=== PATIENT | female | born 1940 | race Two or more races ===

== ENCOUNTER 2024-04-07 16:54 | Emergency (ER) | payer MEDICAID, SELFPAY ==
[2024-04-07 17:20] VITALS: BP 147/87; PULSE 68; RESP 18; TEMP 37.2; O2SAT 94; BMI 34.3
--- NOTE | 2024-04-07 17:39 | XR_ITS ---
Examination: AP chest single view Technique one AP upright portable chest single view Exam date and time: April 07, 2024 1802 hours Comparison November 28, 2023 INDICATIONS: Chest pain beginning 3 days ago. 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
--- NOTE | 2024-04-07 17:39 | EKG_ITS ---
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
--- NOTE | 2024-04-07 17:40 | PD.EDRME ---
Rapid Medical Screening Exam RME Arrival date/time: 04/07/24 16:54 84-year-old female presents to the emergency department complaints of shortness of breath cough congestion x 3 days. I have greeted and performed a focused initial assessment of this patient. Initial appropriate labs ordered at this time. A comprehensive ED assessment and evaluation of the patient and analysis of all test and completion of medical decision making process will be conducted by additional ED provider. Chief Complaint: Flu Like Symptoms Time Seen by Provider: 04/07/24 17:16 Vital signs: Vital Signs Temperature 98.9 F 04/07/24 17:20 Pulse Rate 68 04/07/24 17:20 Respiratory Rate 18 04/07/24 17:20 Blood Pressure 147/87 H 04/07/24 17:20 Pulse Oximetry (%) 94 L 04/07/24 17:20 Oxygen Delivery Method Room Air 04/07/24 17:20
[2024-04-07] MEDS: ALBUTEROL/IPRATROPIUM (Duoneb) RT SOL 3 ML NEBU INH ×2 (18:27→20:20)
[2024-04-07 18:28] VITALS: PULSE 67; PULSE 72; RESP 14; RESP 92; O2SAT 93
[2024-04-07 18:37] LABS: Basophils % (Auto) 0 % (0-2.5); Eosinophils # (Auto) 0.3 Thou/mm3 (0.0-0.5); Eosinophils % (Auto) 4 % (0-10); Hematocrit 35.2 % (36.0-46.0); Hemoglobin 11.6 g/dL (12.0-16.0); Immature Granulocytes % (Auto) 0 % (0-0); Immature Granulocytes Auto 0.03 Thou/mm3 (0.00-0.00); Lymphocytes # (Auto) 2.6 Thou/mm3 (1.0-4.8); Lymphocytes % (Auto) 32 % (10-50); Mean Corpuscular Hemoglobin 30.7 pg (25.0-35.0); Mean Corpuscular Volume 93 fL (80-100); Monocytes # (Auto) 0.5 Thou/mm3 (0.0-0.8); Monocytes % (Auto) 7 % (0-12); Neutrophils # (Auto) 4.6 Thou/mm3 (1.8-7.7); Neutrophils % (Auto) 57 % (37-80); Nucleated Red Blood Cell % 0 /100 WBC (0); Platelet Count 228 Thou/mm3 (140-440); RDW Standard Deviation 46.3 fL (36.4-46.3); Red Blood Count 3.78 Miln/mm3 (4.00-5.20)
[2024-04-07 19:11] LABS: B-Type Natriuretic Peptide 84 pg/mL (0-100)
[2024-04-07 19:12] LABS: Partial Thromboplastin Time 28.5 Seconds (22.0-36.0); Prothrombin Time 11.4 Seconds (9.0-12.2)
[2024-04-07 19:23] LABS: Alanine Aminotransferase 10 U/L (10-49); Albumin, Serum 4.6 gm/dL (3.4-4.8); Albumin/Globulin Ratio 1.6 (1.2-2.2); Alkaline Phosphatase 119 U/L (46-116); Anion Gap 7 (7-16); Aspartate Amino Transferase 20 U/L (0-34); BUN/Creatinine Ratio 23 Ratio (12-20); Bilirubin,Total 0.3 mg/dL (0.3-1.2); Blood Urea Nitrogen 16 mg/dL (9-23); Calcium 10.2 mg/dL (8.3-10.6); Calcium (Corrected) 10.2 mg/dL (8.5-10.1); Carbon Dioxide 23.7 mMol/L (20.0-31.0); Chloride 107 mMol/L (98-107); Creatinine (Component) 0.7 mg/dL (0.6-1.3); Estimated Creatinine Clearance 65.3 mL/min (>60); Globulin 2.9 gm/dL (2.3-3.5); Glucose 110 mg/dL (74-106); Lipase 27 U/L (12-53); Magnesium 1.8 mg/dL (1.6-2.6); Osmolality,Calculated 277 (275-295); Sodium 138 mMol/L (136-145); Total Protein 7.5 gm/dL (5.7-8.2); Troponin I < 0.020 ng/mL (0.0-0.045); eGFR > 60 See Note
--- NOTE | 2024-04-07 19:53 | EDNOTE_ITS ---
Upper Respiratory Inf. RME/HPI General Chief Complaint: Flu Like Symptoms Stated Complaint: oxygen level low, cough, fever x 1wk Time Seen by Provider: 04/07/24 17:16 Arrival date/time: 04/07/24 16:54 Limitations: no limitations RME / HPI RME / HPI Narrative: 04/07/24 16:54 84-year-old female presents to the emergency department complaints of shortness of breath cough congestion x 3 days. I have greeted and performed a focused initial assessment of this patient. Initial appropriate labs ordered at this time. A comprehensive ED assessment and evaluation of the patient and analysis of all test and completion of medical decision making process will be conducted by additional ED provider. Dr. Garcia's Main ED Evaluation: 84yo female accompanied by her daughter pres ents to the ED for a chief complaint of flu-like symptoms x 3 days. Patient's daughter states the patient has had a cough and fever at home for the last 3 days. Daughter states the patient started feeling short of breath today, so she brought her in for evaluation. She denies any BLE swelling, N/V or any other associated symptoms. No known allergies. Related Data Home Medications ?Medication ?Instructions ?Recorded ?Confirmed amlodipine 5 mg tablet 5 mg PO QDAY 01/12/23 01/12/23 losartan 100 mg tablet 100 mg PO QDAY 01/12/23 01/12/23 Previous Rx's ?Medication ?Instructions ?Recorded metoprolol tartrate 25 mg tablet 25 mg PO BID #60 tabs 12/13/18 albuterol sulfate 90 mcg/actuation 2 puff inhalation Q6H PRN 03/29/23 aerosol inhaler (Ventolin HFA) shortness of breath or wheezing #8.5 grams amoxicillin 875 mg-potassium 1 tab PO BID #14 tabs 03/29/23 clavulanate 125 mg tablet albuterol sulfate 90 mcg/actuation 2 inh inhalation Q6H PRN shortness 11/28/23 breath activated powder inhaler of breath #1 ea (ProAir RespiClick) nirmatrelvir 300 mg (150 mg See Rx Instructions PO .COMPLEX 11/28/23 x2)-ritonavir 100 mg tablet,dose #30 tabs pack (Paxlovid) albuterol sulfate 90 mcg/actuation 2 puff inhalation Q6H PRN cough 5 04/07/24 aerosol inhaler days #8.5 grams amoxicillin 875 mg-potassium 1 tab PO BID #14 tabs 04/07/24 clavulanate 125 mg tablet Allergies Allergy/AdvReac Type Severity Reaction Status Date / Time No Known Allergies Allergy Verified 04/07/24 16:58 Review of Systems Review of Systems Systems Reviewed: All systems reviewed, normal except as documented Past Medical History Past Medical History NEUROLOGIC: Positive Neurological Disorders and Seizures (30 years ago) CARDIAC: Positive Cardiac Disorders, Hypercholesterolemia, Edema, Deep Vein Thrombosis, Hypertension and Hypotension; Negative Congestive Heart Failure RESPIRATORY: Positive Asthma and Bronchitis; Negative Chronic Obstructive Pulmonary Disease (COPD) GASTROINTESTINAL: Positive Gastrointestinal Disorders (ventral hernia repair); Negative Hepatitis GENITOURINARY: Negative Genitourinary Disorders or Renal Disease MUSCULOSKELETAL: Positive Musculoskeletal Disorders and Arthritis ENT: Positive Cataracts, Glaucoma and Blind (blind right side) ENDOCRINE: Negative Endocrine Disorders, Diabetes Mellitus Type 1 or Diabetes Mellitus Type 2 HEMATOLOGIC: Negative Sickle Cell Disease OTHER HISTORY: Positive Hospitalization and Blood Transfusions; Negative Falls, Blood Transfusion Reaction, Anesthesia Reactions or Cancer Family History FAMILY HISTORY: Positive Family Respiratory Disorders, Family Cardiac Disorders and Family Cancer Surgical History SURGICAL: Positive Abdominal Surgery and Hysterectomy Social History SMOKING STATUS: Never smoker SUBSTANCE USE: does not use ED Exam General Limitations: Present no limitations General appearance: Present alert and in no apparent distress Head Head exam: Present atraumatic Eye Eye exam: Present normal appearance, PERRL and EOMI ENT ENT exam: Present normal exam, normal oropharynx and mucous membranes moist Neck Neck exam: Present normal inspection, full ROM and trachea midline Chest Chest inspection: Present normal inspection and symmetric chest wall rise Respiratory Respiratory exam: Present other (rhonchi bilaterally) Cardiovascular Cardiovascular exam: Present regular rate, normal rhythm and normal heart sounds Abdominal Exam Abdominal exam: Present soft and normal bowel sounds Extremities Exam Extremities exam: Present normal inspection and full ROM; Absent pedal edema Back Exam Back exam: Present normal inspection and full ROM Neurological Exam Neurological exam: Present alert, oriented X3 and CN II-XII intact Psychiatric Psychiatric exam: Present normal affect and normal mood Skin Skin exam: Present warm, dry, intact and normal color Course Course Course Narrative: CXR is ordered for determining the etiology of shortness of breath. Quality Measures none Orders Category Date Time Status Bedside COVID-19 Antigen Test NOW Care 04/07/24 17:39 Active Bedside Influenza A&B Antigen Test NOW Care 04/07/24 17:40 Active Crop Supervisor STAT Care 04/07/24 17:39 Active Continuous Pulse Oximetry ONCE Care 04/07/24 17:39 Active EKG (ED ONLY) *Do not use* NOW Care 04/07/24 17:39 Completed Insert IV STAT Care 04/07/24 17:39 Active EKG (ED Only) Stat Exams 04/07/24 17:39 Draft XR chest 1V portable Stat Exams 04/07/24 17:39 Completed B-Type Natriuretic Peptide Stat Lab 04/07/24 18:19 Completed CBC Stat Lab 04/07/24 18:19 Completed Comprehensive Metabolic Panel Stat Lab 04/07/24 18:19 Completed Lipase Stat Lab 04/07/24 18:19 Completed Magnesium Stat Lab 04/07/24 18:19 Completed Partial Thromboplastin Time Stat Lab 04/07/24 18:19 Completed Prothrombin Time with INR Stat Lab 04/07/24 18:19 Completed Troponin I Stat Lab 04/07/24 18:19 Completed Albuterol/Ipratr Rt Tari [Duoneb Rt Tari] Med 04/07/24 17:39 Discontinued 3 ml INH X1 ONE Albuterol/Ipratr Rt Tari [Duoneb Rt Tari] Med 04/07/24 19:59 Discontinued 3 ml INH X1 ONE Dexamethasone Inj [Decadron Inj] Med 04/07/24 19:59 Discontinued 10 mg PO X1 ONE Oxygen Delivery NOW RT 04/07/24 17:39 Active Vital Signs Vital signs: Vital Signs Temperature 98.9 F 04/07/24 17:20 Pulse Rate 68 04/07/24 17:20 Respiratory Rate 18 04/07/24 17:20 Blood Pressure 147/87 H 04/07/24 17:20 Pulse Oximetry (%) 94 L 04/07/24 17:20 Oxygen Delivery Method Room Air 04/07/24 17:20 Upper Respiratory Infection Patient data External records reviewed:: [facility] previous records (Per chart review, patient was seen here on 11/28/23 for pneumonia 2/2 COVID.) Clinical information provided by:: patient and family Social determinants that could affect healthcare access:: none Patient has the following chronic illnesses:: HTN, HLD, asthma How is presenting disease/condition affected by chronic disease/condition?: exacerbated by Evaluation data The following diagnostics were reviewed and interpreted by me:: lab results, radiology exam(s) and EKG tracing(s) Lab and/or radiology exams considered but not ordered:: none Interpretation Summary: Bedside COVID and Influenza swabs are negative, CBC is normal, CMP is normal, BNP is normal, Troponin is normal, according to my interpretation. EKG done at 1822, NSR, rate of 67, left axis deviation, old LBBB, no scarbosa criteria, similar to previous EKG done in 11/2023, according to my interpretation. ------ I have personally reviewed the radiology data and agree with the radiologist's interpretation below: [facility] Report Signed Patient: SHIREEN COLLINS Record#: [id number] Birthdate: 1940 Age/Sex: 84 / F Location: [facility] Attending Dr: Ordering Physician: Lashon Pollack Date of Service: 04/07/24 Procedure(s): XR chest 1V portable Accession Number(s): [id number] cc: Luis Carlos Mendoza MD; NO PRIMARY/FAMILY,PHYSICIAN; Lashon Pollack~ Examination: AP chest single view Technique one AP upright portable chest single view Exam date and time: April 07, 2024 1802 hours Comparison November 28, 2023 INDICATIONS: Chest pain beginning 3 days ago. 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 Dictated By: Luis Carlos Mendoza MD Signed By: <Electronically signed by Luis Carlos Mendoza MD in [place]> 04/07/24 1825 Medications / Prescriptions Medications or Prescriptions considered but not ordered:: none Medication administrations:: Medication Administration History Discontinued Medications Albuterol/Ipratropium (Albuterol/Ipratropium (Duoneb) Rt Tari 3 Ml Nebu) 3 ml INH X1 ONE Stop: 04/07/24 17:40 Last Admin: 04/07/24 18:27 Dose: 3 ml Documented By: ETHAN Albuterol/Ipratropium (Albuterol/Ipratropium (Duoneb) Rt Tari 3 Ml Nebu) 3 ml INH X1 ONE Stop: 04/07/24 20:00 Last Admin: 04/07/24 20:20 Dose: 3 ml Documented By: ETHAN Dexamethasone Sodium Phosphate (Dexamethasone Sod Phos Inj 10 Mg/Ml Vial) 10 mg PO X1 ONE Stop: 04/07/24 20:00 Last Admin: 04/07/24 20:08 Dose: 10 mg Documented By: RICHARD see above Consultations Consultation(s) initiated? (list below): No Diagnosis Upper Respiratory Differential Diagnosis: upper respiratory infection, viral infection and other (pneumonia, COVID, bacterial pneumonia) Most likely diagnosis given after review of the tests above:: see below Admission Indicated Admission indicated?: not indicated Admission Request Was there a request for admission?: No Disposition Plan Disposition Plan: Discharge Discharge Attestation Discharge Attestation: The patient and all family members were given an opportunity to ask questions and understood the discharge instructions. Discharge instructions specifically effects, indications for sooner follow up or return to the emergency department, and the expected course of current diagnosis. Patient condition: Stable Discharge Plan Plan Patient Disposition: HOME (Self Care) Patient condition on transfer: Stable Prescriptions/Referrals Prescriptions/Med Rec: No Action metoprolol tartrate 25 mg Tablet 25 mg PO BID Qty: 60 0RF Hold Instructions: f/u with PCP amlodipine 5 mg Tablet 5 mg PO QDAY Hold Instructions: f/u with PCP losartan 100 mg tablet 100 mg PO QDAY Hold Instructions: f/u with PCP amoxicillin-pot clavulanate 875-125 mg tablet 1 tab PO BID Qty: 14 0RF albuterol sulfate [Ventolin HFA] 90 mcg/actuation HFA aerosol inhaler 2 puff inhalation Q6H PRN (Reason: shortness of breath or wheezing) Qty: 8.5 0RF ProAir RespiClick 90 mcg/actuation aerosol powdr breath activated 2 inh inhalation Q6H PRN (Reason: shortness of breath) Qty: 1 0RF Paxlovid 300 mg (150 mg x 2)-100 mg tablets,dose pack See Rx Instructions .ROUTE .COMPLEX Qty: 30 0RF Rx Instructions: take TWO 150 mg tablets of nirmatrelvir with ONE 100 mg tablet of ritonavir twice daily for 5 days Referrals: No Primary/Family,Physician [Primary Care Provider] - In 1 week Problem List Clinical Impression: Upper respiratory infection, CAP (community acquired pneumonia) Patient/Caregiver Discharge Instructions Education Materials: ED Pneumonia (Adult) Print Language: Guamanian Stand Alone Forms: [employer]ki Award Info., Patient Portal Info Letter
[2024-04-07] MEDS: DEXAMETHASONE SOD PHOS INJ 10 MG/ML VIAL PO (20:08)
[2024-04-07 20:21] VITALS: PULSE 66; RESP 14; O2SAT 95
[2024-04-07] MEDS: AMOXICILLIN/POT CLAV 875 TABLET 1 TAB PO (21:59)
== END 2024-04-07 22:25 | disposition home or self-care (01) ==
PROVIDERS: Nurse Practitioner Primary Care; Emergency Provider Emergency Medicine
DX: J18.9 Pneumonia, unspecified organism (principal); J06.9 Acute upper respiratory infection, unspecified; R94.31 Abnormal electrocardiogram [ECG] [EKG]
CPT/HCPCS: 36415; 71045; 80053; 83690; 83735; 83880; 84484; 85025; 85610; 85730; 93005; 94640; 99284; A9270; J1100

== ENCOUNTER 2024-04-12 21:21 | Inpatient (IN) | payer MEDICAID, SELFPAY ==
--- NOTE | 2024-04-12 21:23 | XR_ITS ---
Examination: AP chest single view Technique: AP portable upright chest single view Exam date and time: April 12, 2024 2159 hrs. Comparison April 07, 2018 Indications: Shortness of breath today. Findings: Minor prominence left ventricle Accentuation of bronchovascular markings No lobar pneumonia Prominent osteopenia Impression: Bronchitis pattern
--- NOTE | 2024-04-12 21:25 | PD.EDADULT ---
ED General RME/HPI General Chief complaint: General Adult/Misc Complain Stated complaint: GENERAL ILLNESS Time Seen by Provider: 04/12/24 21:23 Arrival date/time: 04/12/24 21:21 CC: Generalized weakness and not feeling well patient presents to the ER with 1 week of symptoms patient was diagnosed 1 week ago with pneumonia is on her last day of antibiotics. EMS report ambulatory speaking in full sentences on 24-hour oxygen. After walking some distance patient was tachycardic but the minute she sat down the heart rate became normal. Patient has no chest pain shortness of breath or difficulty breathing. Related Data Home Medications ?Medication ?Instructions ?Recorded ?Confirmed amlodipine 5 mg tablet 5 mg PO QDAY 01/12/23 01/12/23 losartan 100 mg tablet 100 mg PO QDAY 01/12/23 01/12/23 Previous Rx's ?Medication ?Instructions ?Recorded metoprolol tartrate 25 mg tablet 25 mg PO BID #60 tabs 12/13/18 albuterol sulfate 90 mcg/actuation 2 puff inhalation Q6H PRN 03/29/23 aerosol inhaler (Ventolin HFA) shortness of breath or wheezing #8.5 grams amoxicillin 875 mg-potassium 1 tab PO BID #14 tabs 03/29/23 clavulanate 125 mg tablet albuterol sulfate 90 mcg/actuation 2 inh inhalation Q6H PRN shortness 11/28/23 breath activated powder inhaler of breath #1 ea (ProAir RespiClick) nirmatrelvir 300 mg (150 mg See Rx Instructions PO .COMPLEX 11/28/23 x2)-ritonavir 100 mg tablet,dose #30 tabs pack (Paxlovid) amoxicillin 875 mg-potassium 1 tab PO BID #14 tabs 04/07/24 clavulanate 125 mg tablet Allergies Allergy/AdvReac Type Severity Reaction Status Date / Time No Known Allergies Allergy Unverified 04/06/18 11:38 Review of Systems Review of Systems Narrative Review of Systems: GEN: No fever, no chills, no weight loss EYES: No discharge, no visual changes, no pain HEENT: No ear pain, no congestion, no sore throat PULM: No shortness of breath, no cough, no congestion CV: No chest pain, no dyspnea on exertion, no palpitations GI: No nausea, no vomiting, no diarrhea, no pain, no constipation : No frequency, no urgency, no dysuria MUSC/SKEL: No joint pain, no back pain SKIN: No rash PSYCH: No hallucinations, no depression HEME/LYMPH: No easy bleeding or bruising tendencies NEURO: + weakness, no headache Past Medical History Past Medical History NEUROLOGIC: Positive Migraine CARDIAC: Positive Cardiac Disorders, Hypercholesterolemia and Hypertension (TAKES MEDS); Negative Congestive Heart Failure RESPIRATORY: Positive Chronic Obstructive Pulmonary Disease (COPD), Asthma and Pneumonia GASTROINTESTINAL: Positive Gastrointestinal Disorders and Gastroesophageal Reflux Disease GENITOURINARY: Negative Renal Disease REPRODUCTIVE: Positive Previous Pregnancies (X6) MUSCULOSKELETAL: Positive Musculoskeletal Disorders and Arthritis ENT: Positive Cataracts (LEFT EYE) ENDOCRINE: Positive Diabetes Mellitus Type 2; Negative Diabetes Mellitus Type 1 HEMATOLOGIC: Negative Blood Disorders or Sickle Cell Disease PSYCHO/SOCIAL: Positive Anxiety (TAKES MEDS) OTHER HISTORY: Positive Chicken Pox, Measles and Mumps; Negative Blood Transfusions or Anesthesia Reactions Family History FAMILY HISTORY: Positive Family Cancer (SISTER /BREAST CA) Surgical History SURGICAL: Positive Cardiac Surgery, Open Heart Surgery, Coronary Artery Bypass Graft, Coronary Stent (X3 STENTS) and Angiogram (X3) Social History SMOKING STATUS: Never smoker ED Exam Narrative Physical exam: [General: Obese not in any acute distress Head normocephalic HEENT: 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 All other subsystems of HEENT are within acceptable limits Neck is supple nontender Chest equal chest rise nontender to palpation Respiratory: Clear to auscultation no wheezes crackles or rubs CV: Rate rhythm is regular no murmurs rubs or clicks Abdomen is distended secondary to body habitus soft nontender no masses positive bowel sounds all 4 quadrants Back: No CVA tenderness no spinous process tenderness from cervical spine thoracic and lumbar spine Skin: Intact no petechiae rash induration ulceration or crepitus Extremities: Moving all extremity against resistance cap refill less than 2 seconds neurosensory intact. Minimal edema in the lower extremities. Neuro: Awake alert oriented x3 Glascow coma 15 no focal deficits] Course Quality Measures none Orders Category Date Time Status Bedside COVID-19 Antigen Test NOW Care 04/12/24 23:58 Active COVID-19 Screening Questionnaire NOW Care 04/13/24 06:07 Active Decision to Admit X1 Care 04/13/24 06:07 Completed Saline [Insert IV] NOW Care 04/12/24 23:[address] angio chest abdomen pelvis Stat Exams 04/12/24 23:[address] head/brain wo con Stat Exams 04/12/24 23:57 Completed EKG (ED Only) Stat Exams 04/12/24 21:28 Draft XR chest 1V Stat Exams 04/12/24 21:23 Completed BNP [B-Type Natriuretic Peptide] Stat Lab 04/12/24 23:58 Completed CBC Stat Lab 04/12/24 21:35 Completed CBC Stat Lab 04/12/24 22:57 Completed CMP [Comprehensive Metabolic Panel] Stat Lab 04/12/24 22:57 Completed Comprehensive Metabolic Panel Stat Lab 04/12/24 21:35 Completed D-Dimer Stat Lab 04/12/24 23:58 Completed Lipase Stat Lab 04/12/24 22:57 Completed Magnesium Stat Lab 04/12/24 23:59 Completed RSV [Respiratory Syncytial Virus Ag] Stat Lab 04/12/24 05:43 Completed TSH [Thyroid Stimulating Hormone] Stat Lab 04/12/24 23:59 Completed Troponin I Stat Lab 04/12/24 21:35 Completed Troponin I Stat Lab 04/12/24 22:57 Completed UA, C/S IF [Urinalysis, C/S if Indicated] Stat Lab 04/12/24 23:59 Ordered Urinalysis Stat Lab 04/12/24 21:24 Ordered ACETAMINOPHEN w/COD 300-30 [Tylenol w/Cod #3] Med 04/12/24 23:56 Discontinued 2 tab PO X1 ONE Albuterol/Ipratr Rt Tari [Duoneb Rt Tari] Med 04/12/24 23:56 Discontinued 3 ml INH X1 ONE Azithromycin Inj [Zithromax Inj] 500 mg Med 04/13/24 06:08 Discontinued Sodium Chloride 0.9% 250 ml [Ns] 250 ml IV X1 MethylPREDNISolone.* [SoluMEDROL Inj] Med 04/12/24 23:56 Discontinued 125 mg IVP X1 ONE Ondansetron Odt [Zofran Odt] Med 04/12/24 22:44 Discontinued 4 mg PO X1 ONE cefTRIAXone/D5w 1gm IV premix [Rocephin/D5w 1gm IV Med 04/13/24 06:08 Discontinued premix] 50 ml IV X1 Vital Signs Vital signs: Vital Signs Pulse Rate 66 04/12/24 21:27 Respiratory Rate 20 04/12/24 21:27 Blood Pressure 188/97 H 04/12/24 21:27 Pulse Oximetry (%) 97 04/12/24 21:27 [facility] Patient data External records reviewed:: [facility] previous records and EMS form Clinical information provided by:: patient and EMS Social determinants that could affect healthcare access:: none Patient has the following chronic illnesses:: Hypertension diabetes hyperlipidemia on Plavix How is presenting disease/condition affected by chronic disease/condition?: uneffected by Evaluation data The following diagnostics were reviewed and interpreted by me:: lab results, radiology exam(s) and EKG tracing(s) Lab and/or radiology exams considered but not ordered:: EKG performed at 2144 shows a ventricular rate of 72 NH interval 166 QRS of 169 QTc of 436 this is a left axis deviation. Most recent EKG for comparison was March 2018 shows a sinus rhythm nonspecific ST segment changes but no left bundle branch block. Interpretation Summary: Pneumonia Medications Medications considered but not ordered:: None Medication administrations:: Medication Administration History Acetaminophen (Acetaminophen 325 Mg Tablet) 650 mg PO Q6H PRN PRN Reason: Mild Pain 1-3 or Fever >100.4 Stop: 05/13/24 07:55 Albuterol/Ipratropium (Albuterol/Ipratropium (Duoneb) Rt Tari 3 Ml Nebu) 3 ml INH Q4HRRT [facility] Stop: 05/13/24 10:59 Last Admin: 04/13/24 10:45 Dose: 3 ml Documented By: GREGORIO Heparin Sodium (Porcine) (Heparin Sod Inj 5000 Unit/Ml Vial) 5,000 unit SC Q12HR NANNETTE Stop: 04/27/24 08:59 Last Admin: 04/13/24 08:44 Dose: 5,000 unit Documented By: GIO Co-signed By: JIMBO Ceftriaxone Sodium/Dextrose (Rocephin/D5w 1gm Iv Premix) 50 mls @ 100 mls/hr IV 2100 NANNETTE Stop: 04/20/24 20:59 Azithromycin 500 mg/ Sodium (Chloride) 250 mls @ 250 mls/hr IV X1 ONE Stop: 04/14/24 09:59 Losartan Potassium (Losartan Potassium 25 Mg Tablet) 100 mg PO QDAY NANNETTE Stop: 05/13/24 08:59 Last Admin: 04/13/24 08:44 Dose: 100 mg Documented By: GIO Pantoprazole Sodium (Pantoprazole Inj 40 Mg Vial) 40 mg IV QDAY NANNETTE Stop: 05/13/24 08:59 Last Admin: 04/13/24 08:44 Dose: 40 mg Documented By: GIO Discontinued Medications Acetaminophen/Codeine Phosphate (Acetaminophen W/Cod 300-30 Tablet) 2 tab PO X1 ONE Stop: 04/12/24 23:57 Last Admin: 04/13/24 01:07 Dose: 2 tab Documented By: TOR Albuterol/Ipratropium (Albuterol/Ipratropium (Duoneb) Rt Tari 3 Ml Nebu) 3 ml INH X1 ONE Stop: 04/12/24 23:57 Last Admin: 04/13/24 00:42 Dose: 3 ml Documented By: ETHAN Azithromycin 500 mg/ Sodium (Chloride) 250 mls @ 250 mls/hr IV X1 ONE Stop: 04/13/24 07:07 Last Infusion: 04/13/24 08:02 Dose: Infused Documented By: Admin: 04/13/24 06:45 Dose: 250 mls/hr Documented By: TOR Ceftriaxone Sodium/Dextrose (Rocephin/D5w 1gm Iv Premix) 50 mls @ 100 mls/hr IV X1 ONE Stop: 04/13/24 06:37 Last Infusion: 04/13/24 08:02 Dose: Infused Documented By: Admin: 04/13/24 06:44 Dose: 100 mls/hr Documented By: TOR Magnesium Sulfate (Magnesium Sulfate Ivpb) 2 gm in 50 mls @ 25 mls/hr IV X1 ONE Stop: 04/13/24 10:02 Last Infusion: 04/13/24 11:00 Dose: Infused Documented By: Admin: 04/13/24 08:44 Dose: 25 mls/hr Documented By: GIO Azithromycin 500 mg/ Sodium (Chloride) 250 mls @ 250 mls/hr IV X1 ONE Stop: 04/13/24 13:59 Methylprednisolone Sodium Succinate (Methylprednisolone Sod Succ 62.5 Mg/Ml 2ml Vial) 125 mg IVP X1 ONE Stop: 04/12/24 23:57 Last Admin: 04/13/24 01:08 Dose: 125 mg Documented By: TOR Ondansetron HCl (Ondansetron Odt 4 Mg Tabrap) 4 mg PO X1 ONE; Protocol Stop: 04/12/24 22:45 Last Admin: 04/13/24 01:08 Dose: 4 mg Documented By: TOR Sodium Chloride (Sodium Chloride Rt 10% 15 Ml Nebu) 5 ml INH X1 ONE Stop: 04/13/24 07:57 None Consultations Consultation(s) initiated? (list below): No Diagnosis Differential Diagnosis ED Complaint MDM: Pneumonia ACS MT CHF Most likely diagnosis given after review of the tests above:: Pneumonia Admission Indicated Admission indicated?: indicated Explain why admission is indicated or not indicated:: Stable for admission Admission Request Was there a request for admission?: No Disposition Plan Disposition Plan: Admit Medical Decision Making Differential Diagnosis Differential Diagnosis: Pneumonia ACS MT CHF Lab Data 04/12/24 22:57 04/12/24 22:57 Labs: Lab Results 04/12/24 04/12/24 04/12/24 Range/Units 00:00 05:43 21:35 WBC 10.4 (3.6-11.0) Thou/mm3 RBC 3.94 L (4.00-5.20) Miln/mm3 Hgb 12.1 (12.0-16.0) g/dL Hct 36.5 (36.0-46.0) % MCV 93 (80-100) fL MCH 30.7 (25.0-35.0) pg MCHC 33.2 (31.0-37.0) g/dl RDW Std Deviation 46.0 (36.4-46.3) fL Plt Count 259 (140-440) Thou/mm3 Neut % (Auto) 53 (37-80) % Lymph % (Auto) 37 (10-50) % Gilchrist % (Auto) 5 (0-12) % Eos % (Auto) 3 (0-10) % Baso % (Auto) 0 (0-2.5) % Neut # (Auto) 5.6 (1.8-7.7) Thou/mm3 Lymph # (Auto) 3.9 (1.0-4.8) Thou/mm3 Gilchrist # (Auto) 0.6 (0.0-0.8) Thou/mm3 Eos # (Auto) 0.3 (0.0-0.5) Thou/mm3 Baso # (Auto) 0.0 (0.0-0.2) Thou/mm3 Immature Gran # (Auto) 0.06 H (0.00-0.00) Thou/mm3 Absolute Nucleated RBC 0.00 (0.00-0.00) Thou/mm3 Immature Gran % 1 H (0-0) % Nucleated RBC % 0 (0) /100 WBC D-Dimer 2310 H (<600) ng/mL Sodium 141 (136-145) mMol/L Potassium 4.1 (3.4-5.1) mMol/L Chloride 109 H (98-107) mMol/L Carbon Dioxide 23.3 (20.0-31.0) mMol/L Anion Gap 9 (7-16) BUN 13 (9-23) mg/dL Creatinine 0.7 (0.6-1.3) mg/dL Estim Creat Clear Calc eGFR > 60 (60 - ) See Note BUN/Creatinine Ratio 19 (12-20) Ratio Glucose 103 (74-106) mg/dL Calculated Osmolality 281 (275-295) Calcium 10.4 (8.3-10.6) mg/dL Corrected Calcium 10.4 H (8.5-10.1) mg/dL Magnesium 1.6 (1.6-2.6) mg/dL Total Bilirubin 0.4 (0.3-1.2) mg/dL AST 21 (0-34) U/L ALT 11 (10-49) U/L Alkaline Phosphatase 111 (46-116) U/L Troponin I < 0.020 (0.0-0.045) ng/mL B-Natriuretic Peptide 119 H (0-100) pg/mL Total Protein 7.0 (5.7-8.2) gm/dL Albumin 4.1 (3.4-4.8) gm/dL Globulin 2.9 (2.3-3.5) gm/dL Albumin/Globulin Ratio 1.4 (1.2-2.2) Lipase (12-53) U/L TSH 1.88 (0.55-4.78) uIU/mL RSV Rapid Negative (Negative) 04/12/24 Range/Units 22:57 WBC 10.1 (3.6-11.0) Thou/mm3 RBC 4.01 (4.00-5.20) Miln/mm3 Hgb 12.3 (12.0-16.0) g/dL Hct 37.2 (36.0-46.0) % MCV 93 (80-100) fL MCH 30.7 (25.0-35.0) pg MCHC 33.1 (31.0-37.0) g/dl RDW Std Deviation 46.8 H (36.4-46.3) fL Plt Count 273 (140-440) Thou/mm3 Neut % (Auto) 55 (37-80) % Lymph % (Auto) 35 (10-50) % Gilchrist % (Auto) 6 (0-12) % Eos % (Auto) 3 (0-10) % Baso % (Auto) 0 (0-2.5) % Neut # (Auto) 5.6 (1.8-7.7) Thou/mm3 Lymph # (Auto) 3.5 (1.0-4.8) Thou/mm3 Gilchrist # (Auto) 0.6 (0.0-0.8) Thou/mm3 Eos # (Auto) 0.3 (0.0-0.5) Thou/mm3 Baso # (Auto) 0.0 (0.0-0.2) Thou/mm3 Immature Gran # (Auto) 0.07 H (0.00-0.00) Thou/mm3 Absolute Nucleated RBC 0.00 (0.00-0.00) Thou/mm3 Immature Gran % 1 H (0-0) % Nucleated RBC % 0 (0) /100 WBC D-Dimer (<600) ng/mL Sodium 142 (136-145) mMol/L Potassium 4.1 (3.4-5.1) mMol/L Chloride 108 H (98-107) mMol/L Carbon Dioxide 25.7 (20.0-31.0) mMol/L Anion Gap 8 (7-16) BUN 13 (9-23) mg/dL Creatinine 0.8 (0.6-1.3) mg/dL Estim Creat Clear Calc Not Performed. eGFR > 60 (60 - ) See Note BUN/Creatinine Ratio 16 (12-20) Ratio Glucose 101 (74-106) mg/dL Calculated Osmolality 283 (275-295) Calcium 10.6 (8.3-10.6) mg/dL Corrected Calcium 10.6 H (8.5-10.1) mg/dL Magnesium (1.6-2.6) mg/dL Total Bilirubin 0.4 (0.3-1.2) mg/dL AST 23 (0-34) U/L ALT 10 (10-49) U/L Alkaline Phosphatase 111 (46-116) U/L Troponin I < 0.020 (0.0-0.045) ng/mL B-Natriuretic Peptide (0-100) pg/mL Total Protein 7.3 (5.7-8.2) gm/dL Albumin 4.4 (3.4-4.8) gm/dL Globulin 2.9 (2.3-3.5) gm/dL Albumin/Globulin Ratio 1.5 (1.2-2.2) Lipase 31 (12-53) U/L TSH (0.55-4.78) uIU/mL RSV Rapid (Negative) Discharge Plan Plan Patient Disposition: Admit Acute Care w/in Hospital Problem List Clinical Impression: Acute respiratory failure with hypoxia, Pneumonia
[2024-04-12 21:27] VITALS: BP 188/97; PULSE 66; RESP 20; O2SAT 97
--- NOTE | 2024-04-12 21:28 | EKG_ITS ---
[facility] Test Date: 2024-04-12 Pat Name: SHIREEN OROZCO Department: Room: - Gender: Female [employer]r: : 1940 Requested By: Aung Nice Order Number: [id number] Reading MD: Aung Nice Measurements Intervals [place] Rate: 72 P: 48 MO: 166 QRS: -53 QRSD: 169 T: 109 QT: 412 QTc: 452 Interpretive Statements SINUS RHYTHM MARKED LEFT AXIS DEVIATION [QRS AXIS < -30] LEFT BUNDLE BRANCH BLOCK [120+ ms QRS DURATION, 80+ ms Q/S IN V1/V2, 85+ ms R IN I/aVL/V5/V6] Compared to ECG 03/28/2018 05:13:53 Left-axis deviation now present Left bundle-branch block now present Atrial abnormality no longer present T-wave abnormality no longer present /store/S0/[id number].pdf
[2024-04-12 21:41] LABS: Basophils % (Auto) 0 % (0-2.5); Eosinophils # (Auto) 0.3 Thou/mm3 (0.0-0.5); Eosinophils % (Auto) 3 % (0-10); Hematocrit 36.5 % (36.0-46.0); Hemoglobin 12.1 g/dL (12.0-16.0); Immature Granulocytes % (Auto) 1 % (0-0); Immature Granulocytes Auto 0.06 Thou/mm3 (0.00-0.00); Lymphocytes # (Auto) 3.9 Thou/mm3 (1.0-4.8); Lymphocytes % (Auto) 37 % (10-50); Mean Corpuscular HGB Conc 33.2 g/dl (31.0-37.0); Mean Corpuscular Hemoglobin 30.7 pg (25.0-35.0); Mean Corpuscular Volume 93 fL (80-100); Monocytes # (Auto) 0.6 Thou/mm3 (0.0-0.8); Monocytes % (Auto) 5 % (0-12); Neutrophils # (Auto) 5.6 Thou/mm3 (1.8-7.7); Neutrophils % (Auto) 53 % (37-80); Nucleated Red Blood Cell % 0 /100 WBC (0); Platelet Count 259 Thou/mm3 (140-440); Red Blood Count 3.94 Miln/mm3 (4.00-5.20); White Blood Count 10.4 Thou/mm3 (3.6-11.0)
[2024-04-12 22:00] VITALS: PULSE 80; RESP 16; O2SAT 98; BMI 33.3
[2024-04-12 22:00] LABS: Alanine Aminotransferase 11 U/L (10-49); Albumin, Serum 4.1 gm/dL (3.4-4.8); Albumin/Globulin Ratio 1.4 (1.2-2.2); Alkaline Phosphatase 111 U/L (46-116); Anion Gap 9 (7-16); Aspartate Amino Transferase 21 U/L (0-34); BUN/Creatinine Ratio 19 Ratio (12-20); Bilirubin,Total 0.4 mg/dL (0.3-1.2); Blood Urea Nitrogen 13 mg/dL (9-23); Calcium 10.4 mg/dL (8.3-10.6); Calcium (Corrected) 10.4 mg/dL (8.5-10.1); Carbon Dioxide 23.3 mMol/L (20.0-31.0); Chloride 109 mMol/L (98-107); Creatinine (Component) 0.7 mg/dL (0.6-1.3); Globulin 2.9 gm/dL (2.3-3.5); Glucose 103 mg/dL (74-106); Osmolality,Calculated 281 (275-295); Potassium 4.1 mMol/L (3.4-5.1); Sodium 141 mMol/L (136-145); Troponin I < 0.020 ng/mL (0.0-0.045); eGFR > 60 See Note
--- NOTE | 2024-04-12 22:42 | PD.EDRME ---
Rapid Medical Screening Exam RME Arrival date/time: 04/12/24 22:35 CC: Low center abdominal pain HPI onset 830 this evening after eating 1 episode of vomiting no diarrhea currently the pain is 6 on a 10 scale initial assessment by EMS show the pain was an 8 on a 10 scale denies any diarrhea history of hypertension took her last amlodipine this evening. Is awake alert oriented nontoxic-appearing EMS report hypertensive and tachycardia and route. Chief Complaint: General Adult/Misc Complain Time Seen by Provider: 04/12/24 22:42 Vital signs: Vital Signs Temperature 98 F 04/12/24 22:45 Pulse Rate 89 04/12/24 22:45 Respiratory Rate 17 04/12/24 22:45 Blood Pressure 188/97 H 04/12/24 22:45 Pulse Oximetry (%) 95 04/12/24 22:45 Oxygen Delivery Method Room Air 04/12/24 22:45
[2024-04-12 22:45] VITALS: BP 188/97; PULSE 89; RESP 17; TEMP 36.6; O2SAT 95
--- NOTE | 2024-04-12 22:49 | EDNOTE_ITS ---
ED General RME/HPI General Chief complaint: General Adult/Misc Complain Stated complaint: GENERAL ILLNESS Time Seen by Provider: 04/12/24 21:23 Arrival date/time: 04/12/24 22:35 CC: Generalized weakness and chest pain HPI ongoing for the past 3 days, the patient was seen here recently diagnosed with pneumonia and discharged home. The patient states the last day of antibiotics was today. The patient is awake alert oriented. Related Data Home Medications ?Medication ?Instructions ?Recorded ?Confirmed amlodipine 5 mg tablet 5 mg PO QDAY 01/12/23 01/12/23 losartan 100 mg tablet 100 mg PO QDAY 01/12/23 01/12/23 Previous Rx's ?Medication ?Instructions ?Recorded metoprolol tartrate 25 mg tablet 25 mg PO BID #60 tabs 12/13/18 albuterol sulfate 90 mcg/actuation 2 puff inhalation Q6H PRN 03/29/23 aerosol inhaler (Ventolin HFA) shortness of breath or wheezing #8.5 grams amoxicillin 875 mg-potassium 1 tab PO BID #14 tabs 03/29/23 clavulanate 125 mg tablet albuterol sulfate 90 mcg/actuation 2 inh inhalation Q6H PRN shortness 11/28/23 breath activated powder inhaler of breath #1 ea (ProAir RespiClick) nirmatrelvir 300 mg (150 mg See Rx Instructions PO .COMPLEX 11/28/23 x2)-ritonavir 100 mg tablet,dose #30 tabs pack (Paxlovid) amoxicillin 875 mg-potassium 1 tab PO BID #14 tabs 04/07/24 clavulanate 125 mg tablet Allergies Allergy/AdvReac Type Severity Reaction Status Date / Time No Known Allergies Allergy Unverified 04/06/18 11:38 Review of Systems Review of Systems Narrative Review of Systems: GEN: No fever, no chills, no weight loss EYES: No discharge, no visual changes, no pain HEENT: No ear pain, no congestion, no sore throat PULM: No shortness of breath, no cough, no congestion CV: No chest pain, no dyspnea on exertion, no palpitations GI: No nausea, no vomiting, no diarrhea, no pain, no constipation : No frequency, no urgency, no dysuria MUSC/SKEL: No joint pain, no back pain SKIN: No rash PSYCH: No hallucinations, no depression HEME/LYMPH: No easy bleeding or bruising tendencies NEURO: + weakness, no headache Past Medical History Past Medical History NEUROLOGIC: Positive Neurological Disorders and Seizures (30 years ago) CARDIAC: Positive Cardiac Disorders, Hypercholesterolemia, Edema, Deep Vein Thrombosis, Hypertension and Hypotension; Negative Congestive Heart Failure RESPIRATORY: Positive Asthma and Bronchitis; Negative Chronic Obstructive Pulmonary Disease (COPD) GASTROINTESTINAL: Positive Gastrointestinal Disorders (ventral hernia repair); Negative Hepatitis GENITOURINARY: Negative Genitourinary Disorders or Renal Disease MUSCULOSKELETAL: Positive Musculoskeletal Disorders and Arthritis ENT: Positive Cataracts, Glaucoma and Blind (blind right side) ENDOCRINE: Negative Endocrine Disorders, Diabetes Mellitus Type 1 or Diabetes Mellitus Type 2 HEMATOLOGIC: Negative Sickle Cell Disease OTHER HISTORY: Positive Hospitalization and Blood Transfusions; Negative Falls, Blood Transfusion Reaction, Anesthesia Reactions or Cancer Family History FAMILY HISTORY: Positive Family Respiratory Disorders, Family Cardiac Disorders and Family Cancer Surgical History SURGICAL: Positive Abdominal Surgery and Hysterectomy Social History SMOKING STATUS: Never smoker SUBSTANCE USE: does not use ED Exam Narrative Physical exam: [General: Obese not in any acute distress Head normocephalic HEENT: Within acceptable limits Neck is supple nontender Chest equal chest rise nontender to palpation Respiratory: Clear to auscultation no wheezes crackles or rubs CV: Rate rhythm is regular no murmurs rubs or clicks Abdomen is distended secondary to body habitus soft nontender no masses positive bowel sounds all 4 quadrants Back: No CVA tenderness no spinous process tenderness from cervical spine thoracic and lumbar spine Skin: Intact no petechiae rash induration ulceration or crepitus Extremities: Moving all extremity against resistance cap refill less than 2 seconds neurosensory intact Neuro: Awake alert oriented x2, person and place, Glascow coma 15 no focal deficits] Course Quality Measures none Orders Category Date Time Status Bedside COVID-19 Antigen Test NOW Care 04/12/24 23:58 Active COVID-19 Screening Questionnaire NOW Care 04/13/24 06:07 Active Decision to Admit X1 Care 04/13/24 06:07 Completed Saline [Insert IV] NOW Care 04/12/24 23:[address] angio chest abdomen pelvis Stat Exams 04/12/24 23:[address] head/brain wo con Stat Exams 04/12/24 23:57 Completed EKG (ED Only) Stat Exams 04/12/24 21:28 Draft XR chest 1V Stat Exams 04/12/24 21:23 Completed BNP [B-Type Natriuretic Peptide] Stat Lab 04/12/24 23:58 Completed CBC Stat Lab 04/12/24 21:35 Completed CBC Stat Lab 04/12/24 22:57 Completed CMP [Comprehensive Metabolic Panel] Stat Lab 04/12/24 22:57 Completed Comprehensive Metabolic Panel Stat Lab 04/12/24 21:35 Completed D-Dimer Stat Lab 04/12/24 23:58 Completed Lipase Stat Lab 04/12/24 22:57 Completed Magnesium Stat Lab 04/12/24 23:59 Completed RSV [Respiratory Syncytial Virus Ag] Stat Lab 04/12/24 05:43 Completed TSH [Thyroid Stimulating Hormone] Stat Lab 04/12/24 23:59 Completed Troponin I Stat Lab 04/12/24 21:35 Completed Troponin I Stat Lab 04/12/24 22:57 Completed UA, C/S IF [Urinalysis, C/S if Indicated] Stat Lab 04/12/24 23:59 Ordered Urinalysis Stat Lab 04/12/24 21:24 Ordered ACETAMINOPHEN w/COD 300-30 [Tylenol w/Cod #3] Med 04/12/24 23:56 Discontinued 2 tab PO X1 ONE Albuterol/Ipratr Rt Tari [Duoneb Rt Tari] Med 04/12/24 23:56 Discontinued 3 ml INH X1 ONE Azithromycin Inj [Zithromax Inj] 500 mg Med 04/13/24 06:08 Discontinued Sodium Chloride 0.9% 250 ml [Ns] 250 ml IV X1 MethylPREDNISolone.* [SoluMEDROL Inj] Med 04/12/24 23:56 Discontinued 125 mg IVP X1 ONE Ondansetron Odt [Zofran Odt] Med 04/12/24 22:44 Discontinued 4 mg PO X1 ONE cefTRIAXone/D5w 1gm IV premix [Rocephin/D5w 1gm IV Med 04/13/24 06:08 Discontinued premix] 50 ml IV X1 Vital Signs Vital signs: Vital Signs Pulse Rate 66 04/12/24 21:27 Respiratory Rate 20 04/12/24 21:27 Blood Pressure 188/97 H 04/12/24 21:27 Pulse Oximetry (%) 97 04/12/24 21:27 [facility] Patient data External records reviewed:: [facility] previous records and EMS form Clinical information provided by:: patient and EMS Social determinants that could affect healthcare access:: none Patient has the following chronic illnesses:: Recent diagnosis of pneumonia hypertension How is presenting disease/condition affected by chronic disease/condition?: u neffected by Evaluation data The following diagnostics were reviewed and interpreted by me:: lab results, radiology exam(s) and EKG tracing(s) Lab and/or radiology exams considered but not ordered:: See MDM Interpretation Summary: Bradycardia Medications Medications considered but not ordered:: None Medication administrations:: Medication Administration History Acetaminophen (Acetaminophen 325 Mg Tablet) 650 mg PO Q6H PRN PRN Reason: Mild Pain 1-3 or Fever >100.4 Stop: 05/13/24 07:55 Albuterol/Ipratropium (Albuterol/Ipratropium (Duoneb) Rt Tari 3 Ml Nebu) 3 ml INH Q4HRRT FOR[facility], 1928–1983 Stop: 05/13/24 10:59 Last Admin: 04/13/24 10:45 Dose: 3 ml Documented By: GREGORIO Heparin Sodium (Porcine) (Heparin Sod Inj 5000 Unit/Ml Vial) 5,000 unit SC Q12HR [facility], 1928–1983 Stop: 04/27/24 08:59 Last Admin: 04/13/24 08:44 Dose: 5,000 unit Documented By: GIO Co-signed By: JIMBO Ceftriaxone Sodium/Dextrose (Rocephin/D5w 1gm Iv Premix) 50 mls @ 100 mls/hr IV 2100 FOR[facility]LY [facility], 1928–1983 Stop: 04/20/24 20:59 Azithromycin 500 mg/ Sodium (Chloride) 250 mls @ 250 mls/hr IV X1 ONE Stop: 04/14/24 09:59 Losartan Potassium (Losartan Potassium 25 Mg Tablet) 100 mg PO QDAY FOR[facility], [facility]1983 Stop: 05/13/24 08:59 Last Admin: 04/13/24 08:44 Dose: 100 mg Documented By: GIO Pantoprazole Sodium (Pantoprazole Inj 40 Mg Vial) 40 mg IV QDAY [facility], 1928–1983 Stop: 05/13/24 08:59 Last Admin: 04/13/24 08:44 Dose: 40 mg Documented By: GIO Discontinued Medications Acetaminophen/Codeine Phosphate (Acetaminophen W/Cod 300-30 Tablet) 2 tab PO X1 ONE Stop: 04/12/24 23:57 Last Admin: 04/13/24 01:07 Dose: 2 tab Documented By: TOR Albuterol/Ipratropium (Albuterol/Ipratropium (Duoneb) Rt Tari 3 Ml Nebu) 3 ml INH X1 ONE Stop: 04/12/24 23:57 Last Admin: 04/13/24 00:42 Dose: 3 ml Documented By: ETHAN Azithromycin 500 mg/ Sodium (Chloride) 250 mls @ 250 mls/hr IV X1 ONE Stop: 04/13/24 07:07 Last Infusion: 04/13/24 08:02 Dose: Infused Documented By: Admin: 04/13/24 06:45 Dose: 250 mls/hr Documented By: TOR Ceftriaxone Sodium/Dextrose (Rocephin/D5w 1gm Iv Premix) 50 mls @ 100 mls/hr IV X1 ONE Stop: 04/13/24 06:37 Last Infusion: 04/13/24 08:02 Dose: Infused Documented By: Admin: 04/13/24 06:44 Dose: 100 mls/hr Documented By: TOR Magnesium Sulfate (Magnesium Sulfate Ivpb) 2 gm in 50 mls @ 25 mls/hr IV X1 ONE Stop: 04/13/24 10:02 Last Infusion: 04/13/24 11:00 Dose: Infused Documented By: Admin: 04/13/24 08:44 Dose: 25 mls/hr Documented By: GIO Azithromycin 500 mg/ Sodium (Chloride) 250 mls @ 250 mls/hr IV X1 ONE Stop: 04/13/24 13:59 Methylprednisolone Sodium Succinate (Methylprednisolone Sod Succ 62.5 Mg/Ml 2ml Vial) 125 mg IVP X1 ONE Stop: 04/12/24 23:57 Last Admin: 04/13/24 01:08 Dose: 125 mg Documented By: TOR Ondansetron HCl (Ondansetron Odt 4 Mg Tabrap) 4 mg PO X1 ONE; Protocol Stop: 04/12/24 22:45 Last Admin: 04/13/24 01:08 Dose: 4 mg Documented By: TOR Sodium Chloride (Sodium Chloride Rt 10% 15 Ml Nebu) 5 ml INH X1 ONE Stop: 04/13/24 07:57 None Consultations Consultation(s) initiated? (list below): No Diagnosis Differential Diagnosis ED Complaint MDM: Bradycardia ACS [place] Most likely diagnosis given after review of the tests above:: Bradycardia Admission Indicated Admission indicated?: indicated Explain why admission is indicated or not indicated:: Requires further medical management Admission Request Was there a request for admission?: No Disposition Plan Disposition Plan: Admit Medical Decision Making Differential Diagnosis Differential Diagnosis: Bradycardia ACS [place] Lab Data 04/12/24 22:57 04/12/24 22:57 Labs: Lab Results 04/12/24 04/12/24 04/12/24 Range/Units 00:00 05:43 21:35 WBC 10.4 (3.6-11.0) Thou/mm3 RBC 3.94 L (4.00-5.20) Miln/mm3 Hgb 12.1 (12.0-16.0) g/dL Hct 36.5 (36.0-46.0) % MCV 93 (80-100) fL MCH 30.7 (25.0-35.0) pg MCHC 33.2 (31.0-37.0) g/dl RDW Std Deviation 46.0 (36.4-46.3) fL Plt Count 259 (140-440) Thou/mm3 Neut % (Auto) 53 (37-80) % Lymph % (Auto) 37 (10-50) % [place] % (Auto) 5 (0-12) % Eos % (Auto) 3 (0-10) % Baso % (Auto) 0 (0-2.5) % Neut # (Auto) 5.6 (1.8-7.7) Thou/mm3 Lymph # (Auto) 3.9 (1.0-4.8) Thou/mm3 [place] # (Auto) 0.6 (0.0-0.8) Thou/mm3 Eos # (Auto) 0.3 (0.0-0.5) Thou/mm3 Baso # (Auto) 0.0 (0.0-0.2) Thou/mm3 Immature Gran # (Auto) 0.06 H (0.00-0.00) Thou/mm3 Absolute Nucleated RBC 0.00 (0.00-0.00) Thou/mm3 Immature Gran % 1 H (0-0) % Nucleated RBC % 0 (0) /100 WBC D-Dimer 2310 H (<600) ng/mL Sodium 141 (136-145) mMol/L Potassium 4.1 (3.4-5.1) mMol/L Chloride 109 H (98-107) mMol/L Carbon Dioxide 23.3 (20.0-31.0) mMol/L Anion Gap 9 (7-16) BUN 13 (9-23) mg/dL Creatinine 0.7 (0.6-1.3) mg/dL Estim Creat Clear Calc eGFR > 60 (60 - ) See Note BUN/Creatinine Ratio 19 (12-20) Ratio Glucose 103 (74-106) mg/dL Calculated Osmolality 281 (275-295) Calcium 10.4 (8.3-10.6) mg/dL Corrected Calcium 10.4 H (8.5-10.1) mg/dL Magnesium 1.6 (1.6-2.6) mg/dL Total Bilirubin 0.4 (0.3-1.2) mg/dL AST 21 (0-34) U/L ALT 11 (10-49) U/L Alkaline Phosphatase 111 (46-116) U/L Troponin I < 0.020 (0.0-0.045) ng/mL B-Natriuretic Peptide 119 H (0-100) pg/mL Total Protein 7.0 (5.7-8.2) gm/dL Albumin 4.1 (3.4-4.8) gm/dL Globulin 2.9 (2.3-3.5) gm/dL Albumin/Globulin Ratio 1.4 (1.2-2.2) Lipase (12-53) U/L TSH 1.88 (0.55-4.78) uIU/mL RSV Rapid Negative (Negative) 04/12/24 Range/Units 22:57 WBC 10.1 (3.6-11.0) Thou/mm3 RBC 4.01 (4.00-5.20) Miln/mm3 Hgb 12.3 (12.0-16.0) g/dL Hct 37.2 (36.0-46.0) % MCV 93 (80-100) fL MCH 30.7 (25.0-35.0) pg MCHC 33.1 (31.0-37.0) g/dl RDW Std Deviation 46.8 H (36.4-46.3) fL Plt Count 273 (140-440) Thou/mm3 Neut % (Auto) 55 (37-80) % Lymph % (Auto) 35 (10-50) % [place] % (Auto) 6 (0-12) % Eos % (Auto) 3 (0-10) % Baso % (Auto) 0 (0-2.5) % Neut # (Auto) 5.6 (1.8-7.7) Thou/mm3 Lymph # (Auto) 3.5 (1.0-4.8) Thou/mm3 [place] # (Auto) 0.6 (0.0-0.8) Thou/mm3 Eos # (Auto) 0.3 (0.0-0.5) Thou/mm3 Baso # (Auto) 0.0 (0.0-0.2) Thou/mm3 Immature Gran # (Auto) 0.07 H (0.00-0.00) Thou/mm3 Absolute Nucleated RBC 0.00 (0.00-0.00) Thou/mm3 Immature Gran % 1 H (0-0) % Nucleated RBC % 0 (0) /100 WBC D-Dimer (<600) ng/mL Sodium 142 (136-145) mMol/L Potassium 4.1 (3.4-5.1) mMol/L Chloride 108 H (98-107) mMol/L Carbon Dioxide 25.7 (20.0-31.0) mMol/L Anion Gap 8 (7-16) BUN 13 (9-23) mg/dL Creatinine 0.8 (0.6-1.3) mg/dL Estim Creat Clear Calc Not Performed. eGFR > 60 (60 - ) See Note BUN/Creatinine Ratio 16 (12-20) Ratio Glucose 101 (74-106) mg/dL Calculated Osmolality 283 (275-295) Calcium 10.6 (8.3-10.6) mg/dL Corrected Calcium 10.6 H (8.5-10.1) mg/dL Magnesium (1.6-2.6) mg/dL Total Bilirubin 0.4 (0.3-1.2) mg/dL AST 23 (0-34) U/L ALT 10 (10-49) U/L Alkaline Phosphatase 111 (46-116) U/L Troponin I < 0.020 (0.0-0.045) ng/mL B-Natriuretic Peptide (0-100) pg/mL Total Protein 7.3 (5.7-8.2) gm/dL Albumin 4.4 (3.4-4.8) gm/dL Globulin 2.9 (2.3-3.5) gm/dL Albumin/Globulin Ratio 1.5 (1.2-2.2) Lipase 31 (12-53) U/L TSH (0.55-4.78) uIU/mL RSV Rapid (Negative) Discharge Plan Plan Patient Disposition: Admit Acute Care w/in Hospital Problem List Clinical Impression: Acute respiratory failure with hypoxia, Pneumonia
[2024-04-12 23:13] LABS: Basophils % (Auto) 0 % (0-2.5); Eosinophils # (Auto) 0.3 Thou/mm3 (0.0-0.5); Eosinophils % (Auto) 3 % (0-10); Hematocrit 37.2 % (36.0-46.0); Hemoglobin 12.3 g/dL (12.0-16.0); Immature Granulocytes % (Auto) 1 % (0-0); Immature Granulocytes Auto 0.07 Thou/mm3 (0.00-0.00); Lymphocytes # (Auto) 3.5 Thou/mm3 (1.0-4.8); Lymphocytes % (Auto) 35 % (10-50); Mean Corpuscular HGB Conc 33.1 g/dl (31.0-37.0); Mean Corpuscular Hemoglobin 30.7 pg (25.0-35.0); Mean Corpuscular Volume 93 fL (80-100); Monocytes # (Auto) 0.6 Thou/mm3 (0.0-0.8); Monocytes % (Auto) 6 % (0-12); Neutrophils # (Auto) 5.6 Thou/mm3 (1.8-7.7); Neutrophils % (Auto) 55 % (37-80); Nucleated Red Blood Cell % 0 /100 WBC (0); Platelet Count 273 Thou/mm3 (140-440); RDW Standard Deviation 46.8 fL (36.4-46.3); Red Blood Count 4.01 Miln/mm3 (4.00-5.20); White Blood Count 10.1 Thou/mm3 (3.6-11.0)
[2024-04-12 23:35] LABS: Alanine Aminotransferase 10 U/L (10-49); Albumin, Serum 4.4 gm/dL (3.4-4.8); Albumin/Globulin Ratio 1.5 (1.2-2.2); Alkaline Phosphatase 111 U/L (46-116); Anion Gap 8 (7-16); Aspartate Amino Transferase 23 U/L (0-34); BUN/Creatinine Ratio 16 Ratio (12-20); Bilirubin,Total 0.4 mg/dL (0.3-1.2); Blood Urea Nitrogen 13 mg/dL (9-23); Calcium 10.6 mg/dL (8.3-10.6); Calcium (Corrected) 10.6 mg/dL (8.5-10.1); Carbon Dioxide 25.7 mMol/L (20.0-31.0); Chloride 108 mMol/L (98-107); Creatinine (Component) 0.8 mg/dL (0.6-1.3); Globulin 2.9 gm/dL (2.3-3.5); Glucose 101 mg/dL (74-106); Lipase 31 U/L (12-53); Osmolality,Calculated 283 (275-295); Potassium 4.1 mMol/L (3.4-5.1); Sodium 142 mMol/L (136-145); Total Protein 7.3 gm/dL (5.7-8.2); Troponin I < 0.020 ng/mL (0.0-0.045); eGFR > 60 See Note
--- NOTE | 2024-04-12 23:57 | XR_ITS ---
Examination: CTA chest, with intravenous contrast. CTA abdomen, with intravenous contrast. CTA pelvis, with intravenous contrast. 2-D sagittal and coronal reconstructions. 3-D reconstructions. Date and time of exam: April 13, 2024 0207 hrs. Indications: Onset chest pain shortness of breath congestion abdominal pain today CTDI vol (mgy) 17.0 DLP (MGycm) 1257 Technique: Multiple CTA images, 2.0 mm slice thickness, obtained chest, abdomen, pelvis, with the high-resolution 64 slice scanner. 100 cc Isovue-370 is administered intravenously. Sagittal and coronal 2-D reconstructions are obtained. 3-D reconstructions, angiographic images are obtained. 3-D postprocessing, including vascular maximum intensity projections. Low dose protocols were performed. One or more of the following dose reduction techniques were used; automated exposure control, adjustment of the mA and/or KV according to patient size, use of iterative reconstruction technique. Findings: Right thyromegaly with 13 mm right thyroid nodule No thoracic aortic aneurysm dilatation No pulmonary artery emboli Mild enlargement left atrium left ventricle Bilateral lung opacity consistent with pneumonia No focal liver or splenic lesion No gallstones 8 cm cystic lesion above the left kidney No pancreatic or adrenal mass Aorta normal size No bowel obstruction No CT findings of appendicitis or diverticulitis Mild thickening urinary bladder wall No pelvic mass Severe osteopenia Impression: Right thyromegaly with 13 mm right thyroid nodule, recommend thyroid sonography follow-up Negative for pulmonary artery emboli No thoracic aortic aneurysm dilatation Patchy areas of bilateral pneumonia 8mm cystic lesion above the left kidney, recommend abdominal sonography follow-up No CT findings of appendicitis bowel obstruction or diverticulitis Mild cystitis pattern
--- NOTE | 2024-04-12 23:57 | XR_ITS ---
Examination: CT brain head without contrast. 2-D sagittal coronal reconstructions Date and time of exam:April 13, 2024 0200 hrs. Indications: Onset altered mental status today CTDI: vol (mGy):53.7 DLP: (mGycm):1078 Technique: Multiple CT axial sections of the brain have been obtained, 5 mm slice thickness. Contrast has not been administered. 2-D sagittal, coronal reconstructions have been obtained Low dose protocols were performed. One or more of the following dose reduction techniques were used; automated exposure control, adjustment of the mA and/or KV according to patient size, use of iterative reconstruction technique. Findings: No significant ventricular enlargement. Intra-axial or extra-axial hemorrhage density is not seen. No mass effect or midline shift Basal cisterns are not remarkable. Fourth ventricle is midline. Cranial vault intact. Impression: Negative for acute hemorrhage, mass effect or midline shift
[2024-04-13] VITALS (19 sets, daily range): BP systolic 125–181; BP diastolic 60–111; PULSE 57–84; RESP 15–21; TEMP 36.2–37.1; O2SAT 91–99
[2024-04-13] MEDS: ALBUTEROL/IPRATROPIUM (Duoneb) RT SOL 3 ML NEBU INH ×5 (00:42→23:52)
[2024-04-13 01:02] LABS: D-Dimer 2310 ng/mL (<600)
[2024-04-13 01:06] LABS: Magnesium 1.6 mg/dL (1.6-2.6); Thyroid Stimulating Hormone 1.88 uIU/mL (0.55-4.78)
[2024-04-13] MEDS: ACETAMINOPHEN w/COD 300-30 TABLET 2 TAB PO (01:07)
[2024-04-13] MEDS: ONDANSETRON ODT 4 MG TABRAP PO (01:08)
[2024-04-13] MEDS: MethylPREDNISolone SOD SUCC 62.5 MG/ML 2ML VIAL 125 MG IVP (01:08)
[2024-04-13 01:52] LABS: B-Type Natriuretic Peptide 119 pg/mL (0-100)
--- NOTE | 2024-04-13 05:18 | PD.EDADDENDU ---
Emergency Room Addendum Addendum Narrative: At 11 PM on 04/12/2024, I took over the care from Aung Baer NP, see his notes for complete H&P and ED course. I reviewed all diagnostic test results. My interpretation of the EKG is sinus rhythm with no acute ST?T changes. My interpretation of the chest x-ray is increased bronchial markings. My review of the head CT report is: My review of the chest/abdomen/pelvis CT report is: Blood tests remarkable for D-dimer 2310, BNP 119. Urine specimen pending. At this point, diagnoses include Treatment here included Significant improvement Not yet done: I discussed the case with our hospitalist. About the presentation and exam and diagnostics and treatments here. And need of further care in the hospital. Will accept the patient. Not yet done: Based on my best medical judgment, made decision no further evaluation or treatment indicated at this time. Patient understands and agrees to the discharge instructions customized and printed, see below. Ramón Chandler MD
[2024-04-13 06:27] LABS: Respiratory Syncytial Virus Ag Negative (Negative)
[2024-04-13] MEDS: cefTRIAXone/D5w 1gm IV premix 50 ML IV ×2 (06:44→22:44)
[2024-04-13] MEDS: AZITHROMYCIN INJ 500 MG in SODIUM CHLORIDE 0.9% 250 ML 250 ML 250 MG IV (06:45)
--- NOTE | 2024-04-13 07:10 | EVENTNT_ITS ---
Documentation for date of: 04/13/24 Event Note Event Note: Received a call around 6:04 AM on 04/13 for patient emergency room 9, 84-year-old female with past medical history of hypertension, history of PE not on anticoagulation, overactive bladder presenting with generalized weakness, c hest pain and shortness of breath requiring supplemental oxygenation. ED physician stated that the patient usually uses as needed oxygen; however, has been requiring 2 L in the ED. Of note, the patient presented hypertensive, heart rate of 66, tachypneic but afebrile and satting 97. Pertinent lab and imaging findings included WBC of 10.1, EKG showed normal sinus rhythm with left axis deviation and left bundle branch block which has been previously seen, chest x-ray showed bronchitis pattern but CT of chest abdomen pelvis states multifocal pneumonia along with hiatal hernia and dilated left atrium but with no evidence of PE. CT head was negative for any acute process, but there was noted periventricular chronic small vessel ischemia. Patient was recently seen in the ED for pneumonia and sent home with Augmentin regimen; however, it appears that symptoms have worsened and she failed outpatient therapy. Signed out the patient to the morning hospitalist team. Johnathan Elias, PGY-1
[2024-04-13] MEDS: HEPARIN SOD INJ 5000 UNIT/ML VIAL SC ×2 (08:44→22:44)
[2024-04-13] MEDS: LOSARTAN POTASSIUM 25 MG TABLET 100 MG PO (08:44)
[2024-04-13] MEDS: Magnesium Sulfate 2 GM Ivpb 2 GM/50 ML BAG IV (08:44)
[2024-04-13] MEDS: PANTOPRAZOLE INJ 40 MG VIAL IV (08:44)
--- NOTE | 2024-04-13 10:47 | PC.RT ---
PT WEARS 2LPM HOME O2 WITH CONCENTRATOR. NO CPAP MACHINE AT HOME, CANCELLED PER MD
--- NOTE | 2024-04-13 10:54 | PC.CC ---
Patient is a 84 year-old female who presents to the hospital for Pneumonia. Chanell KEYES made [id number] contact with patient. ASW introduced self, role, and reason for visit. Patient appeared alert and oriented to self, location, and situation. Patient was pleasant and engaged in initial assessment. Patient confirmed information on demographics and reports to living with her son, Lenin Dunbar . Per patient, patient ambulates independently at home but has been struggling and believes she would benefit from a walker. Patient is able to complete her own ADLs. Patient uses oxygen at home. Primary care provider is Jose Padilla and for prescription medication she uses [facility] on [address]. Upon discharge the patient plans on returning back home with her son. nutritional services host to follow up with any discharge needs.
--- NOTE | 2024-04-13 14:00 | ESHP_ITS ---
<Statement entered by Fidencio Benitez MD - 04/13/24 15:27> 84-year-old female with a PMH of hypertension, hyperlipidemia, CHF HFpEF 50 to 55% (01/07/2023), history of PE, GERD, and history of overactive bladder who presented to the emergency room with a chief complaint of cough body chills. she failed out patient antibiotic therapy. admitted for AHRF form CAP for IV antibiotics. I discussed with and supervised my co-resident involved in the care of this patient. I agree with the assessment and plan as documented above. Fidencio Benitez,PGY-3 Disclaimer: Despite multiple revisions, due to the dictation software being used, the document below may not be free of grammatical errors including phonetic/typographic errors. However, this does not deter from our commitment to providing health care in the patient's best interest in mind. Documentation for date of: 04/13/24 HPI History of Present Illness History of present illness: CC: cough Patient is a 84-year-old female with a past medical history of hypertension, hyperlipidemia, CHF HFpEF 50 to 55% (01/07/2023), history of PE, GERD, and history of overactive bladder who presented to the emergency room with a chief complaint of cough body chills. Patient stated symptoms began about 1 week ago. Sick contact within the last week was near her grandchild who had a respiratory illness and also presented with a cough. Patient also stated increased congestion. Dry cough. Increased headache, denied migraine history. Pleuritic chest pain worse with deep inspiration. Patient denied hemoptysis or hematemesis. Patient stated she uses oxygen at home to help her breathe at night possible nasal cannula versus CPAP machine. Patient denied history of COPD. Patient never smoked. Patient denied weight change?weight loss. Admitted on 04/13/2024 for acute hypoxic respiratory failure secondary to community acquired pneumonia. ER Course: Vitals: BP 188/97, HR 66, RR 20, SpO2 97 on room air WBC 10.1 CMP (04/12/2024) NA 142, K4.1 BUN 13, creatinine 0.8, GFR 60, 10.6 (H), magnesium 1.6 troponins 0.002, BNP 119 EKG: Sinus rhythm, left bundle branch block UA negative D-dimer 2310 Chest x-ray: Bronchitis pattern, minor prominence of left ventricle, osteopenia CTA chest (04/12/2024): Negative PE. Patchy areas of bilateral pneumonia. Mild cystic pattern. Head CT (04/12/2024): Negative for acute hemorrhage, mass effect or midline shift PMH: -HTN -HLD -CHF HFpEF 50-55% -GERD -hx of PE -overactive bladder Past Surgical History: -Hysterectomy -Umbilical Herniai Home Medication: Losartan 100 mg Qday Olmesartan-HCTZ Pravastatin 20 mg HS Metoprolol 25 mg Qday Social History: Never smoked Denied Illicit drug use Denied alcohol Allergies: None Code Status: Full Code Review of Systems Review of Systems Narrative Review of Systems: General appearance: NO weight change, YES fatigue, NO weakness, NO fever, YES chills, NO night sweats, YES cough Skin: NO rash, NO itching, NO sores, NO moles HEENT: NO Trauma, NO nausea, NO vomiting, NO visual changes, NO blurry vision, NO double vision, NO tinnitus, NO vertigo, NO ear discharge, NO rhinorrhea, NO stuffiness, NO sneezing, NO allergy, NO epistaxis. NO Hoarseness, NO sore throat, NO swollen neck. Cardiac: NO Palpitations, NO dyspnea on exertion, NO orthopnea, NO paroxysmal nocturnal dyspnea, NO edema Respiratory: YES Shortness of Breath, NO Wheezing, YES Cough, NO Sputum, NO h emoptysis GI:NO appetite, NO nausea, NO vomiting, NO dysphagia, NO changes in bowel frequency, NO stool color, NO diarrhea, NO constipation, NO hemetemesis, NO hemorrhoids, NO melena, NO hematechezia, NO abdominal pain, NO jaundice Renal: NO frequency, NO hesitancy, NO urgency, NO hematuria, NO nocturia, NO incontinence MSK: NO muscle weakness, NO gout, NO arthritis, NO muscle stiffness Neuro: NO headaches, NO tremors, NO weakness, NO paralysis, NO seizures, NO loss of consciousness, NO numbness. Hem: NO anemia, NO easy bruising/bleeding, NO petechiae, NO purpura Endo: NO heat/cold intolerance, NO excessive sweating, NO polyuria, NO polydipsia, NO polyphagia, NO thyroid problems, NO diabetes Pysch: NO mood, NO anxiety, NO depression Exam Vital Signs Temp Pulse Resp BP Pulse Ox O2 Del Method O2 Flow Rate 98.0 F 72 18 136/84 H 93 L Nasal Cannula 2 04/13/24 12:00 04/13/24 12:00 04/13/24 12:00 04/13/24 12:00 04/13/24 12:00 04/13/24 12:00 04/13/24 12:00 Narrative Exam General Appearance: Alert & Oriented X3, well-nourished female who is lying in bed in mild discomfort with increased work of breathing HEENT: Skull symmetrical and atraumatic. Conjunctivae pin and moist. Pupils equal, round, reactive to light and accommodation (PERRL). External ear without lesion or discharge. Straight, nares patient, mucosa pink, no discharge. Cardio: Normal Rate and Rhythm with S1 and S2 heart sounds. No murmurs or extra heart sounds auscultated. No bruits on carotid auscultation. No peripheral edema or cyanosis. Lungs: Symmetric with good expansion. Chest and back non-tender. Decreased vesicular breath sounds without crackles, wheezing or rhonchi Abdomen: Non-tender, Non-distended, Normal Reactive Bowel Sounds Neuro: Alert, cooperative, oriented to person, place, and time. Speech clear. CN grossly intact. Upper motor strength 5/5 and Lower motor strength 5/5. Sensation intact. Results: Labs 04/14/24 04:45 04/14/24 04:45 Labs: Short CBC 04/12/24 04/12/24 Range/Units 21:35 22:57 WBC 10.4 10.1 (3.6-11.0) Thou/mm3 Hgb 12.1 12.3 (12.0-16.0) g/dL Hct 36.5 37.2 (36.0-46.0) % Plt Count 259 273 (140-440) Thou/mm3 BMP 04/12/24 04/12/24 21:35 22:57 Sodium 141 142 Potassium 4.1 4.1 Chloride 109 H 108 H Carbon Dioxide 23.3 25.7 BUN 13 13 Creatinine 0.7 0.8 Glucose 103 101 Calcium 10.4 10.6 Cardiac Enzymes 04/12/24 04/12/24 Range/Units 21:35 22:57 Troponin I < 0.020 < 0.020 (0.0-0.045) ng/mL Liver Function 04/12/24 04/12/24 Range/Units 21:35 22:57 Total Bilirubin 0.4 0.4 (0.3-1.2) mg/dL AST 21 23 (0-34) U/L ALT 11 10 (10-49) U/L Alkaline Phosphatase 111 111 (46-116) U/L Albumin 4.1 4.4 (3.4-4.8) gm/dL Quality Measures Quality Measures none Advance care planning discussed with:: patient Medications Home Medications and Allergies Home Medications ?Medication ?Instructions ?Recorded ?Confirmed ?Type losartan 100 mg tablet 100 mg PO QDAY 01/12/23 04/13/24 History dorzolamide 22.3 mg-timolol 6.8 1 drp ophthalmic (eye) BID 04/13/24 04/13/24 History mg/mL eye drops olmesartan 20 1 tab PO QDAY 04/13/24 04/13/24 History mg-hydrochlorothiazide 12.5 mg tablet pravastatin 20 mg tablet 20 mg PO QDAY 04/13/24 04/13/24 History travoprost 0.004 % eye drops 1 drp ophthalmic (eye) QPM 04/13/24 04/13/24 History Allergies Allergy/AdvReac Type Severity Reaction Status Date / Time No Known Allergies Allergy Unverified 04/06/18 11:38 Visit Medications Acetaminophen (Acetaminophen 325 Mg Tablet) 650 mg PO Q6H PRN PRN Reason: Mild Pain 1-3 or Fever >100.4 Stop: 05/13/24 07:55 Albuterol/Ipratropium (Albuterol/Ipratropium (Duoneb) Rt Tari 3 Ml Nebu) 3 ml INH Q4HRRT LORAINE Stop: 05/13/24 10:59 Last Admin: 04/13/24 10:45 Dose: 3 ml Heparin Sodium (Porcine) (Heparin Sod Inj 5000 Unit/Ml Vial) 5,000 unit SC Q12HR LORAINE Stop: 04/27/24 08:59 Last Admin: 04/13/24 08:44 Dose: 5,000 unit Ceftriaxone Sodium/Dextrose (Rocephin/D5w 1gm Iv Premix) 50 mls @ 100 mls/hr IV 2100 LORAINE Stop: 04/20/24 20:59 Azithromycin 500 mg/ Sodium (Chloride) 250 mls @ 250 mls/hr IV X1 ONE Stop: 04/14/24 09:59 Losartan Potassium (Losartan Potassium 25 Mg Tablet) 100 mg PO QDAY [facility] Stop: 05/13/24 08:59 Last Admin: 04/13/24 08:44 Dose: 100 mg Pantoprazole Sodium (Pantoprazole Inj 40 Mg Vial) 40 mg IV QDAY [facility] Stop: 05/13/24 08:59 Last Admin: 04/13/24 08:44 Dose: 40 mg Discontinued Medications Acetaminophen/Codeine Phosphate (Acetaminophen W/Cod 300-30 Tablet) 2 tab PO X1 ONE Stop: 04/12/24 23:57 Last Admin: 04/13/24 01:07 Dose: 2 tab Albuterol/Ipratropium (Albuterol/Ipratropium (Duoneb) Rt Tari 3 Ml Nebu) 3 ml INH X1 ONE Stop: 04/12/24 23:57 Last Admin: 04/13/24 00:42 Dose: 3 ml Azithromycin 500 mg/ Sodium (Chloride) 250 mls @ 250 mls/hr IV X1 ONE Stop: 04/13/24 07:07 Last Infusion: 04/13/24 08:02 Dose: Infused Ceftriaxone Sodium/Dextrose (Rocephin/D5w 1gm Iv Premix) 50 mls @ 100 mls/hr IV X1 ONE Stop: 04/13/24 06:37 Last Infusion: 04/13/24 08:02 Dose: Infused Magnesium Sulfate (Magnesium Sulfate Ivpb) 2 gm in 50 mls @ 25 mls/hr IV X1 ONE Stop: 04/13/24 10:02 Last Infusion: 04/13/24 11:00 Dose: Infused Azithromycin 500 mg/ Sodium (Chloride) 250 mls @ 250 mls/hr IV X1 ONE Stop: 04/13/24 13:59 Methylprednisolone Sodium Succinate (Methylprednisolone Sod Succ 62.5 Mg/Ml 2ml Vial) 125 mg IVP X1 ONE Stop: 04/12/24 23:57 Last Admin: 04/13/24 01:08 Dose: 125 mg Ondansetron HCl (Ondansetron Odt 4 Mg Tabrap) 4 mg PO X1 ONE; Protocol Stop: 04/12/24 22:45 Last Admin: 04/13/24 01:08 Dose: 4 mg Sodium Chloride (Sodium Chloride Rt 10% 15 Ml Nebu) 5 ml INH X1 ONE Stop: 04/13/24 07:57 Assessment & Plan Plan Patient is a 84-year-old female with a past medical history of hypertension, hyperlipidemia, CHF HFpEF 50 to 55% (01/07/2023), history of PE, GERD, and history of overactive bladder who was admitted for acute hypoxic respiratory failure secondary to community acquired pneumonia. #Acute Hypoxic respiratory failure #Community Acquired Pneumonia Etiology: given history of recent sick contact, postviral bacterial pneumonia can ont be ruled out such as GPC. DDx: Cocci vs PE, less likely given negative CTA chest Diagnostics: Chest x-ray: Bronchitis pattern, minor prominence of left ventricle, osteopenia CTA chest (04/12/2024): Negative PE. Patchy areas of bilateral pneumonia. Mild cystic pattern. D-dimer 2310 WBC 10.1 flu Negative COVID Negative RSV Negative Plan Ceftriaxone 1 gm (04/13/2024---) Azithromycin 500 mg (04/13--) Duonebs Loraine Q4 HR Acetaminophen Mild pain & fever Guaifenesin Syrup PRN Sptutum Culture-pending Blood Culture-pending UA Pending Cocci-Pending MRSA Pending PT and Respiratory #Hypternsive Urgency, Resolved #Hyptersion Patient has a past medical history of hypertension and presented with hypertensive urgency with a systolic blood pressure greater than 180. Patient on 2 antihypertensive medications stated she was taking losartan and olmesartan hydrochlorothiazide 20-12.5. Patient is not sure if she is taking metoprolol. Contacted daughter and asked to bring a full list of all medications. Contacted patient's daughter and asked to bring a full list of all medications. Plan -Pending medication reconciliation -Losartan 100 mg Qday -Monitor Blood pressure -Orthostatic Vitals x1 #CHF, HFpEF 50-55% #Chronic Congestive Heart Failure Past medical congestive heart failure with preserved ejection fraction of 50 to 55% as seen on previous EKG in December 2022. Previous hospitalization patient was discharged on Lasix. Patient denied Lasix use. No pedal edema noted on physical exam troponins negative and BNP only mildly elevated at 119. Patient might be taking metoprolol. May work towards GDMT. Diagnostics: BNP 119 Troponins less than 0.02 Echo (01/12/2023): Dyskinetic mid-spetal wall motion. EF 50-55%. 30 mmHg Right ventricular systolic pressure. Mild AV sclerosis NYHA Class: I Plan: -Lipid Panel -Magnesium (3) AM -Phosphorus (1) AM -K>4 and Mg >2 -May work towards GDMT -Fluid Restriction and Sodium Restriction 2 g per day -SpO <90%, support PRN -Daily Weights, Strict Ins and Outs, Fluid Striction (2,000), Sodium Restriction 2 grams per day -Cardiology Consult, appreciate recommendations. #Hyperlipedimia Patient has a past medical history of hyperlipidemia Diagnostics: (12/09/2018): Cholesterol 191, LDL 125, HDL 46, ASCVD-->does not qualify based on age #Thyroid Nodule CTA Chest Abdomen/Chest: Right thyromegaly with 13 mm right thyroid nodule Plan: -recommend thyroid sonography follow-up -TSH #Kidney Lesion CTA Abdomen/Chest: 8mm cystic lesion above the left kidney Plan -recommend abdominal sonography follow-up outpatient #Hypercalcemia Hypercalcemia likely secondary to decreased fluid, patient stated she has decreased appetite and has reduced her fluid intake. Given pneumonia-malignancy cannot be ruled out versus endocrine dysfunction as enlarged thyroid was noted on on CT a chest and abdomen. Plan -No acute intervention, consider PTH Health Maintenance: Disp: Pt is currently admitted to floors for further management of community acquired pneumonia , awaiting sputum culture FEN: cardiac, 2 g sodium restrictions DVT: on subQ heparin GI: Prtonix, history of GERD Code: Full Code - The patient's plan was discussed with attending Dr. Hawley and senior residents Dr. Mikhail Lane MD PGY1 Internal Medicine Attending Provider Attestation/Addendum I, Moon Hawley DO, attest that I was physically present for the jack portions of the service and evaluated the patient with the resident and I reviewed and discussed the case with the resident and agree with the resident's findings and plans of care as documented above Patient is an 84-year-old female with history of hypertension, hyperlipidemia, HFpEF with an EF of 50 to 55%, PE, GERD who was brought to the ED with complaint of productive cough, generalized weakness and chills. Symptoms began a week ago. She states that her grandchildren were sick. Patient was recently seen in the ED and was given Augmentin, with no resolution of her symptoms. She reports pain with deep inspiration. In the ED, patient was noted to be hypertensive and afebrile. D-dimer was initially elevated at 2310, but CTA ruled out any evidence of pulmonary emboli. She is noted to have patchy areas of bilateral pneumonia. Patient received steroids in the ED, azithromycin and Rocephin. Will admit to med/telemetry for further workup and medical management of a typical versus gram-negative delfino pneumonia patient failed outpatient therapy.. Will continue IV antibiotics at this time and monitor respiratory status
--- NOTE | 2024-04-13 14:37 | PC.RT ---
SPUTUM SAMPLE COLLECTED AND SENT TO LAB
[2024-04-14] VITALS (17 sets, daily range): BP systolic 100–137; BP diastolic 54–76; PULSE 7–90; RESP 14–24; TEMP 36.2–36.8; O2SAT 93–100; BMI 29.0
[2024-04-14] MEDS: ALBUTEROL/IPRATROPIUM (Duoneb) RT SOL 3 ML NEBU INH ×6 (03:56→23:35)
[2024-04-14 06:00] LABS: Basophils % (Auto) 0 % (0-2.5); Eosinophils % (Auto) 0 % (0-10); Hematocrit 32.4 % (36.0-46.0); Hemoglobin 10.7 g/dL (12.0-16.0); Immature Granulocytes % (Auto) 1 % (0-0); Immature Granulocytes Auto 0.13 Thou/mm3 (0.00-0.00); Lymphocytes # (Auto) 2.7 Thou/mm3 (1.0-4.8); Lymphocytes % (Auto) 16 % (10-50); Mean Corpuscular Hemoglobin 30.9 pg (25.0-35.0); Mean Corpuscular Volume 94 fL (80-100); Monocytes # (Auto) 0.6 Thou/mm3 (0.0-0.8); Monocytes % (Auto) 3 % (0-12); Neutrophils # (Auto) 13.8 Thou/mm3 (1.8-7.7); Neutrophils % (Auto) 80 % (37-80); Nucleated Red Blood Cell % 0 /100 WBC (0); Platelet Count 256 Thou/mm3 (140-440); RDW Standard Deviation 46.3 fL (36.4-46.3); Red Blood Count 3.46 Miln/mm3 (4.00-5.20); White Blood Count 17.2 Thou/mm3 (3.6-11.0)
--- NOTE | 2024-04-14 06:10 | PC.NURSE ---
Pt O2 was desating to 86-87 call the RT , Rt give pt breathing Tx and Oc at 3 l NC saturation 93% will continue monitor PT.
[2024-04-14 06:58] LABS: Alanine Aminotransferase < 7 U/L (10-49); Albumin/Globulin Ratio 1.5 (1.2-2.2); Alkaline Phosphatase 97 U/L (46-116); Anion Gap 5 (7-16); Aspartate Amino Transferase 14 U/L (0-34); BUN/Creatinine Ratio 26 Ratio (12-20); Bilirubin,Total 0.3 mg/dL (0.3-1.2); Blood Urea Nitrogen 23 mg/dL (9-23); Calcium 9.9 mg/dL (8.3-10.6); Calcium (Corrected) 9.9 mg/dL (8.5-10.1); Carbon Dioxide 25.1 mMol/L (20.0-31.0); Cardiac Risk Estimate 3.7 RATIO (3.7-5.6); Chloride 105 mMol/L (98-107); Cholesterol 168 mg/dL (132-200); Creatinine (Component) 0.9 mg/dL (0.6-1.3); Estimated Creatinine Clearance 48.4 mL/min (>60); Globulin 2.6 gm/dL (2.3-3.5); Glucose 124 mg/dL (74-106); HDL Cholesterol 45 mg/dL (40-60); LDL Cholesterol,Calculated 106 mg/dL (0-130); Magnesium 2.1 mg/dL (1.6-2.6); Osmolality,Calculated 274 (275-295); Phosphorous 3.8 mg/dL (2.4-5.1); Potassium 4.3 mMol/L (3.4-5.1); Sodium 135 mMol/L (136-145); Thyroid Stimulating Hormone 0.31 uIU/mL (0.55-4.78); Total Protein 6.6 gm/dL (5.7-8.2); Triglycerides 85 mg/dL (30-150); eGFR > 60 See Note
[2024-04-14] MEDS: LOSARTAN POTASSIUM 25 MG TABLET 100 MG PO (09:55)
[2024-04-14] MEDS: HEPARIN SOD INJ 5000 UNIT/ML VIAL SC ×2 (10:02→20:37)
[2024-04-14] MEDS: PANTOPRAZOLE INJ 40 MG VIAL IV (10:02)
[2024-04-14] MEDS: AZITHROMYCIN INJ 500 MG in SODIUM CHLORIDE 0.9% 250 ML 250 ML 250 MG IV (10:26)
--- NOTE | 2024-04-14 13:39 | ESPR_ITS ---
<Statement entered by Fidencio Benitez MD - 04/14/24 14:59> Patient was examined bedside this morning, she is saturating well on 2 L of oxygen via nasal cannula we will continue to wean off her oxygen. Pending blood cultures. Continue same treatment. Anticipate discharge in next 24 to 48 hours. I discussed with and supervised my co-resident involved in the care of this patient. I agree with the assessment and plan as documented above. Fidencio Benitez,PGY-3 Disclaimer: Despite multiple revisions, due to the dictation software being used, the document below may not be free of grammatical errors including phonetic/typographic errors. However, this does not deter from our commitment to providing health care in the patient's best interest in mind. Documentation for date of: 04/14/24 Subjective Subjective Interval history: Patient is a 84-year-old female with a past medical history of hypertension, hyperlipidemia, CHF HFpEF 50 to 55% (01/07/2023), history of PE, GERD, and history of overactive bladder who was admditted for acute hypoxic respiratory failure secondary to acquired pneumonia. No overnight events reported for patient. Patient denied pyrexia, denied chills, and improved dyspnea only requiring 1 liter of oxygen. Pending PT. Patient CPAP at home but respiratory request she bring CPAP from home. Elevated WBC, likely secondary to steriods. Exam Vital Signs Temp Pulse Resp BP Pulse Ox O2 Del Method O2 Flow Rate 97.2 F 80 19 137/73 H 97 Nasal Cannula 1 04/14/24 11:57 04/14/24 11:57 04/14/24 11:57 04/14/24 11:57 04/14/24 11:57 04/14/24 11:57 04/14/24 11:57 Narrative Exam General Appearance: Alert & Oriented X3, well-nourished female who is lying in bed in no acute distress HEENT: Skull symmetrical and atraumatic. Conjunctivae pin and moist. Pupils equal, round, reactive to light and accommodation (PERRL). External ear without lesion or discharge. Straight, nares patient, mucosa pink, no discharge. Cardio: Normal Rate and Rhythm with S1 and S2 heart sounds. No murmurs or extra heart sounds auscultated. No bruits on carotid auscultation. No peripheral edema or cyanosis. Lungs: Symmetric with good expansion. Chest and back non-tender. Breath sounds vesicular without crackles, wheezing or rhonchi Abdomen: Non-tender, Non-distended, Normal Reactive Bowel Sounds Neuro: Alert, cooperative, oriented to person, place, and time. Speech clear. CN grossly intact. Upper motor strength 5/5 and Lower motor strength 5/5. Sensation intact. Objective Labs 04/15/24 04:52 04/15/24 04:52 Labs: Laboratory Results - last 24 hr 04/14/24 04:45 WBC 17.2 H D RBC 3.46 L Hgb 10.7 L Hct 32.4 L MCV 94 MCH 30.9 MCHC 33.0 RDW Std Deviation 46.3 Plt Count 256 Neut % (Auto) 80 Lymph % (Auto) 16 [place] % (Auto) 3 Eos % (Auto) 0 Baso % (Auto) 0 Neut # (Auto) 13.8 H Lymph # (Auto) 2.7 [place] # (Auto) 0.6 Eos # (Auto) 0.0 Baso # (Auto) 0.0 Immature Gran # (Auto) 0.13 H Absolute Nucleated RBC 0.00 Immature Gran % 1 H Nucleated RBC % 0 Sodium 135 L Potassium 4.3 Chloride 105 Carbon Dioxide 25.1 Anion Gap 5 L BUN 23 Creatinine 0.9 Estim Creat Clear Calc 48.4 L eGFR > 60 BUN/Creatinine Ratio 26 H Glucose 124 H Calculated Osmolality 274 L Calcium 9.9 Corrected Calcium 9.9 Phosphorus 3.8 Magnesium 2.1 Total Bilirubin 0.3 AST 14 ALT < 7 L Alkaline Phosphatase 97 Total Protein 6.6 Albumin 4.0 Globulin 2.6 Albumin/Globulin Ratio 1.5 Triglycerides 85 Cholesterol 168 LDL Cholesterol, Calc 106 HDL Cholesterol 45 Cholesterol/HDL Ratio 3.7 TSH 0.31 L Quality Measures Quality Measures none Advance care planning discussed with:: patient Assessment & Plan Assessment Current Active Medications: Generic Name Dose Route Start Last Admin Trade Name Freq PRN Reason Stop Dose Admin Acetaminophen 650 mg 04/13/24 07:56 Acetaminophen 325 Mg Tablet PO 05/13/24 07:55 Q6H PRN Mild Pain 1-3 or Fever >100.4 Albuterol/Ipratropium 3 ml 04/13/24 11:00 04/14/24 11:50 Albuterol/Ipratropium (Duoneb) Rt Tari 3 Ml Nebu INH 05/13/24 10:59 3 ml Q4HRRT LORAINE Administration Guaifenesin 100 mg 04/13/24 15:24 Guaifenesin Syrup 200 Mg/10 Ml Udc PO 05/13/24 15:23 QID PRN COUGH Protocol Heparin Sodium (Porcine) 5,000 unit 04/13/24 09:00 04/14/24 10:02 Heparin Sod Inj 5000 Unit/Ml Vial SC 04/27/24 08:59 5,000 unit Q12HR LORAINE Administration Ceftriaxone Sodium/Dextrose 50 mls @ 100 mls/hr 04/13/24 21:00 04/13/24 22:44 Rocephin/D5w 1gm Iv Premix IV 04/20/24 20:59 100 mls/hr 2100 LORAINE Administration Losartan Potassium 100 mg 04/13/24 09:00 04/14/24 09:55 Losartan Potassium 25 Mg Tablet PO 05/13/24 08:59 100 mg QDAY LORAINE Administration Pantoprazole Sodium 40 mg 04/13/24 09:00 04/14/24 10:02 Pantoprazole Inj 40 Mg Vial IV 05/13/24 08:59 40 mg QDAY LORAINE Administration Plan Patient is a 84-year-old female with a past medical history of hypertension, hyperlipidemia, CHF HFpEF 50 to 55% (01/07/2023), history of PE, GERD, and history of overactive bladder who was admitted for acute hypoxic respiratory failure secondary to community acquired pneumonia. #Acute Hypoxic respiratory failure #Community Acquired Pneumonia #Leukocytosis Etiology: given history of recent sick contact, postviral bacterial pneumonia can ont be ruled out such as GPC. Leukocytosis likely secondary to steroid use in ER. DDx: Cocci vs PE, less likely given negative CTA chest Diagnostics: Chest x-ray: Bronchitis pattern, minor prominence of left ventricle, osteopenia CTA chest (04/12/2024): Negative PE. Patchy areas of bilateral pneumonia. Mild cystic pattern. D-dimer 2310 WBC 10.1-->(04/14/2024) 17.1 flu Negative COVID Negative RSV Negative UA negative Plan Ceftriaxone 1 gm (04/13/2024---) Azithromycin 500 mg (04/13--) Duonebs Loraine Q4 HR Acetaminophen Mild pain & fever Guaifenesin Syrup PRN Gram Stain Sputum: NO WBC, No organisms Sputum Culture: pending Blood Culture-negative 24 hours Cocci-Pending MRSA Pending PT and Respiratory #Hypternsive Urgency, Resolved #Hyptersion Patient has a past medical history of hypertension and presented with hypertensive urgency with a systolic blood pressure greater than 180. Patient on 2 antihypertensive medications stated she was taking losartan and olmesartan hydrochlorothiazide 20-12.5. Patient is not sure if she is taking metoprolol. Contacted daughter and asked to bring a full list of all medications. Contacted patient's daughter and asked to bring a full list of all medications. Plan -Pending medication reconciliation -Losartan 100 mg Qday -Monitor Blood pressure -D/C olmesartan given losartan already on board #CHF, HFpEF 50-55% #Chronic Congestive Heart Failure Past medical congestive heart failure with preserved ejection fraction of 50 to 55% as seen on previous EKG in December 2022. Previous hospitalization patient was discharged on Lasix. Patient denied Lasix use. No pedal edema noted on physical exam troponins negative and BNP only mildly elevated at 119. Patient might be taking metoprolol. May work towards GDMT. Diagnostics: BNP 119 Troponins less than 0.02 Echo (01/12/2023): Dyskinetic mid-spetal wall motion. EF 50-55%. 30 mmHg Right ventricular systolic pressure. Mild AV sclerosis NYHA Class: I Plan: -Magnesium (3) AM -K>4 and Mg >2 -May work towards GDMT, less likely given patient is only HFpEF-avoid polypharmacy given patient's age -Fluid Restriction and Sodium Restriction 2 g per day -SpO <90%, support PRN -Daily Weights, Strict Ins and Outs, Fluid Striction (2,000), Sodium Restriction 2 grams per day -Cardiology Consult, appreciate recommendations. #Hyperlipedimia Patient has a past medical history of hyperlipidemia. Home medication is pravastatin 20 mg HS Diagnostics: (12/09/2018): Cholesterol 191, LDL 125, HDL 46, (04/14/2024) Lipid Panel: Triglycerides 85, Cholesterol 168, LDL 106, HDL 45 ASCVD-->does not qualify based on age Plan: -Atorvastatin 20 mg HS #Thyroid Nodule CTA Chest Abdomen/Chest: Right thyromegaly with 13 mm right thyroid nodule Diagnostics: (04/14/2024): TSH 0.31 and Free T4 1.28 Plan: -recommend thyroid sonography follow-up -consider antibodies as outpatient #Kidney Lesion CTA Abdomen/Chest: 8mm cystic lesion above the left kidney Plan -recommend abdominal sonography follow-up outpatient #Hypercalcemia, Resolved. Hypercalcemia likely secondary to decreased fluid, patient stated she has decreased appetite and has reduced her fluid intake. Given pneumonia-malignancy cannot be ruled out versus endocrine dysfunction as enlarged thyroid was noted on on CT a chest and abdomen. Plan -No acute intervention Health Maintenance: Disp: Pt is currently admitted to floors for further management of community acquired pneumonia , awaiting sputum culture FEN: cardiac, 2 g sodium restrictions DVT: on subQ heparin GI: Prtonix, history of GERD Code: Full Code - The patient's plan was discussed with attending Dr. Hawley and senior residents Dr. Mikhail Lane MD PGY1 Internal Medicine Attending Provider Attestation/Addendum Nighat, Moon Hawley, , attest that I was physically present for the jack portions of the service and evaluated the patient with the resident and I reviewed and discussed the case with the resident and agree with the resident's findings and plans of care as documented above Patient seen and evaluated this a.m. Patient states that she is feeling improved today she remains on 1 L nasal cannula. Will have patient work with physical therapy today white blood cells are elevated likely secondary to steroids given in the ER. Continue with IV antibiotics. Anticipate discharge within the next 24 hours.
--- NOTE | 2024-04-14 14:26 | PC.PT ---
PT eval only, Patient is I with transfers and ambulation with AD. Patient can safely ambulate inside the room without AD.
[2024-04-14 15:17] LABS: Free T4 (Free Thyroxine) 1.28 ng/dL (0.89-1.76)
[2024-04-14 16:10] LABS: Collection Type, Urine Clean Catch
[2024-04-14 16:10] LABS: Collection Type, Urine Clean Catch; WBC,Urine 0 /hpf (0-5)
[2024-04-14 16:13] LABS: Bilirubin,Urine Negative (Negative); Blood,Urine Negative (Negative); Clarity,Urine Clear (Clear/Hazy); Color,Urine Lt-Yellow (Lt Yel-Yel); Glucose, Urine Negative (Negative); Hyaline Casts,Urine < 1 /hpf (0-1); Ketones,Urine Negative (Negative); Leukocyte Esterase,Urine Negative (Negative); Nitrite,Urine Negative (Negative); PH,Urine 5.5 (5.0-7.0); Protein,Urine Negative (Neg - Trace); RBC,Urine < 1 /hpf (0-3); Squamous Epithelial Cell,Urine 1 /hpf (0-5); Urobilinogen,Urine Negative mg/dL (0.0-1.0)
[2024-04-14 17:12] LABS: Bilirubin,Urine Negative (Negative); Blood,Urine Negative (Negative); Clarity,Urine Clear (Clear/Hazy); Color,Urine Lt-Yellow (Lt Yel-Yel); Culture Indicated,Urine Not Indicated; Glucose, Urine Negative (Negative); Ketones,Urine Negative (Negative); Leukocyte Esterase,Urine Negative (Negative); Nitrite,Urine Negative (Negative); PH,Urine 5.5 (5.0-7.0); Protein,Urine Negative (Neg - Trace); RBC,Urine < 1 /hpf (0-3); Squamous Epithelial Cell,Urine < 1 /hpf (0-5); Urobilinogen,Urine Negative mg/dL (0.0-1.0); WBC,Urine < 1 /hpf (0-5)
[2024-04-14] MEDS: ATORVASTATIN CALCIUM 20 MG TABLET PO (20:37)
[2024-04-14] MEDS: cefTRIAXone/D5w 1gm IV premix 50 ML IV (20:37)
[2024-04-15] VITALS (16 sets, daily range): BP systolic 92–136; BP diastolic 56–72; PULSE 61–85; RESP 16–20; TEMP 35.9–36.4; O2SAT 87–100
[2024-04-15] MEDS: ALBUTEROL/IPRATROPIUM (Duoneb) RT SOL 3 ML NEBU INH ×5 (03:37→23:46)
[2024-04-15 07:04] LABS: Alanine Aminotransferase 9 U/L (10-49); Albumin, Serum 3.7 gm/dL (3.4-4.8); Albumin/Globulin Ratio 1.6 (1.2-2.2); Alkaline Phosphatase 77 U/L (46-116); Anion Gap 4 (7-16); Aspartate Amino Transferase 12 U/L (0-34); BUN/Creatinine Ratio 33 Ratio (12-20); Bilirubin,Total 0.3 mg/dL (0.3-1.2); Blood Urea Nitrogen 26 mg/dL (9-23); Calcium 9.6 mg/dL (8.3-10.6); Calcium (Corrected) 9.8 mg/dL (8.5-10.1); Carbon Dioxide 25.5 mMol/L (20.0-31.0); Chloride 109 mMol/L (98-107); Creatinine (Component) 0.8 mg/dL (0.6-1.3); Estimated Creatinine Clearance 53.3 mL/min (>60); Globulin 2.3 gm/dL (2.3-3.5); Glucose 96 mg/dL (74-106); Magnesium 1.9 mg/dL (1.6-2.6); Osmolality,Calculated 280 (275-295); Potassium 3.9 mMol/L (3.4-5.1); Sodium 138 mMol/L (136-145); eGFR > 60 See Note
[2024-04-15 07:17] LABS: Basophils % (Auto) 0 % (0-2.5); Eosinophils # (Auto) 0.1 Thou/mm3 (0.0-0.5); Eosinophils % (Auto) 1 % (0-10); Hematocrit 31.7 % (36.0-46.0); Hemoglobin 9.9 g/dL (12.0-16.0); Immature Granulocytes % (Auto) 1 % (0-0); Immature Granulocytes Auto 0.08 Thou/mm3 (0.00-0.00); Lymphocytes % (Auto) 37 % (10-50); Mean Corpuscular HGB Conc 31.2 g/dl (31.0-37.0); Mean Corpuscular Hemoglobin 30.1 pg (25.0-35.0); Mean Corpuscular Volume 96 fL (80-100); Monocytes # (Auto) 0.7 Thou/mm3 (0.0-0.8); Monocytes % (Auto) 6 % (0-12); Neutrophils # (Auto) 5.8 Thou/mm3 (1.8-7.7); Neutrophils % (Auto) 55 % (37-80); Nucleated Red Blood Cell % 0 /100 WBC (0); Platelet Count 238 Thou/mm3 (140-440); RDW Standard Deviation 50.4 fL (36.4-46.3); Red Blood Count 3.29 Miln/mm3 (4.00-5.20); White Blood Count 10.7 Thou/mm3 (3.6-11.0)
[2024-04-15] MEDS: AZITHROMYCIN 250 MG TABLET 500 MG PO (10:01)
[2024-04-15] MEDS: HEPARIN SOD INJ 5000 UNIT/ML VIAL SC ×2 (10:01→20:39)
[2024-04-15] MEDS: POTASSIUM CHLORIDE 10% 20 MEQ/15 ML UDC GT (10:01)
[2024-04-15] MEDS: LOSARTAN POTASSIUM 25 MG TABLET 100 MG PO (10:01)
[2024-04-15] MEDS: PANTOPRAZOLE INJ 40 MG VIAL IV (10:02)
--- NOTE | 2024-04-15 10:36 | PC.SS ---
SS follow up note; Patient will possibly Discharge home today.
--- NOTE | 2024-04-15 13:32 | ESDS_ITS ---
<Statement entered by Moon Hawley DO - 04/15/24 14:36> I, Moon Hawley DO, attest that I was physically present for the jack portions of the service and evaluated the patient with the resident and I reviewed and discussed the case with the resident and agree with the resident's findings and plans of care as documented above <Statement entered by Florentin Delgado MD - 04/15/24 14:31> I saw and examined the patient, and I agree with current management stated by Dr Domingo MD,PGY1. Plan of care was discussed with the attending physician and resident physician. Disclaimer: Despite multiple revisions, due to the dictation software being used, the document bellow may not be free of grammatical errors including phonetic/typographic errors. However, this does not deter from our commitment to providing health care in the patient's best interest in mind. Dr. Danny MD, PGY 2 Planned Discharge Date 04/15/24 DS: Providers Provider Date of admission: 04/13/24 07:56 Primary care physician: Physician No Primary/Family Admitting Provider: Moon Hawley DO Attending Provider on Admission: Moon Hawley DO Consults: 04/13/24 08:08 Referral Physical Therapy Routine Comment: Physician Instructions: Referral Respiratory Therapy Routine Comment: Instructions: Patient may be using Cpap at home 04/13/24 20:47 Referral Registered Dietitian Routine Comment: 04/13/24 23:40 Referral Stewart Routine Comment: Attending Provider on DC: Moon Hawley DO Discharging Provider: Moon Hawley DO DS: Diagnosis Problem List Completed Was Problem List Reviewed/Reconciled?: Yes Hospital Course Hospital Course Hospital course: Summary: Patient is a 84-year-old female with a past medical history of hypertension, hyperlipidemia, CHF HFpEF 50 to 55% (01/07/2023), history of PE, GERD, and history of overactive bladder who was admitted on 04/13/2024 for acute hypoxic respiratory failure secondary to community acquired pneumonia. ER Course: Vitals: BP 188/97, HR 66, RR 20, SpO2 97 on room air WBC 10.1 CMP (04/12/2024) NA 142, K4.1 BUN 13, creatinine 0.8, GFR 60, 10.6 (H), magnesium 1.6 troponins 0.002, BNP 119 EKG: Sinus rhythm, left bundle branch block UA negative D-dimer 2310 Chest x-ray: Bronchitis pattern, minor prominence of left ventricle, osteopenia CTA chest (04/12/2024): Negative PE. Patchy areas of bilateral pneumonia. Mild cystic pattern. Head CT (04/12/2024): Negative for acute hemorrhage, mass effect or midline shift Hospital Course: Patient was admitted for acute hypoxic respiratory failure requiring nasal cannula 3 to 4 L/min. Patient had negative COVID and influenza A and B negative. Patient's sputum culture showed no growth. Stain only epithelial cells. Blood culture negative after 48 hours. Patient was treated with DuoNebs scheduled, ceftriaxone and azithromycin. MRSA negative. Patient was started on home dose losartan 50 mg daily, but reduce down to losartan 50 mg daily given soft blood pressure. DC olmesartan-hydrochlorothiazide given same medication class of ARB's. Patient has chronic CHF HFpEF ejection fraction 50 to 55%, previous echo (01/12/2023) dyskinesis of mid septal wall motion. EF 50 to 55%. 30 mmHg of the right ventricular systolic pressure. Given stable CHF and preserved ejection fraction please continue Losartan only. Hyperlipidemia co ntinue home medication of atorvastatin 20 mg at bedtime. Incidental finding of thyroid nodules on the right 13 mm, TSH 0.31, free T41.28, please follow-up outpatient with sonography. Incidental of kidney lesion, 8 mm cystic lesion on left kidney, please follow-up with sonography as an outpatient to monitor any changes. Instructions: -Please continue Azithromycin 500 mg once a day for three more days for the pneumonia -Please continue home medication Losartan 50 mg once a day for blood pressure control -Please continue Pravastatin 20 mg oral once a day for cholesterol -continue Travoprost eye drops for your eys -Please STOP Olmesartan-Hydrochlorothiazide 20-12.5mg -If your symptoms worsen,please seek immediate medical attention and return to your nearest emergency room -If you do not have a primary care provider, you may follow up at the [facility] [address], [place] [address] Por favor de seguir tomando Azithromycin 500mg linda vez al dorian por, eric otero mas, para la [place]. Por favor de seguir tomando reyes medicamentos Losaratan 50mg linda ves al dorian para la pression. Por favor de NO seguir tomando Olmesartan-Hydrochlorothiazide 20-12.5 mg. Disposition: Home #Acute Hypoxic respiratory failure, resolved #Community Acquired Pneumonia #Leukocytosis, improved #Hypternsive Urgency, Resolved #Hyptersion #CHF, HFpEF 50-55% #Chronic Congestive Heart Failure #Hyperlipedimia #Thyroid Nodule CTA Chest Abdomen/Chest: Right thyromegaly with 13 mm right thyroid nodule #Kidney Lesion CTA Abdomen/Chest: 8mm cystic lesion above the left kidney - The patient's plan was discussed with attending Dr. Hawley and senior residents Dr. Danny Lane MD PGY1 Internal Medicine Time Spent with Patient Time attestation: Total time spent providing and/or coordinating discharge services: at least 35 minutes of care. Exam Vital Signs Temp Pulse Resp BP Pulse Ox O2 Del Method O2 Flow Rate 97.1 F 77 19 136/71 H 95 Nasal Cannula 2 04/15/24 12:00 04/15/24 13:27 04/15/24 12:00 04/15/24 12:00 04/15/24 12:00 04/15/24 12:00 04/15/24 12:00 Narrative Exam General Appearance: Alert & Oriented X3, well-nourished female who is lying in bed in no acute distress HEENT: Skull symmetrical and atraumatic. Conjunctivae pin and moist. Pupils equal, round, reactive to light and accommodation (PERRL). External ear without lesion or discharge. Straight, nares patient, mucosa pink, no discharge. Cardio: Normal Rate and Rhythm with S1 and S2 heart sounds. No murmurs or extra heart sounds auscultated. No bruits on carotid auscultation. No peripheral edema or cyanosis. Lungs: Symmetric with good expansion. Chest and back non-tender. Breath sounds vesicular with minimal rhonchi. Abdomen: Non-tender, Non-distended, Normal Reactive Bowel Sounds Neuro: Alert, cooperative, oriented to person, place, and time. Speech clear. CN grossly intact. Upper motor strength 5/5 and Lower motor strength 5/5. Sensation intact. Discharge Plan Plan Patient Disposition: HOME (Self Care) Care Plan Goals: Instructions: -Please continue Azithromycin 500 mg once a day for three more days for the pneumonia -Please continue home medication Losartan 50 mg once a day for blood pressure control -Please continue Pravastatin 20 mg oral once a day for cholesterol -continue Travoprost eye drops for your eys -Please STOP Olmesartan-Hydrochlorothiazide 20-12.5mg -Thyroid Nodule -CTA Chest Abdomen/Chest: Right thyromegaly with 13 mm right- recommend thyroid sonography follow-up -Kidney Lesion CTA Abdomen/Chest: 8mm cystic lesion above the left kidney- recommend abdominal sonography follow-up -If your symptoms worsen,please seek immediate medical attention and return to your nearest emergency room -If you do not have a primary care provider, you may follow up at the [facility] [address], [place] [address] Por favor de seguir tomando Azithromycin 500mg linda vez al dorian por, eric otero mas, para la [place]. Por favor de seguir tomando reyes medicamentos Losaratan 50mg linda ves al dorian para la pression. Por favor de NO seguir tomando Olmesartan-Hydrochlorothiazide 20-12.5 mg. Prescriptions/Referrals Prescriptions/Med Rec: New azithromycin 500 mg tablet 500 mg PO QDAY 3 Days Qty: 3 0RF losartan 50 mg tablet 50 mg PO QDAY Qty: 30 0RF Rx Instructions: Hold if SBP drops below 100 and 60 mmHg meloxicam 7.5 mg tablet 7.5 mg PO QDAY PRN (Reason: pain) Qty: 7 0RF Continued albuterol sulfate [Ventolin HFA] 90 mcg/actuation HFA aerosol inhaler 2 puff inhalation Q6H PRN (Reason: shortness of breath or wheezing) Qty: 8.5 0RF pravastatin 20 mg Tablet 20 mg PO QDAY travoprost 0.004 % Drops 1 drp OPHTHALMIC (EYE) QPM dorzolamide-timolol 22.3-6.8 mg/mL Drops 1 drp OPHTHALMIC (EYE) BID Discontinued losartan 100 mg tablet 100 mg PO QDAY Hold Instructions: f/u with PCP amoxicillin-pot clavulanate 875-125 mg tablet 1 tab PO BID Qty: 14 0RF olmesartan-hydrochlorothiazide 20-12.5 mg Tablet 1 tab PO QDAY Referrals: No Primary/Family,Physician [Primary Care Provider] - Patient/Caregiver Discharge Instructions Education Materials: Treating Pneumonia, When You Have Pneumonia Print Language: Colombian Stand Alone Forms: Nikki Award Info., Patient Portal Info Letter Discharge Order Discharge Orders: Discharge (Routine); Ordered 04/15/24 Ordered By: Florentin Delgado Quality Discharge Quality Measures VTE prophylaxis
--- NOTE | 2024-04-15 15:58 | PC.NURSE ---
I entered the room to see if pt was ready for discharge, one of the men in the room said she's saying she doesn't feel well enough to go home yet, I notified Dr. Delgado
--- NOTE | 2024-04-15 16:06 | PC.SS ---
Addendum entered by Fabiana Henderson 04/15/24 16:19: [facility] accepted and will contact patient in regards to delivery. Original Note: SS follow up note; SS submitted inquiry for a FWW through [employer].
--- NOTE | 2024-04-15 16:07 | ESPR_ITS ---
<Statement entered by Florentin Delgado MD - 04/15/24 18:10> Patient was seen and examined at the bedside. Patient reported that she had pleuritic chest pain with mild shortness of breath and want to stay 1 more day. We added meloxicam for pleuritic chest pain and continue her IV antibiotics for 1 more day and anticipate discharge tomorrow morning. Will continue IV ceftriaxone and azithromycin for CAP. All labs and orders were reviewed. I saw and examined the patient, and I agree with current management stated by Dr Domingo MD,PGY1. Plan of care was discussed with the attending physician and resident physician. Disclaimer: Despite multiple revisions, due to the dictation software being used, the document bellow may not be free of grammatical errors including phonetic/typographic errors. However, this does not deter from our commitment to providing health care in the patient's best interest in mind. Dr. Danny MD, PGY 2 Documentation for date of: 04/15/24 Subjective Subjective Interval history: Patient is a 84-year-old female with a past medical history of hypertension, hyperlipidemia, CHF HFpEF 50 to 55% (01/07/2023), history of PE, GERD, and history of overactive bladder who was admditted for acute hypoxic respiratory failure secondary to acquired pneumonia. No overnight events reported for patient. Patient stated she has NOT had a bowel movement since admission, but 1 bowel movement recorded for 04/14/2024 by nursing staff. Patient stated she had improved work of breathing. Pleuritic chest pain on deep inspiration. PT recommended ambulation with walker and at PLOF. Patient stated she had a walker at home, this afternoon, granddaughter at bedside stated patient lied and did not have a walker. Updated director social, for walker on discharge. Today patient was ready for discharge but was feeling apprehensive about returning home, felt she would received better care at the hospital versus home. Discharge held for continued improvement on work of breathing. Exam Vital Signs Temp Pulse Resp BP Pulse Ox O2 Del Method O2 Flow Rate 97.1 F 78 18 136/71 H 99 Nasal Cannula 2 04/15/24 12:00 04/15/24 14:53 04/15/24 14:53 04/15/24 12:00 04/15/24 14:53 04/15/24 12:00 04/15/24 14:53 Narrative Exam General Appearance: Alert & Oriented X3, well-nourished female who is lying in bed in no acute distress HEENT: Skull symmetrical and atraumatic. Conjunctivae pin and moist. Pupils equal, round, reactive to light and accommodation (PERRL). External ear without lesion or discharge. Straight, nares patient, mucosa pink, no discharge. Cardio: Normal Rate and Rhythm with S1 and S2 heart sounds. No murmurs or extra heart sounds auscultated. No bruits on carotid auscultation. No peripheral edema or cyanosis. Lungs: Symmetric with good expansion. Chest and back non-tender. Breath sounds vesicular mild rhonchi heard at right pulmonary field. Abdomen: Non-tender, Non-distended, Normal Reactive Bowel Sounds Neuro: Alert, cooperative, oriented to person, place, and time. Speech clear. CN grossly intact. Upper motor strength 5/5 and Lower motor strength 5/5. Sensation Objective Labs 04/16/24 04:54 04/16/24 04:54 Labs: Laboratory Results - last 24 hr 04/13/24 04/14/24 04/14/24 08:50 03:45 15:15 WBC RBC Hgb Hct MCV MCH MCHC RDW Std Deviation Plt Count Neut % (Auto) Lymph % (Auto) [place] % (Auto) Eos % (Auto) Baso % (Auto) Neut # (Auto) Lymph # (Auto) [place] # (Auto) Eos # (Auto) Baso # (Auto) Immature Gran # (Auto) Absolute Nucleated RBC Immature Gran % Nucleated RBC % Sodium Potassium Chloride Carbon Dioxide Anion Gap BUN Creatinine Estim Creat Clear Calc eGFR BUN/Creatinine Ratio Glucose Calculated Osmolality Calcium Corrected Calcium Magnesium Total Bilirubin AST ALT Alkaline Phosphatase Total Protein Albumin Globulin Albumin/Globulin Ratio Ur Collection Type Clean Catch Clean Catch Urine Color Lt-Yellow Lt-Yellow Urine Clarity Clear Clear Urine pH 5.5 5.5 Ur Specific [place] 1.010 1.010 Urine Protein Negative Negative Urine Glucose (UA) Negative Negative Urine Ketones Negative Negative Urine Blood Negative Negative Urine Nitrite Negative Negative Urine Bilirubin Negative Negative Urine Urobilinogen (Auto) Negative Negative Ur Leukocyte Esterase Negative Negative Urine RBC < 1 < 1 Urine WBC 0 < 1 Ur Squamous Epith Cells 1 < 1 Urine Bacteria None None Hyaline Casts < 1 Ur Culture Indicated? Not Indicated Coccidioides IgM Ab Cancelled 04/15/24 04:52 WBC 10.7 D RBC 3.29 L Hgb 9.9 L Hct 31.7 L MCV 96 MCH 30.1 MCHC 31.2 RDW Std Deviation 50.4 H Plt Count 238 Neut % (Auto) 55 Lymph % (Auto) 37 [place] % (Auto) 6 Eos % (Auto) 1 Baso % (Auto) 0 Neut # (Auto) 5.8 Lymph # (Auto) 4.0 [place] # (Auto) 0.7 Eos # (Auto) 0.1 Baso # (Auto) 0.0 Immature Gran # (Auto) 0.08 H Absolute Nucleated RBC 0.00 Immature Gran % 1 H Nucleated RBC % 0 Sodium 138 Potassium 3.9 Chloride 109 H Carbon Dioxide 25.5 Anion Gap 4 L BUN 26 H Creatinine 0.8 Estim Creat Clear Calc 53.3 L eGFR > 60 BUN/Creatinine Ratio 33 H Glucose 96 Calculated Osmolality 280 Calcium 9.6 Corrected Calcium 9.8 Magnesium 1.9 Total Bilirubin 0.3 AST 12 ALT 9 L Alkaline Phosphatase 77 D Total Protein 6.0 Albumin 3.7 Globulin 2.3 Albumin/Globulin Ratio 1.6 Ur Collection Type Urine Color Urine Clarity Urine pH Ur Specific [place] Urine Protein Urine Glucose (UA) Urine Ketones Urine Blood Urine Nitrite Urine Bilirubin Urine Urobilinogen (Auto) Ur Leukocyte Esterase Urine RBC Urine WBC Ur Squamous Epith Cells Urine Bacteria Hyaline Casts Ur Culture Indicated? Coccidioides IgM Ab Quality Measures Quality Measures VTE prophylaxis Advance care planning discussed with:: other Assessment & Plan Assessment Current Active Medications: Generic Name Dose Route Start Last Admin Trade Name Freq PRN Reason Stop Dose Admin Acetaminophen 650 mg 04/13/24 07:56 Acetaminophen 325 Mg Tablet PO 05/13/24 07:55 Q6H PRN Mild Pain 1-3 or Fever >100.4 Albuterol/Ipratropium 3 ml 04/13/24 11:00 04/15/24 14:52 Albuterol/Ipratropium (Duoneb) Rt Tari 3 Ml Nebu INH 05/13/24 10:59 3 ml Q4HRRT LORAINE Administration Atorvastatin Calcium 20 mg 04/14/24 21:00 04/14/24 20:37 Atorvastatin Calcium 20 Mg Tablet PO 05/14/24 20:59 20 mg HS LORAINE Administration Azithromycin 500 mg 04/15/24 09:00 04/15/24 10:01 Azithromycin 250 Mg Tablet PO 04/22/24 08:59 500 mg QDAY LORAINE Administration Docusate Sodium 100 mg 04/15/24 16:15 Docusate Sod 100 Mg Capsule PO 05/15/24 16:14 QDAY LORAINE Protocol Guaifenesin 100 mg 04/13/24 15:24 Guaifenesin Syrup 200 Mg/10 Ml Udc PO 05/13/24 15:23 QID PRN COUGH Protocol Heparin Sodium (Porcine) 5,000 unit 04/13/24 09:00 04/15/24 10:01 Heparin Sod Inj 5000 Unit/Ml Vial SC 04/27/24 08:59 5,000 unit Q12HR LORAINE Administration Ceftriaxone Sodium/Dextrose 50 mls @ 100 mls/hr 04/13/24 21:00 04/14/24 20:37 Rocephin/D5w 1gm Iv Premix IV 04/20/24 20:59 100 mls/hr 2100 LORAINE Administration Losartan Potassium 50 mg 04/16/24 09:00 Losartan Potassium 25 Mg Tablet PO 05/16/24 08:59 QDAY LORAINE Meloxicam 7.5 mg 04/15/24 16:00 Meloxicam 7.5 Mg Tablet PO 05/15/24 15:59 BID PRN PLEURETIC CHEST PAIN Pantoprazole Sodium 40 mg 04/13/24 09:00 04/15/24 10:02 Pantoprazole Inj 40 Mg Vial IV 05/13/24 08:59 40 mg QDAY LORAINE Administration Polyethylene Glycol 17 gm 04/15/24 16:15 Polyethylene Glycol 17 Gm Packet PO 05/15/24 16:14 QDAY LORAINE Plan Patient is a 84-year-old female with a past medical history of hypertension, hyperlipidemia, CHF HFpEF 50 to 55% (01/07/2023), history of PE, GERD, and history of overactive bladder who was admitted for acute hypoxic respiratory failure secondary to community acquired pneumonia. #Acute Hypoxic respiratory failure #Community Acquired Pneumonia #Leukocytosis, improved Etiology: given history of recent sick contact, postviral bacterial pneumonia can ont be ruled out such as GPC. Leukocytosis likely secondary to steroid use in ER. DDx: Cocci vs PE, less likely given negative CTA chest Diagnostics: Chest x-ray: Bronchitis pattern, minor prominence of left ventricle, osteopenia CTA chest (04/12/2024): Negative PE. Patchy areas of bilateral pneumonia. Mild cystic pattern. D-dimer 2310 WBC 10.1-->(04/15/2024) 10.7 flu Negative COVID Negative RSV Negative UA negative Plan Ceftriaxone 1 gm (04/13/2024---) Azithromycin 500 mg (04/13--) Duonebs Loraine Q4 HR Acetaminophen Mild pain & fever Guaifenesin Syrup PRN Gram Stain Sputum: NO WBC, No organisms Sputum Culture: pending Blood Culture-Negative Cocci-Pending MRSA Pending PT and Respiratory #Hypternsive Urgency, Resolved #Hyptersion Patient has a past medical history of hypertension and presented with hypertensive urgency with a systolic blood pressure greater than 180. Patient on 2 antihypertensive medications stated she was taking losartan and olmesartan hydrochlorothiazide 20-12.5. Patient is not sure if she is taking metoprolol. Contacted daughter and asked to bring a full list of all medications. Contacted patient's daughter and asked to bring a full list of all medications. Plan -Pending medication reconciliation -Losartan 100 mg Qday -Monitor Blood pressure -D/C olmesartan given losartan already on board #CHF, HFpEF 50-55% #Chronic Congestive Heart Failure Past medical congestive heart failure with preserved ejection fraction of 50 to 55% as seen on previous EKG in December 2022. Previous hospitalization patient was discharged on Lasix. Patient denied Lasix use. No pedal edema noted on physical exam troponins negative and BNP only mildly elevated at 119. Patient might be taking metoprolol. May work towards GDMT. Diagnostics: BNP 119 Troponins less than 0.02 Echo (01/12/2023): Dyskinetic mid-spetal wall motion. EF 50-55%. 30 mmHg Right ventricular systolic pressure. Mild AV sclerosis NYHA Class: I Plan: -Magnesium (3) AM -K>4 and Mg >2 -May work towards GDMT, less likely given patient is only HFpEF-avoid polypharmacy given patient's age -Fluid Restriction and Sodium Restriction 2 g per day -SpO <90%, support PRN -Daily Weights, Strict Ins and Outs, Fluid Striction (2,000), Sodium Restriction 2 grams per day -Cardiology Consult, appreciate recommendations. #Hyperlipedimia Patient has a past medical history of hyperlipidemia. Home medication is pravastatin 20 mg HS Diagnostics: (12/09/2018): Cholesterol 191, LDL 125, HDL 46, (04/14/2024) Lipid Panel: Triglycerides 85, Cholesterol 168, LDL 106, HDL 45 ASCVD-->does not qualify based on age Plan: -Atorvastatin 20 mg HS #Thyroid Nodule CTA Chest Abdomen/Chest: Right thyromegaly with 13 mm right thyroid nodule Diagnostics: (04/14/2024): TSH 0.31 and Free T4 1.28 Plan: -recommend thyroid sonography follow-up -consider antibodies as outpatient #Kidney Lesion CTA Abdomen/Chest: 8mm cystic lesion above the left kidney Plan -recommend abdominal sonography follow-up outpatient #Hypercalcemia, Resolved. Hypercalcemia likely secondary to decreased fluid, patient stated she has decreased appetite and has reduced her fluid intake. Given pneumonia-malignancy cannot be ruled out versus endocrine dysfunction as enlarged thyroid was noted on on CT a chest and abdomen. Plan -No acute intervention Health Maintenance: Disp: Pt is currently admitted to floors for further management of community acquired pneumonia , awaiting improved pleurtic chest pain FEN: cardiac, 2 g sodium restrictions DVT: on subQ heparin GI: Prtonix, history of GERD Code: Full Code - The patient's plan was discussed with attending Dr. Hawley and senior residents Dr. Danny Lane MD PGY1 Internal Medicine Attending Provider Attestation/Addendum I, Moon Hawley DO, attest that I was physically present for the jack portions of the service and evaluated the patient with the resident and I reviewed and discussed the case with the resident and agree with the resident's findings and plans of care as documented above Patient seen and eval this a.m. She states that she continues to have chest pain and unable to take deep breath due to pain. Troponins have been negative. Chest pain is reproducible on palpation. Suspect costochondritis as the cause for her pain. Encourage patient to use incentive spirometer. She remains on 1 L nasal cannula. Will test for O2 and start NSAID for pain control of costochondritis. Anticipate discharge in the next 24 hours.
[2024-04-15] MEDS: DOCUSATE SOD 100 MG CAPSULE PO (17:37)
[2024-04-15] MEDS: POLYETHYLENE GLYCOL 17 GM PACKET PO (17:37)
[2024-04-15] MEDS: cefTRIAXone/D5w 1gm IV premix 50 ML IV (20:34)
[2024-04-15] MEDS: ATORVASTATIN CALCIUM 20 MG TABLET PO (20:34)
[2024-04-16] VITALS (8 sets, daily range): BP systolic 91–113; BP diastolic 58–66; PULSE 66–75; RESP 16–22; TEMP 36.1–36.6; O2SAT 94–99
[2024-04-16] MEDS: ALBUTEROL/IPRATROPIUM (Duoneb) RT SOL 3 ML NEBU INH ×3 (03:00→11:08)
[2024-04-16 05:51] LABS: Basophils % (Auto) 0 % (0-2.5); Eosinophils # (Auto) 0.3 Thou/mm3 (0.0-0.5); Eosinophils % (Auto) 3 % (0-10); Hematocrit 32.6 % (36.0-46.0); Hemoglobin 10.5 g/dL (12.0-16.0); Immature Granulocytes % (Auto) 1 % (0-0); Immature Granulocytes Auto 0.06 Thou/mm3 (0.00-0.00); Lymphocytes # (Auto) 4.4 Thou/mm3 (1.0-4.8); Lymphocytes % (Auto) 44 % (10-50); Mean Corpuscular HGB Conc 32.2 g/dl (31.0-37.0); Mean Corpuscular Hemoglobin 31.2 pg (25.0-35.0); Mean Corpuscular Volume 97 fL (80-100); Monocytes # (Auto) 0.7 Thou/mm3 (0.0-0.8); Monocytes % (Auto) 7 % (0-12); Neutrophils # (Auto) 4.7 Thou/mm3 (1.8-7.7); Neutrophils % (Auto) 46 % (37-80); Nucleated Red Blood Cell % 0 /100 WBC (0); Platelet Count 206 Thou/mm3 (140-440); RDW Standard Deviation 49.8 fL (36.4-46.3); Red Blood Count 3.37 Miln/mm3 (4.00-5.20); White Blood Count 10.1 Thou/mm3 (3.6-11.0)
[2024-04-16 06:05] LABS: Alanine Aminotransferase 10 U/L (10-49); Albumin, Serum 3.7 gm/dL (3.4-4.8); Albumin/Globulin Ratio 1.6 (1.2-2.2); Alkaline Phosphatase 74 U/L (46-116); Anion Gap 6 (7-16); Aspartate Amino Transferase 15 U/L (0-34); BUN/Creatinine Ratio 28 Ratio (12-20); Bilirubin,Total 0.3 mg/dL (0.3-1.2); Blood Urea Nitrogen 22 mg/dL (9-23); Calcium 9.5 mg/dL (8.3-10.6); Calcium (Corrected) 9.7 mg/dL (8.5-10.1); Chloride 108 mMol/L (98-107); Creatinine (Component) 0.8 mg/dL (0.6-1.3); Estimated Creatinine Clearance 53.3 mL/min (>60); Globulin 2.3 gm/dL (2.3-3.5); Glucose 98 mg/dL (74-106); Magnesium 1.8 mg/dL (1.6-2.6); Osmolality,Calculated 282 (275-295); Phosphorous 3.5 mg/dL (2.4-5.1); Potassium 4.2 mMol/L (3.4-5.1); Sodium 140 mMol/L (136-145); eGFR > 60 See Note
[2024-04-16] MEDS: POLYETHYLENE GLYCOL 17 GM PACKET PO (08:34)
[2024-04-16] MEDS: LOSARTAN POTASSIUM 25 MG TABLET 50 MG PO (08:34)
[2024-04-16] MEDS: AZITHROMYCIN 250 MG TABLET 500 MG PO (08:34)
[2024-04-16] MEDS: DOCUSATE SOD 100 MG CAPSULE PO (08:34)
[2024-04-16] MEDS: HEPARIN SOD INJ 5000 UNIT/ML VIAL SC (08:34)
[2024-04-16] MEDS: PANTOPRAZOLE INJ 40 MG VIAL IV (08:35)
[2024-04-16] MEDS: Magnesium Sulfate 1 gm Ivpb 1 GM/100 ML BAG IV (10:22)
--- NOTE | 2024-04-16 12:15 | PC.SS ---
SS spoke to patient's family and FWW will be delivered to the home on Thursday.
--- NOTE | 2024-04-16 13:23 | ESDS_ITS ---
<Statement entered by Moon Hawley DO - 04/16/24 17:40> I, Moon Hawley DO, attest that I was physically present for the jack portions of the service and evaluated the patient with the resident and I reviewed and discussed the case with the resident and agree with the resident's findings and plans of care as documented above Planned Discharge Date 04/16/24 DS: Providers Provider Date of admission: 04/13/24 07:56 Primary care physician: Physician No Primary/Family Admitting Provider: Moon Hawley DO Attending Provider on Admission: Moon Hawley DO Consults: 04/13/24 08:08 Referral Physical Therapy Routine Comment: Physician Instructions: Referral Respiratory Therapy Routine Comment: Instructions: Patient may be using Cpap at home 04/13/24 20:47 Referral Registered Dietitian Routine Comment: 04/13/24 23:40 Referral Summers Routine Comment: Attending Provider on DC: Moon Hawley DO Discharging Provider: Moon Hawley DO DS: Diagnosis Problem List Completed Was Problem List Reviewed/Reconciled?: Yes Hospital Course Hospital Course Hospital course: DC summary: This Patient is a 84-year-old female with a past medical history of hypertension, hyperlipidemia, CHF HFpEF 50 to 55% (01/07/2023), history of PE, GERD, and history of overactive bladder who was admitted on 04/13/2024 for acute hypoxic respiratory failure secondary to community acquired pneumonia. Initially, patient was hypertensive however saturating well on room air. EKG showed sinus rhythm with LBBB. D-dimers were elevated. Chest x-ray and chest CT was significant for patchy areas of bilateral pneumonia. Head CT was negative for any acute changes. Troponin I was mildly elevated. During hospital course, patient required only 3 to 4 L of nasal cannula. She was tested negative for COVID and influenza. Sputum culture and blood culture showed no growth. Patient was treated with DuoNebs scheduled, ceftriaxone and azithromycin. MRSA negative. Patient was started on home dose losartan 50 mg daily, but reduce down to losartan 50 mg daily given soft blood pressure. DC olmesartan-hydrochlorothiazide given same medication class of ARB's. Patient has chronic CHF HFpEF ejection fraction 50 to 55%, previous echo (01/12/2023) dyskinesis of mid septal wall motion. EF 50 to 55%. 30 mmHg of the right ventricular systolic pressure. Given stable CHF and preserved ejection fraction please continue Losartan only. Hyperlipidemia continue home medication of atorvastatin 20 mg at bedtime. Incidental finding of thyroid nodules on the right 13 mm, TSH 0.31, free T41.28, please follow-up outpatient with sonography. Incidental of kidney lesion, 8 mm cystic lesion on left kidney, please follow- up with sonography as an outpatient to monitor any changes. Patient was medically stable to be discharged today. She denied any pleuritic chest pain and was recommended to continue azithromycin for 3 more days to complete course of antibiotic for pneumonia likely community-acquired. Patient will be discharged to home with front wheeled walker and home oxygen. # Problem list: #Acute Hypoxic respiratory failure, resolved #Community Acquired Pneumonia #Leukocytosis, improved #Hypternsive Urgency, Resolved #Hyptersion #CHF, HFpEF 50-55% #Chronic Congestive Heart Failure #Hyperlipedimia #Thyroid Nodule, per CTA Chest Abdomen/Chest: Right thyromegaly with 13 mm right thyroid nodule #Kidney Lesion per CTA Abdomen/Chest: 8mm cystic lesion above the left kidney DC instructions: -Please continue Azithromycin 500 mg once a day for three more days for the pneumonia -Please continue home medication Losartan 50 mg once a day for blood pressure control -Please continue Pravastatin 20 mg oral once a day for cholesterol -continue Travoprost eye drops for your eys -Please STOP Olmesartan-Hydrochlorothiazide 20-12.5mg -Thyroid Nodule -CTA Chest Abdomen/Chest: Right thyromegaly with 13 mm right- recommend thyroid sonography follow-up -Kidney Lesion CTA Abdomen/Chest: 8mm cystic lesion above the left kidney- recommend abdominal sonography follow-up -If your symptoms worsen,please seek immediate medical attention and return to your nearest emergency room -If you do not have a primary care provider, you may follow up at the [facility] at [address], [place] [address] Por favor de seguir tomando Azithromycin 500mg linda vez al dorian por, eric otero mas, para la Neumonia. Por favor de seguir tomando reyes medicamentos Losaratan 50mg linda ves al dorian para la pression. Por favor de NO seguir tomando Olmesartan-Hydrochlorothiazide 20-12.5 mg. -- Plan of care discussed with attending physician, Dr. Marleen Delgado MD, PGY 2 Time Spent with Patient Time attestation: Total time spent providing and/or coordinating discharge services: Time spent: Greater than 30 minutes Exam Vital Signs Temp Pulse Resp BP Pulse Ox O2 Del Method O2 Flow Rate 97.4 F 74 16 105/66 95 Room Air 2 04/16/24 12:00 04/16/24 12:04/16/24 12:04/16/24 12:04/16/24 12:04/16/24 12:04/16/24 11:10 Narrative Exam General Appearance: Alert & Oriented X3, well-nourished female who is lying in bed in no acute distress HEENT: Skull symmetrical and atraumatic. Conjunctivae pin and moist. Pupils equal, round, reactive to light and accommodation (PERRL). External ear without lesion or discharge. Straight, nares patient, mucosa pink, no discharge. Cardio: Normal Rate and Rhythm with S1 and S2 heart sounds. No murmurs or extra heart sounds auscultated. No bruits on carotid auscultation. No peripheral edema or cyanosis. Lungs: Symmetric with good expansion. Chest and back non-tender. Breath sounds vesicular mild rhonchi heard at right pulmonary field. Abdomen: Non-tender, Non-distended, Normal Reactive Bowel Sounds Neuro: Alert, cooperative, oriented to person, place, and time. Speech clear. CN grossly intact. Upper motor strength 5/5 and Lower motor strength 5/5. Sensation Discharge Plan Plan Patient Disposition: HOME (Self Care) Patient condition on transfer: Stable Care Plan Goals: Instructions: -Please continue Azithromycin 500 mg once a day for three more days for the pneumonia -Please continue home medication Losartan 50 mg once a day for blood pressure control -Please continue Pravastatin 20 mg oral once a day for cholesterol -continue Travoprost eye drops for your eys -Please STOP Olmesartan-Hydrochlorothiazide 20-12.5mg -Thyroid Nodule -CTA Chest Abdomen/Chest: Right thyromegaly with 13 mm right- recommend thyroid sonography follow-up -Kidney Lesion CTA Abdomen/Chest: 8mm cystic lesion above the left kidney- recommend abdominal sonography follow-up -If your symptoms worsen,please seek immediate medical attention and return to your nearest emergency room -If you do not have a primary care provider, you may follow up at the [facility] at [address], [place] [address] Por favor de seguir tomando Azithromycin 500mg linda vez al dorian por, eric otero mas, para la Neumonia. Por favor de seguir tomando reyes medicamentos Losaratan 50mg linda ves al dorian para la pression. Por favor de NO seguir tomando Olmesartan-Hydrochlorothiazide 20-12.5 mg. Prescriptions/Referrals Prescriptions/Med Rec: New azithromycin 500 mg tablet 500 mg PO QDAY 3 Days Qty: 3 0RF losartan 50 mg tablet 50 mg PO QDAY Qty: 30 0RF Rx Instructions: Hold if SBP drops below 100 and 60 mmHg meloxicam 7.5 mg tablet 7.5 mg PO QDAY PRN (Reason: pain) Qty: 7 0RF Continued albuterol sulfate [Ventolin HFA] 90 mcg/actuation HFA aerosol inhaler 2 puff inhalation Q6H PRN (Reason: shortness of breath or wheezing) Qty: 8.5 0RF pravastatin 20 mg Tablet 20 mg PO QDAY travoprost 0.004 % Drops 1 drp OPHTHALMIC (EYE) QPM dorzolamide-timolol 22.3-6.8 mg/mL Drops 1 drp OPHTHALMIC (EYE) BID Discontinued losartan 100 mg tablet 100 mg PO QDAY Hold Instructions: f/u with PCP amoxicillin-pot clavulanate 875-125 mg tablet 1 tab PO BID Qty: 14 0RF olmesartan-hydrochlorothiazide 20-12.5 mg Tablet 1 tab PO QDAY Referrals: No Primary/Family,Physician [Primary Care Provider] - Patient/Caregiver Discharge Instructions Education Materials: Treating Pneumonia, When You Have Pneumonia Print Language: Mohawk Stand Alone Forms: Nikki Award Info., Patient Portal Info Letter Discharge Order Discharge Orders: Discharge (Routine); Ordered 04/16/24 Ordered By: Florentin Delgado Quality Discharge Quality Measures VTE prophylaxis (Heparin subcut)
== END 2024-04-16 13:34 | disposition home or self-care (01) | DRG 139 ==
LOC: SERX 04-13 06:08 → SERHOLD 04-13 08:07 → S3SX 04-13 19:07
PROVIDERS: Registered Nurse General Practice; Admitting Provider Internal Medicine; Emergency Provider Emergency Medicine; Visit Provider Internal Medicine
DX: J18.9 Pneumonia, unspecified organism (principal); J96.01 Acute respiratory failure with hypoxia; E78.5 Hyperlipidemia, unspecified; I11.0 Hypertensive heart disease with heart failure; I50.32 Chronic diastolic (congestive) heart failure; E11.9 Type 2 diabetes mellitus without complications; K21.9 Gastro-esophageal reflux disease without esophagitis; Z86.711 Personal history of pulmonary embolism; E04.1 Nontoxic single thyroid nodule; I25.10 Atherosclerotic heart disease of native coronary artery without angina pectoris; N28.9 Disorder of kidney and ureter, unspecified; E83.52 Hypercalcemia; I44.7 Left bundle-branch block, unspecified
CPT/HCPCS: 36415; 70450; 71045; 71275; 74174; 80053; 80061; 81001; 83690; 83735; 83880; 84100; 84439; 84443; 84484; 85025; 85379; 86635; 87040; 87081; 87205; 87400; 87634; 87811; 93005; 93225; 94640; 96374; 97162; 99285; A4649; A9270; J0456; J0696; J1643; J2470; J2919; J3475; J7050; Q0162; Q9967; J1644

== ENCOUNTER 2024-05-06 21:12 | Emergency (ER) | payer MEDICAID, SELFPAY ==
[2024-05-06 21:34] VITALS: BP 184/121; PULSE 86; RESP 20; TEMP 36.6; O2SAT 93
[2024-05-06 22:16] VITALS: PULSE 94; RESP 20; O2SAT 96
[2024-05-06 22:19] VITALS: BP 164/101; PULSE 83; RESP 19; O2SAT 95
--- NOTE | 2024-05-06 22:38 | PD.EDSOB ---
ED SOB =RME/HPI General Chief Complaint: Shortness of Breath/Dyspnea Stated Complaint: SOB Time Seen by Provider: 05/06/24 22:48 Arrival date/time: 05/06/24 21:12 RME / HPI RME / HPI Narrative: Dr. Copeland?s Main ED Evaluation: 84yo female with pmhx CHF, HTN, HLD BIBA from home presents to the ED for a chief complaint of shortness of breath. Patient's daughter states the patient has been short of breath for the last 1 month since she was discharged from here after being diagnosed with pneumonia. Patient states she is on 2L of oxygen at home PRN, but reports the patient has been having to use it 10/11 since she was discharged. She states the patient's shortness of breath significantly worsened tonight when she was sitting down, so she called 911 to bring her in for evaluation. Patient reports associated chest pain, cough, and back pain. Daughter denies any fever, chills or any other associated symptoms. Patient does not have a animal behaviourist, and has not followed-up with her PCP due to not being able to get an appointment. Patient is on Lasix. No known allergies. Related Data Home Medications ?Medication ?Instructions ?Recorded ?Confirmed dorzolamide 22.3 mg-timolol 6.8 1 drp ophthalmic (eye) BID 04/13/24 04/13/24 mg/mL eye drops pravastatin 20 mg tablet 20 mg PO QDAY 04/13/24 04/13/24 travoprost 0.004 % eye drops 1 drp ophthalmic (eye) QPM 04/13/24 04/13/24 Previous Rx's ?Medication ?Instructions ?Recorded albuterol sulfate 90 mcg/actuation 2 puff inhalation Q6H PRN 03/29/23 aerosol inhaler (Ventolin HFA) shortness of breath or wheezing #8.5 grams losartan 50 mg tablet 50 mg PO QDAY #30 tabs 04/15/24 meloxicam 7.5 mg tablet 7.5 mg PO QDAY PRN pain #7 tabs 04/15/24 albuterol sulfate 90 mcg/actuation 1 inh inhalation QID PRN shortness 05/07/24 aerosol inhaler of breath or wheezing #8.5 grams levofloxacin 500 mg tablet 500 mg PO QDAY #7 tabs 05/07/24 Allergies Allergy/AdvReac Type Severity Reaction Status Date / Time No Known Allergies Allergy Unverified 04/06/18 11:38 Review of Systems Review of Systems Systems Reviewed: All systems reviewed, normal except as documented Narrative Review of Systems: Gen: No fever, no chills, no weight loss EYES: No discharge, no visual changes, no pain HEENT: No ear pain, no congestion, no sore throat PULM: + shortness of breath, + cough, no congestion CV: + chest pain, no dyspnea on exertion, no palpitations GI: No nausea, no vomiting, no diarrhea, no pain, no constipation : No frequency, no urgency, no dysuria Musc/skel: No joint pain, + back pain Skin: No rash. Warm and dry. Psyc: No hallucinations, no depression Heme/Lymph: No easy bleeding or bruising tendencies Neuro: No weakness, no headache Past Medical History Past Medical History NEUROLOGIC: Positive Seizures (30 years ago) and Migraine; Negative Neurological Disorders CARDIAC: Positive Cardiac Disorders, Hypercholesterolemia, Congestive Heart Failure, Edema, Deep Vein Thrombosis, Hypertension and Hypotension RESPIRATORY: Positive Bronchitis, Pneumonia and Pulmonary Embolism; Negative Chronic Obstructive Pulmonary Disease (COPD) or Asthma GASTROINTESTINAL: Positive Gastrointestinal Disorders and Gastroesophageal Reflux Disease; Negative Hepatitis GENITOURINARY: Positive Genitourinary Disorders (Overreactive bladder.); Negative Renal Disease REPRODUCTIVE: Positive Previous Pregnancies MUSCULOSKELETAL: Positive Arthritis; Negative Musculoskeletal Disorders ENT: Positive Cataracts, Glaucoma and Blind (blind right side) ENDOCRINE: Negative Endocrine Disorders, Diabetes Mellitus Type 1 or Diabetes Mellitus Type 2 HEMATOLOGIC: Negative Blood Disorders or Sickle Cell Disease PSYCHO/SOCIAL: Positive Depression and Anxiety (TAKES MEDS) OTHER HISTORY: Positive Hospitalization, Chicken Pox, Measles and Mumps; Negative Falls, Blood Transfusions, Blood Transfusion Reaction, Anesthesia Reactions or Cancer Family History FAMILY HISTORY: Positive Family Respiratory Disorders, Family Cardiac Disorders and Family Cancer Surgical History SURGICAL: Positive Cardiac Surgery, Open Heart Surgery, Coronary Artery Bypass Graft, Coronary Stent, Angiogram, Abdominal Surgery and Hysterectomy Social History SMOKING STATUS: Never smoker SUBSTANCE USE: does not use ED Exam Narrative Physical exam: GENERAL APPEARANCE: AxOx4, generally well-appearing, no acute respiratory distress. HEENT: NC, AT. MMM. EOMI, clear conjunctiva, oropharynx clear. NECK: Supple without lymphadenopathy. No stiffness or restricted ROM. HEART: Normal rate and regular rhythm, normal S1/S1, no m/r/g LUNGS: CTAB, moving air well. No crackles or wheezes are heard. ABDOMEN: Soft, nontender, nondistended with good bowel sounds heard. BACK: No midline C/T/L spine pain or deformity, No CVAT, no obvious deformity. EXTREMITIES: Without cyanosis, clubbing or edema. MUSCULOSKELETAL: FROM of all major joints, no chest tenderness NEUROLOGICAL: Grossly nonfocal. Alert and oriented, moving all 4 extremities. CN not formally tested but appear grossly intact. Observed to ambulate with normal gait. Skin: Warm and dry without any rash. Course Course Course Narrative: CXR is ordered for determining the etiology of shortness of breath. Quality Measures none Orders Category Date Time Status Bedside COVID-19 Antigen Test NOW Care 05/06/24 22:53 Completed Bedside Influenza A&B Antigen Test NOW Care 05/06/24 22:53 Completed XR chest 1V Stat Exams 05/06/24 22:53 Completed BNP [B-Type Natriuretic Peptide] Stat Lab 05/06/24 23:04 Completed CBC Stat Lab 05/06/24 23:04 Completed CMP [Comprehensive Metabolic Panel] Stat Lab 05/06/24 23:04 Completed Troponin I Stat Lab 05/06/24 23:04 Completed Vital Signs Vital signs: Vital Signs Temperature 97.9 F 05/06/24 21:34 Pulse Rate 86 05/06/24 21:34 Respiratory Rate 20 05/06/24 21:34 Blood Pressure 184/121 H 05/06/24 21:34 Pulse Oximetry (%) 93 L 05/06/24 21:34 Oxygen Delivery Method Room Air 05/06/24 21:34 Shortness of Breath / Dyspnea MDM Narrative MDM Narrative:: Scribe Attestation: 05/06/24 Monet Agarwal am scribing for and in the presence of Dr. Copeland. Patient data External records reviewed:: [facility] previous records (Per chart review, patient was admitted here on 04/12/24 for acute respiratory failure.) Clinical information provided by:: patient and family (patient's daughter) Social determinants that could affect healthcare access:: none Patient has the following chronic illnesses:: CHF, HTN, HLD How is presenting disease/condition affected by chronic disease/condition?: exacerbated by Evaluation data The following diagnostics were reviewed and interpreted by me:: lab results and radiology exam(s) Lab and/or radiology exams considered but not ordered:: none Interpretation Summary: CBC is normal, BUN is 25, troponin is normal, BNP is 161, Bedside COVID and Influenza are negative, according to my interpretation. EKG done at 2217, NSR, rate of 73, widened QRS, LBBB, no acute ST or T-wave changes, unchanged from previous EKG, according to my interpretation. ----- [facility] Report Signed Patient: SHIREEN COLLINS. Record#: [id number] Birthdate: 1940 Age/Sex: 84 / F Location: [facility] Attending Dr: Ordering Physician: Robin Copeland MD Date of Service: 05/06/24 Procedure(s): XR chest 1V Accession Number(s): [id number] cc: Robin Copeland MD; Luis Carlos Mendoza MD~ Examination: AP chest single view Technique one AP portable semiupright chest single view Exam date and time: May 06, 2024 11:05 PM Indications: Onset SOB today. Findings: Mild increased markings left base Mild prominence left ventricle Mild to moderate elevation right hemidiaphragm No pulmonary edema Impression: Suspicious for early pneumonia left base, clinical correlation advised Dictated By: Luis Carlos Mendoza MD Signed By: <Electronically signed by Luis Carlos Mendoza MD in OV> 05/06/24 2318 Medications / Prescriptions Medications or Prescriptions considered but not ordered:: none Medication administrations:: see above, if any Consultations Consultation(s) initiated? (list below): No Diagnosis Shortness of Breath Differential Diagnosis: community acquired pneumonia and other (bronchitis, hospital acquired pneumonia) Most likely diagnosis given after review of the tests above:: see below Admission Indicated Admission indicated?: not indicated Admission Request Was there a request for admission?: No Disposition Plan Disposition Plan: Discharge Discharge Attestation Discharge Attestation: The patient and all family members were given an opportunity to ask questions and understood the discharge instructions. Discharge instructions specifically effects, indications for sooner follow up or return to the emergency department, and the expected course of current diagnosis. Patient condition: Stable Discharge Plan Plan Patient Disposition: HOME (Self Care) Prescriptions/Referrals Prescriptions/Med Rec: New levofloxacin 500 mg tablet 500 mg PO QDAY Qty: 7 0RF albuterol sulfate 90 mcg/actuation HFA aerosol inhaler 1 inh inhalation QID PRN (Reason: shortness of breath or wheezing) Qty: 8.5 0RF No Action albuterol sulfate [Ventolin HFA] 90 mcg/actuation HFA aerosol inhaler 2 puff inhalation Q6H PRN (Reason: shortness of breath or wheezing) Qty: 8.5 0RF pravastatin 20 mg Tablet 20 mg PO QDAY travoprost 0.004 % Drops 1 drp OPHTHALMIC (EYE) QPM dorzolamide-timolol 22.3-6.8 mg/mL Drops 1 drp OPHTHALMIC (EYE) BID losartan 50 mg tablet 50 mg PO QDAY Qty: 30 0RF Rx Instructions: Hold if SBP drops below 100 and 60 mmHg meloxicam 7.5 mg tablet 7.5 mg PO QDAY PRN (Reason: pain) Qty: 7 0RF Referrals: Jose Padilla MD [Primary Care Provider] - In 1 week Problem List Clinical Impression: Bronchitis, Chronic lung disease Patient/Caregiver Discharge Instructions Education Materials: ED Upper Resp Infec Abx Tx Additional Instructions: Puede continuar con buckley ox?ray en casa seg?n lo prescrito. Nehemias un seguimiento con buckley m?dico de atenci?n primaria en 2 a 3 d?as para volver a controlarlo. Puede regresar al departamento de emergencias antes si los s?ntomas empeoran o si nota alg?n problema nuevo o preocupante. Print Language: Cymro Stand Alone Forms: Nikki Award Info., Patient Portal Info Letter
--- NOTE | 2024-05-06 22:53 | XR_ITS ---
Examination: AP chest single view Technique one AP portable semiupright chest single view Exam date and time: May 06, 2024 11:05 PM Indications: Onset SOB today. Findings: Mild increased markings left base Mild prominence left ventricle Mild to moderate elevation right hemidiaphragm No pulmonary edema Impression: Suspicious for early pneumonia left base, clinical correlation advised
[2024-05-06 23:06] VITALS: BMI 34.7
[2024-05-06 23:13] LABS: Basophils % (Auto) 0 % (0-2.5); Eosinophils # (Auto) 0.3 Thou/mm3 (0.0-0.5); Eosinophils % (Auto) 5 % (0-10); Hematocrit 31.4 % (36.0-46.0); Hemoglobin 10.3 g/dL (12.0-16.0); Immature Granulocytes % (Auto) 0 % (0-0); Immature Granulocytes Auto 0.02 Thou/mm3 (0.00-0.00); Lymphocytes # (Auto) 2.7 Thou/mm3 (1.0-4.8); Lymphocytes % (Auto) 35 % (10-50); Mean Corpuscular HGB Conc 32.8 g/dl (31.0-37.0); Mean Corpuscular Volume 95 fL (80-100); Monocytes # (Auto) 0.5 Thou/mm3 (0.0-0.8); Monocytes % (Auto) 7 % (0-12); Neutrophils % (Auto) 53 % (37-80); Nucleated Red Blood Cell % 0 /100 WBC (0); Platelet Count 201 Thou/mm3 (140-440); RDW Standard Deviation 47.4 fL (36.4-46.3); Red Blood Count 3.32 Miln/mm3 (4.00-5.20); White Blood Count 7.5 Thou/mm3 (3.6-11.0)
[2024-05-06 23:30] VITALS: BP 159/88; PULSE 88; TEMP 36.7; O2SAT 96
[2024-05-06 23:41] LABS: B-Type Natriuretic Peptide 161 pg/mL (0-100)
[2024-05-06 23:44] LABS: Alanine Aminotransferase 16 U/L (10-49); Albumin, Serum 3.8 gm/dL (3.4-4.8); Albumin/Globulin Ratio 1.6 (1.2-2.2); Alkaline Phosphatase 108 U/L (46-116); Anion Gap 7 (7-16); Aspartate Amino Transferase 33 U/L (0-34); BUN/Creatinine Ratio 25 Ratio (12-20); Bilirubin,Total 0.2 mg/dL (0.3-1.2); Blood Urea Nitrogen 15 mg/dL (9-23); Calcium 9.3 mg/dL (8.3-10.6); Calcium (Corrected) 9.5 mg/dL (8.5-10.1); Carbon Dioxide 24.1 mMol/L (20.0-31.0); Chloride 111 mMol/L (98-107); Creatinine (Component) 0.6 mg/dL (0.6-1.3); Estimated Creatinine Clearance 76.5 mL/min (>60); Globulin 2.4 gm/dL (2.3-3.5); Glucose 113 mg/dL (74-106); Osmolality,Calculated 284 (275-295); Potassium 4.9 mMol/L (3.4-5.1); Sodium 142 mMol/L (136-145); Total Protein 6.2 gm/dL (5.7-8.2); Troponin I < 0.020 ng/mL (0.0-0.045); eGFR > 60 See Note
[2024-05-07 01:00] VITALS: BP 162/91; PULSE 85; RESP 18; O2SAT 96
--- NOTE | 2024-05-07 04:41 | PC.NURSE ---
pt has been sleeping since arival. arouses easily. Appears in NAD
== END 2024-05-07 01:25 | disposition home or self-care (01) ==
PROVIDERS: Emergency Provider Emergency Medicine; PCP Family Medicine
DX: J42 Unspecified chronic bronchitis (principal); I11.0 Hypertensive heart disease with heart failure; I50.9 Heart failure, unspecified; E78.5 Hyperlipidemia, unspecified
CPT/HCPCS: 36415; 71045; 80053; 83880; 84484; 85025; 87400; 87811; 99283

== ENCOUNTER 2024-09-11 17:15 | Emergency (ER) | payer MEDICAID, SELFPAY ==
[2024-09-11 17:16] VITALS: BMI 32.9
[2024-09-11 17:25] VITALS: BP 167/96; PULSE 64; RESP 16; TEMP 36.9; O2SAT 95
--- NOTE | 2024-09-11 17:30 | EKG_ITS ---
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
--- NOTE | 2024-09-11 17:30 | XR_ITS ---
Examination: PA chest single view TECHNIQUE: Upright PA chest single view Date and time: September 11, 2024 1748 hours Comparison May 06, 2024 Indications coughing 3 days FINDINGS: Bibasilar and lingular segment left upper lobe pneumonia Normal heart size No pulmonary edema Prominent osteopenia IMPRESSION: Bibasilar and lingular segment left upper lobe pneumonia
--- NOTE | 2024-09-11 17:31 | PD.EDRME ---
Rapid Medical Screening Exam [facility] Arrival date/time: 09/11/24 17:15 84-year-old female with history of heart disease came in with chest pain and shortness of breath. Patient also had productive cough and fever Chief Complaint: Flu Like Symptoms Time Seen by Provider: 09/11/24 17:30 Vital signs: Vital Signs Temperature 98.5 F 09/11/24 17:25 Pulse Rate 64 09/11/24 17:25 Respiratory Rate 16 09/11/24 17:25 Blood Pressure 167/96 H 09/11/24 17:25 Pulse Oximetry (%) 95 09/11/24 17:25 Oxygen Delivery Method Room Air 09/11/24 17:25
--- NOTE | 2024-09-11 18:39 | EDNOTE_ITS ---
Upper Respiratory Inf. RME/HPI General Chief Complaint: Flu Like Symptoms Stated Complaint: FLU SYMPTOMS X3 DAYS Time Seen by Provider: 09/11/24 17:30 Arrival date/time: 09/11/24 17:15 RME / HPI RME / HPI Narrative: 09/11/24 17:15 84-year-old female with history of heart disease came in with chest pain and shortness of breath. Patient also had productive cough and fever This section includes all my notes and documentations, including HPI, PE, and ED course. Ramón Chandler MD HPI: 84yo female brought in by her daughter presents to the ED for a chief complaint of shortness of breath x 3 days. Daughter states the patient has been short of breath and generally weak for the last 3 days, reporting she has not been acting like herself . Patient reports subjective fever. Patient denies cough, nausea, vomiting or any other associated symptoms. No other complaints reported. ROS: All negative except as documented in HPI. Physical Exam: General: Alert and oriented. No acute distress. Eyes: Conjunctivae and lids clear. ENT: No nasal congestion. Pharynx normal. Tympanic membrane normal bilaterally. Neck: Supple. Heart: RRR. Lungs: No respiratory distress. Mildly decreased air movement with rales bila terally. Abdomen: Soft and nontender. Skin: Warm and dry. Neuro: Alert and oriented X 3. Cranial Nerves II-XII grossly intact. No peripheral motor deficits. I reviewed all diagnostic test results. My interpretation of the EKG is sinus rhythm with no acute ST?T changes. My interpretation of the chest x-ray is bibasilar and lingular segment left upper lobe pneumonia. Bedside Influenza swab is positive. Bedside COVID is negative. At this point, diagnoses include pneumonia and influenza. Treatment here included Rocephin. Recommended outpatient treatment. Based on my best medical judgment, made decision no further evaluation or treatment indicated at this time. Patient and daughter understands and agrees to the discharge instructions customized and printed, see below. Discharge instructions from Dr. Chandler: --No physical exertion for 3 days to help rest the lungs. ?No smoking or exposure to smoking or pets or dust or cold or humidity. --Zithromax and Tamiflu to kill the germs causing the influenza pneumonia. --Prednisone to help decrease the swelling in the airways. --Eat regular nutritious meals. For good hydration, increase oral fluid and maintain clear urine. If dark or yellow, increase oral fluid. --See a private doctor on 09/16/2024 if not completely better. --Seek immediate medical care with worsening or with any concerns. Ramón Chandler MD Related Data Home Medications ?Medication ?Instructions ?Recorded ?Confirmed dorzolamide 22.3 mg-timolol 6.8 1 drp ophthalmic (eye) BID 04/13/24 04/13/24 mg/mL eye drops pravastatin 20 mg tablet 20 mg PO QDAY 04/13/2404/13 travoprost 0.004 % eye drops 1 drp ophthalmic (eye) QP M 04/13/24 04/13/24 Previous Rx's ?Medication ?Instructions ?Recorded albuterol sulfate 90 mcg/actuation 2 puff inhalation Q 6H PRN 03/29/23 aerosol inhaler (Ventolin HFA) shortness of breath or wheezing #8.5 grams losartan 50 mg tablet 50 mg PO QDAY #30 tabs 04/15 meloxicam 7.5 mg tablet 7.5 mg PO QDAY PRN pain #7 t abs 04/15/24 albuterol sulfate 90 mcg/actuation 1 inh inhalation QI D PRN shortness 05/07/24 aerosol inhaler of breath or wheezing #8.5 g josh levofloxacin 500 mg tablet 500 mg PO QDAY #7 tabs 04/20 12/12 azithromycin 500 mg tablet 500 mg PO QDAY 3 days #3 ta bs 09/11/24 (Zithromax TRI-ANNE) oseltamivir 75 mg capsule (Tamiflu) 75 mg PO BID 5 day s #10 caps 09/11/24 prednisone 20 mg tablet 20 mg PO QDAY 3 days #3 tabs 09/11/24 Allergies Allergy/AdvReac Type Severity Reaction Status Date / Time No Known Allergies Allergy Verified 09/11/24 17:16 Review of Systems Review of Systems Systems Reviewed: All systems reviewed, normal except as documented Past Medical History Past Medical History NEUROLOGIC: Positive Seizures (30 years ago) and Migraine; Negative Neurological Disorders CARDIAC: Positive Cardiac Disorders, Hypercholesterolemia, Congestive Heart Failure, Edema, Deep Vein Thrombosis, Hypertension and Hypotension RESPIRATORY: Positive Bronchitis, Pneumonia and Pulmonary Embolism; Negative Chronic Obstructive Pulmonary Disease (COPD) or Asthma GASTROINTESTINAL: Positive Gastrointestinal Disorders and Gastroesophageal Reflux Disease; Negative Hepatitis GENITOURINARY: Positive Genitourinary Disorders (Overreactive bladder.); Negative Renal Disease REPRODUCTIVE: Positive Previous Pregnancies MUSCULOSKELETAL: Positive Arthritis; Negative Musculoskeletal Disorders ENT: Positive Cataracts, Glaucoma and Blind (blind right side) ENDOCRINE: Negative Endocrine Disorders, Diabetes Mellitus Type 1 or Diabetes Mellitus Type 2 HEMATOLOGIC: Negative Blood Disorders or Sickle Cell Disease PSYCHO/SOCIAL: Positive Depression and Anxiety (TAKES MEDS) OTHER HISTORY: Positive Hospitalization, Chicken Pox, Measles and Mumps; Negative Falls, Blood Transfusions, Blood Transfusion Reaction, Anesthesia Reactions or Cancer Family History FAMILY HISTORY: Positive Family Respiratory Disorders, Family Cardiac Disorders and Family Cancer Surgical History SURGICAL: Positive Cardiac Surgery, Open Heart Surgery, Coronary Artery Bypass Graft, Coronary Stent, Angiogram, Abdominal Surgery and Hysterectomy Social History SMOKING STATUS: Never smoker SUBSTANCE USE: does not use ED Exam Narrative Physical exam: As noted in HPI. Course Course Course Narrative: CXR is ordered for determining the etiology of shortness of breath. Quality Measures none Orders Category Date Time Status Bedside COVID-19 Antigen Test NOW Care 09/11/24 17:30 Active Bedside Influenza A&B Antigen Test NOW Care 09/11/24 18:40 Completed EKG (ED ONLY) *Do not use* NOW Care 09/11/24 17:30 Completed EKG (ED Only) Stat Exams 09/11/24 17:30 Draft XR chest 1V portable Stat Exams 09/11/24 17:30 Completed cefTRIAXone [Rocephin] 1,000 mg Med 09/11/24 18:41 Discontinued Lidocaine 1% 20 ml [Xylocaine 1% 20 ML] 2.1 ml IM X1 Vital Signs Vital signs: Vital Signs Temperature 98.5 F 09/11/24 17:25 Pulse Rate 64 09/11/24 17:25 Respiratory Rate 16 09/11/24 17:25 Blood Pressure 167/96 H 09/11/24 17:25 Pulse Oximetry (%) 95 09/11/24 17:25 Oxygen Delivery Method Room Air 09/11/24 17:25 Upper Respiratory Infection MDM Narrative MDM Narrative:: Scribe Attestation: 09/11/24 Monet Agarwal am scribing for and in the presence of Dr. Chandler. 84yo female brought in by her daughter presents to the ED for a chief complaint of shortness of breath x 3 days. Daughter states the patient has been short of breath and generally weak for the last 3 days, reporting she has not been acting like herself . Patient reports associated swelling to both of her feet and subjective fever. Patient denies any cough, nausea, vomiting or any other associated symptoms. No other complaints reported. Patient data External records reviewed:: [facility] previous records (Per chart review, patient was seen here on 05/06/24 for bronchitis.) Clinical information provided by:: patient and family (daughter) Social determinants that could affect healthcare access:: none Patient has the following chronic illnesses:: CHF, HTN, HLD How is presenting disease/condition affected by chronic disease/condition?: uneffected by Evaluation data The following diagnostics were reviewed and interpreted by me:: radiology exam(s) and EKG tracing(s) (My interpretation of the EKG is: Sinus rhythm (64 bpm) with nonspecific ST-T changes. Ramón Chandler MD) Lab and/or radiology exams considered but not ordered:: none Interpretation Summary: I reviewed all diagnostic test results. My interpretation of the EKG is sinus rhythm with no acute ST?T changes. My interpretation of the chest x-ray is bibasilar and lingular segment left upper lobe pneumonia. Bedside Influenza swab is positive. Bedside COVID is negative. Medications / Prescriptions Medications or Prescriptions considered but not ordered:: none Medication administrations:: Medication Administration History Discontinued Medications Ceftriaxone Sodium 1,000 mg/ (Lidocaine HCl 2.1 ml) 0 mg IM X1 ONE Stop: 09/11/24 18:42 Rocephin Consultations Consultation(s) initiated? (list below): No Diagnosis Upper Respiratory Differential Diagnosis: upper respiratory infection, viral infection, bronchitis, influenza and other (COVID, pneumonia) Most likely diagnosis given after review of the tests above:: Pneumonia, Influenza Admission Indicated Admission indicated?: not indicated Explain why admission is indicated or not indicated:: With no severe illness, there was no indication for admission. Admission Request Was there a request for admission?: No Disposition Plan Disposition Plan: Discharge Discharge Attestation Discharge Attestation: The patient and all family members were given an opportunity to ask questions and understood the discharge instructions. Discharge instructions specifically effects, indications for sooner follow up or return to the emergency department, and the expected course of current diagnosis. Patient condition: Stable Discharge Plan Plan Patient Disposition: HOME (Self Care) Prescriptions/Referrals Prescriptions/Med Rec: New prednisone 20 mg tablet 20 mg PO QDAY 3 Days Qty: 3 0RF Taper: Prednisone Taper 20 mg DAILY for 2 Days and 0 Hour 10 mg DAILY for 2 Days and 0 Hour 5 mg DAILY for 7 Days and 0 Hour azithromycin [Zithromax TRI-ANNE] 500 mg tablet 500 mg PO QDAY 3 Days Qty: 3 0RF oseltamivir [Tamiflu] 75 mg capsule 75 mg PO BID 5 Days Qty: 10 0RF No Action levofloxacin 500 mg tablet 500 mg PO QDAY Qty: 7 0RF albuterol sulfate 90 mcg/actuation HFA aerosol inhaler 1 inh inhalation QID PRN (Reason: shortness of breath or wheezing) Qty: 8.5 0RF albuterol sulfate [Ventolin HFA] 90 mcg/actuation HFA aerosol inhaler 2 puff inhalation Q6H PRN (Reason: shortness of breath or wheezing) Qty: 8.5 0RF pravastatin 20 mg Tablet 20 mg PO QDAY travoprost 0.004 % Drops 1 drp OPHTHALMIC (EYE) QPM dorzolamide-timolol 22.3-6.8 mg/mL Drops 1 drp OPHTHALMIC (EYE) BID losartan 50 mg tablet 50 mg PO QDAY Qty: 30 0RF Rx Instructions: Hold if SBP drops below 100 and 60 mmHg meloxicam 7.5 mg tablet 7.5 mg PO QDAY PRN (Reason: pain) Qty: 7 0RF Referrals: Jose Padilla MD [Primary Care Provider] - In 1 week Problem List Clinical Impression: Pneumonia, Influenza Patient/Caregiver Discharge Instructions Discharge Activity: activity as tolerated Education Materials: ED Influenza (Adult), ED Pneumonia (Adult) Additional Instructions: Discharge instructions from Dr. Chandler: --No physical exertion for 3 days to help rest the lungs. ?No smoking or exposure to smoking or pets or dust or cold or humidity. --Zithromax and Tamiflu to kill the germs causing the influenza pneumonia. --Prednisone to help decrease the swelling in the airways. --Eat regular nutritious meals. For good hydration, increase oral fluid and maintain clear urine. If dark or yellow, increase oral fluid. --See a private doctor on 09/16/2024 if not completely better. --Seek immediate medical care with worsening or with any concerns. Instrucciones de bob del Dr. Chandler: -- No realice esfuerzo f?sico arturo 3 d?as para ayudar a los pulmones a descansar. -- No fume ni se exponga al humo, a las mascotas, al polvo, al fr?o ni a la humedad. -- Zitromax y Tamiflu para eliminar los g?rmenes que causan la neumon?a por influenza. -- Prednisona para ayudar a disminuir la inflamaci?n de las v?as respiratorias. -- Consuma comidas nutritivas con regularidad. Para linda buena hidrataci?n, aumente la ingesta de l?quidos y mantenga la orina bill. Si la orina es oscura o amarilla, aumente la ingesta de l?quidos. -- Consulte a un m?dico particular el 16/09/2024 si no mejora por completo. -- Busque atenci?n m?dica inmediata si la condici?n empeora o tiene alguna inquietud. Print Language: Azeri Stand Alone Forms: Nikki Award Info., Patient Portal Info Letter
[2024-09-11] MEDS: cefTRIAXone 1,000 MG, LIDOCAINE 1% 20 ML 2.1 ML IM (18:59)
== END 2024-09-11 19:05 | disposition home or self-care (01) ==
PROVIDERS: Emergency Provider Emergency Medicine; PCP Family Medicine
DX: J11.00 Influenza due to unidentified influenza virus with unspecified type of pneumonia (principal)
CPT/HCPCS: 71045; 80053; 84484; 85025; 87400; 87502; 87811; 93005; 96372; 99283; J0696; J3490

== ENCOUNTER 2025-03-19 17:23 | Observation (INO) | payer MEDICAID, SELFPAY ==
[2025-03-19 17:24] VITALS: BMI 32.7
--- NOTE | 2025-03-19 17:28 | EKG_ITS ---
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
[2025-03-19 17:47] VITALS: BP 141/85; PULSE 92; RESP 20; TEMP 36.7; O2SAT 94
--- NOTE | 2025-03-19 18:05 | XR_ITS ---
EXAMINATION: PA chest single view TECHNIQUE: Upright PA chest single view Date and time: March 19, 2025, 1815 hours, comparison September 11, 2024 INDICATIONS: Onset chest pain today. FINDINGS: Fairly diffuse areas of bilateral pneumonia Subsegmental atelectasis both lung bases Mild prominence left ventricle Mild elevation right hemidiaphragm IMPRESSION: Significant bilateral pneumonia
--- NOTE | 2025-03-19 18:06 | EDRME_ITS ---
Rapid Medical Screening Exam [facility] Arrival date/time: 03/19/25 17:23 This is an 85-year-old female that comes into the emergency room with complaints of chest pain and shortness of breath. Patient states that she has a history of high blood pressure and hyperlipidemia. Patient reports that she recently had a fall and hit the back of her head approximately a week ago and was taken to [facility]. Patient states that they scanned her head and her neck and also her back and nothing came back fractured. Patient also states that she was recently diagnosed with pneumonia and is now done with antibiotics but still not feeling better. Patient also states that she has not had a bowel movement in 6 days. I have greeted and performed a focused initial assessment of this patient. Initial appropriate labs ordered at this time. A comprehensive ED assessment and evaluation of the patient and analysis of all test and completion of medical decision making process will be conducted by additional ED provider. Chief Complaint: Chest Pain Time Seen by Provider: 03/19/25 18:07 Vital signs: Vital Signs Temperature 98.1 F 03/19/25 17:47 Pulse Rate 92 03/19/25 17:47 Respiratory Rate 20 03/19/25 17:47 Blood Pressure 141/85 H 03/19/25 17:47 Pulse Oximetry (%) 94 L 03/19/25 17:47 Oxygen Delivery Method Room Air 03/19/25 17:47 Exam: Alert and oriented, breathing even and unlabored, skin warm and dry Clinical Impression: chest pain
--- NOTE | 2025-03-19 18:08 | XR_ITS ---
Examination: Abdomen AP single view Technique: AP portable supine abdomen, single view Exam date and time: March 19, 2025, 1813 hours INDICATIONS: Abdominal pain today. FINDINGS: Moderate air and stool throughout the colon Minimal small bowel ileus No obstruction No free air Suspicious for small gallstones IMPRESSION: Nonobstructive bowel gas pattern Consider hepatobiliary sonography follow-up
[2025-03-19 18:22] LABS: Basophils # (Auto) 0.0 Thou/mm3 (0.0-0.2); Basophils % (Auto) 0 % (0-2.5); Eosinophils # (Auto) 0.2 Thou/mm3 (0.0-0.5); Eosinophils % (Auto) 2 % (0-10); Hematocrit 37.2 % (36.0-46.0); Hemoglobin 12.2 g/dL (12.0-16.0); Immature Granulocytes Auto 0.03 Thou/mm3 (0.00-0.00); Lymphocytes # (Auto) 2.5 Thou/mm3 (1.0-4.8); Lymphocytes % (Auto) 30 % (10-50); Mean Corpuscular HGB Conc 32.8 g/dl (31.0-37.0); Mean Corpuscular Hemoglobin 29.6 pg (25.0-35.0); Mean Corpuscular Volume 90 fL (80-100); Monocytes # (Auto) 0.4 Thou/mm3 (0.0-0.8); Monocytes % (Auto) 4 % (0-12); Neutrophils # (Auto) 5.3 Thou/mm3 (1.8-7.7); Neutrophils % (Auto) 63 % (37-80); Nucleated Red Blood Cell # 0.00 Thou/mm3 (0.00-0.00); Nucleated Red Blood Cell % 0 /100 WBC (0); Platelet Count 358 Thou/mm3 (140-440); RDW Standard Deviation 43.5 fL (36.4-46.3); Red Blood Count 4.12 Miln/mm3 (4.00-5.20); White Blood Count 8.4 Thou/mm3 (3.6-11.0)
[2025-03-19 18:39] LABS: B-Type Natriuretic Peptide 87 pg/mL (0-100)
[2025-03-19 18:44] LABS: Alanine Aminotransferase 15 U/L (10-49); Albumin, Serum 5.0 gm/dL (3.4-4.8); Albumin/Globulin Ratio 1.5 (1.2-2.2); Alkaline Phosphatase 124 U/L (46-116); Anion Gap 11 (7-16); Aspartate Amino Transferase < 8 U/L (0-34); BUN/Creatinine Ratio 13 Ratio (12-20); Bilirubin,Total 0.5 mg/dL (0.3-1.2); Blood Urea Nitrogen 10 mg/dL (9-23); Calcium 10.7 mg/dL (8.3-10.6); Calcium (Corrected) 10.7 mg/dL (8.5-10.1); Carbon Dioxide 23.5 mMol/L (20.0-31.0); Chloride 104 mMol/L (98-107); Creatinine (Component) 0.8 mg/dL (0.6-1.3); Estimated Creatinine Clearance 50.8 mL/min (>60); Globulin 3.3 gm/dL (2.3-3.5); Glucose 103 mg/dL (74-106); Osmolality,Calculated 274 (275-295); Potassium 3.8 mMol/L (3.4-5.1); Sodium 138 mMol/L (136-145); Total Protein 8.3 gm/dL (5.7-8.2); Troponin I < 0.020 ng/mL (0.0-0.045); eGFR > 60 See Note
--- NOTE | 2025-03-19 19:25 | PD.EDCHEST ---
ED Chest Pain RME/HPI General Chief Complaint: Chest Pain Stated Complaint: CHEST PAIN X2 DAYS, CONSTIPATION X6 DAYS Time Seen by Provider: 03/19/25 18:07 Arrival date/time: 03/19/25 17:23 Limitations: no limitations RME / HPI RME / HPI narrative: 03/19/25 17:23 This is an 85-year-old female that comes into the emergency room with complaints of chest pain and shortness of breath. Patient states that she has a history of high blood pressure and hyperlipidemia. Patient reports that she recently had a fall and hit the back of her head approximately a week ago and was taken to [facility]. Patient states that they scanned her head and her neck and also her back and nothing came back fractured. Patient also states that she was recently diagnosed with pneumonia and is now done with antibiotics but still not feeling better. Patient also states that she has not had a bowel movement in 6 days. I have greeted and performed a focused initial assessment of this patient. Initial appropriate labs ordered at this time. A comprehensive ED assessment and evaluation of the patient and analysis of all test and completion of medical decision making process will be conducted by additional ED provider. Dr. Lazcano's Main ED Evaluation: 84yo female with a history of CHF, HTN, HLD presents to the ED for a chief complaint of chest pain x 2-3 days. Daughter states the patient was diagnosed with pneumonia last week in [place] and has been taking her antibiotics for the last 4 days. Patient reports her chest pain radiates to her back. Patient reports associated generalized body aches, headache, and constipation. Patient has not had a bowel movement in 6 days. Daughter notes the patient has had a decreased appetite and has been more generally weak than normal. Denies any other associated symptoms. NKA. Impression: Related Data Home Medications ?Medication ?Instructions ?Recorded ?Confirmed dorzolamide 22.3 mg-timolol 6.8 1 drp ophthalmic (eye) BID 04/13/24 04/13/24 mg/mL eye drops pravastatin 20 mg tablet 20 mg PO QDAY 04/13/24 04/13/24 travoprost 0.004 % eye drops 1 drp ophthalmic (eye) QPM 12/25/24 12/25/24 Previous Rx's ?Medication ?Instructions ?Recorded albuterol sulfate 90 mcg/actuation 2 puff inhalation Q6H PRN 03/29/23 aerosol inhaler (Ventolin HFA) shortness of breath or wheezing #8.5 grams losartan 50 mg tablet 50 mg PO QDAY #30 tabs 04/15/24 meloxicam 7.5 mg tablet 7.5 mg PO QDAY PRN pain #7 tabs 04/15/24 albuterol sulfate 90 mcg/actuation 1 inh inhalation QID PRN shortness 05/07/24 aerosol inhaler of breath or wheezing #8.5 grams levofloxacin 500 mg tablet 500 mg PO QDAY #7 tabs 05/07/24 Allergies Allergy/AdvReac Type Severity Reaction Status Date / Time No Known Allergies Allergy Verified 03/19/25 17:27 Review of Systems Review of Systems Systems Reviewed: All systems reviewed, normal except as documented Past Medical History Past Medical History NEUROLOGIC: Positive Seizures (30 years ago) and Migraine; Negative Neurological Disorders CARDIAC: Positive Cardiac Disorders, Hypercholesterolemia, Congestive Heart Failure, Edema, Deep Vein Thrombosis, Hypertension and Hypotension RESPIRATORY: Positive Bronchitis, Pneumonia and Pulmonary Embolism; Negative Chronic Obstructive Pulmonary Disease (COPD) or Asthma GASTROINTESTINAL: Positive Gastrointestinal Disorders and Gastroesophageal Reflux Disease; Negative Hepatitis GENITOURINARY: Positive Genitourinary Disorders (Overreactive bladder.); Negative Renal Disease REPRODUCTIVE: Positive Previous Pregnancies MUSCULOSKELETAL: Positive Arthritis; Negative Musculoskeletal Disorders ENT: Positive Cataracts, Glaucoma and Blind (blind right side) ENDOCRINE: Negative Endocrine Disorders, Diabetes Mellitus Type 1 or Diabetes Mellitus Type 2 HEMATOLOGIC: Negative Blood Disorders or Sickle Cell Disease PSYCHO/SOCIAL: Positive Depression and Anxiety (TAKES MEDS) OTHER HISTORY: Positive Hospitalization, Chicken Pox, Measles and Mumps; Negative Falls, Blood Transfusions, Blood Transfusion Reaction, Anesthesia Reactions or Cancer Family History FAMILY HISTORY: Positive Family Respiratory Disorders, Family Cardiac Disorders and Family Cancer Surgical History SURGICAL: Positive Cardiac Surgery, Open Heart Surgery, Coronary Artery Bypass Graft, Coronary Stent, Angiogram, Abdominal Surgery and Hysterectomy Social History SMOKING STATUS: Never smoker SUBSTANCE USE: does not use ED Exam General Limitations: Present no limitations General appearance: Present alert, in no apparent distress and other (appears fatigued) Head Head exam: Present atraumatic Eye Eye exam: Present normal appearance, PERRL and EOMI ENT ENT exam: Present normal exam, normal oropharynx and mucous membranes moist Neck Neck exam: Present normal inspection, full ROM and trachea midline Chest Chest inspection: Present normal inspection and symmetric chest wall rise Respiratory Respiratory exam: Present other (decreased breath sounds bilaterally) Cardiovascular Cardiovascular exam: Present regular rate, normal rhythm and normal heart sounds Abdominal Exam Abdominal exam: Present soft; Absent distention or tenderness Extremities Exam Extremities exam: Present pedal edema (2+ pitting edema bilaterally) Back Exam Back exam: Present normal inspection and full ROM; Absent CVA tenderness (R) or CVA tenderness (L) Neurological Exam Neurological exam: Present alert, oriented X3 and CN II-XII intact Psychiatric Psychiatric exam: Present normal affect and normal mood Skin Skin exam: Present warm, dry, intact and pallor (mild) Course Course Course Narrative: CXR is ordered for determining the etiology of chest pain. Quality Measures none Orders Category Date Time Status COVID-19 Screening Questionnaire NOW Care 03/19/25 22:[address] Screening NOW Care 03/19/25 20:49 Active Decision to Admit X1 Care 03/19/25 22:40 Completed EKG (ED ONLY) *Do not use* NOW Care 03/19/25 17:28 Completed IV [Insert IV] NOW Care 03/19/25 20:[address] angio chest Stat Exams 03/19/25 20:49 Completed EKG (ED Only) Stat Exams 03/19/25 17:28 Draft KUB [XR abdomen 1V] Stat Exams 03/19/25 18:08 Completed XR chest 1V Stat Exams 03/19/25 18:05 Completed BNP [B-Type Natriuretic Peptide] Stat Lab 03/19/25 18:12 Completed CBC Stat Lab 03/19/25 18:12 Completed Comprehensive Metabolic Panel Stat Lab 03/19/25 18:12 Completed Procalcitonin Stat Lab 03/19/25 18:12 Completed Troponin I Stat Lab 03/19/25 18:12 Completed Urinalysis, C/S if Indicated Stat Lab 03/19/25 18:06 Ordered Albuterol/Ipratr Rt Tari [Duoneb Rt Tari] Med 03/19/25 23:07 Discontinued 3 ml INH X1 ONE Vital Signs Vital signs: Vital Signs Temperature 98.1 F 03/19/25 17:47 Pulse Rate 92 03/19/25 17:47 Respiratory Rate 20 03/19/25 17:47 Blood Pressure 141/85 H 03/19/25 17:47 Pulse Oximetry (%) 94 L 03/19/25 17:47 Oxygen Delivery Method Room Air 03/19/25 17:47 Chest Pain MDM Narrative MDM Narrative:: Scribe Attestation: 03/19/25 - Monet Disla, am scribing for and in the presence of Dr. Lazcano. This patient presents with worsening dyspnea over the last 10 days and recently diagnosed with pneumonia. The daughter states she took her 4-day of antibiotics but is not getting better. She does not want to eat she does not want to get out of bed. I feel there is a partial aspect of depression however when the patient got up to go to the bathroom she became much more short of breath and it was difficult for her to even get to and from the bathroom. Patient has increasing pedal edema. Suspect that she has worsening congestive heart failure. Last echo was over 3 years ago. Patient is treated for possible worsening bilateral pneumonia but does not meet sepsis criteria at this time. Labs were reviewed and interpreted by me. Otherwise white count is 8.4 normal, hemoglobin is 12, platelets are 358. No anemia, thrombocytopenia, or leukocytosis. BMP is reviewed interpreted by me. Otherwise electrolytes are essentially normal. BUN/creatinine is 10/0 0.8. Normal total bili. Chest x-ray with bilateral pneumonia versus increased vascular markings. Radiology interpretation is reviewed. No ST elevations or depressions. Discussed with the hospitalist on-call who agrees to admit the patient. Patient data External records reviewed:: [facility] previous records (Per chart review, patient was seen here on 09/11/24 for Influenza.) Clinical information provided by:: patient and family Social determinants that could affect healthcare access:: none Patient has the following chronic illnesses:: CHF, HTN, HLD How is presenting disease/condition affected by chronic disease/condition?: exacerbated by Evaluation data The following diagnostics were reviewed and interpreted by me:: lab results, radiology exam(s) and EKG tracing(s) Lab and/or radiology exams considered but not ordered:: none Interpretation Summary: WBC 8.4, Creatinine 0.8, Troponin normal, BNP 87. EKG done at 1743, sinus rhythm, rate of 94, PVCs, LBBB, no scarbosa criteria, QTc: 460, according to my interpretation. [facility] Report Signed Patient: SHIREEN COLLINS [facility]. Record#: [id number] Birthdate: 1940 Age/Sex: 85 / F Location: [facility] Attending Dr: Ordering Physician: Becky Riley NP Date of Service: 03/19/25 Procedure(s): XR chest 1V Accession Number(s): [id number] cc: Jose Padilla MD; Luis Carlos Mendoza MD; Becky Riley NP~ EXAMINATION: PA chest single view TECHNIQUE: Upright PA chest single view Date and time: March 19, 2025, 1815 hours, comparison September 11, 2024 INDICATIONS: Onset chest pain today. FINDINGS: Fairly diffuse areas of bilateral pneumonia Subsegmental atelectasis both lung bases Mild prominence left ventricle Mild elevation right hemidiaphragm IMPRESSION: Significant bilateral pneumonia Dictated By: Luis Carlos Mendoza MD Signed By: <Electronically signed by Luis Carlos Mendoza MD in OV> 03/19/25 1844 [facility] Report Signed Patient: SHIREEN COLLINS [facility]. Record#: [id number] Birthdate: 1940 Age/Sex: 85 / F Location: [facility] Attending Dr: Ordering Physician: Becky Riley NP Date of Service: 03/19/25 Procedure(s): XR abdomen 1V Accession Number(s): [id number] cc: Jose Padilla MD; Luis Carlos Mendoza MD; Becky Riley NP~ Examination: Abdomen AP single view Technique: AP portable supine abdomen, single view Exam date and time: March 19, 2025, 1813 hours INDICATIONS: Abdominal pain today. FINDINGS: Moderate air and stool throughout the colon Minimal small bowel ileus No obstruction No free air Suspicious for small gallstones IMPRESSION: Nonobstructive bowel gas pattern Consider hepatobiliary sonography follow-up Dictated By: Luis Carlos Mendoza MD Signed By: <Electronically signed by Luis Carlos Mendoza MD in OV> 03/19/25 1845 [facility] Report Signed Patient: SHIREEN COLLINS Record#: [id number] Birthdate: 1940 Age/Sex: 85 / F Location: [facility] Attending Dr: Ordering Physician: Sola Garcia MD Date of Service: 03/19/25 Procedure(s): CT angio chest Accession Number(s): [id number] cc: Jose Padilla MD; Luis Carlos Mendoza MD; Sola Garcia MD~ Examination: CTA chest with intravenous contrast 2-D reconstructions 3-D reconstructions, vascular Date and time of exam: March 19, 2025, 2134 hours INDICATIONS: Chest pain beginning 2 days ago CTDI: vol (mGy) 8.42 DLP: (mGycm) 316 Technique: Multiple axial sections of the thorax have been obtained. 3 mm slice thickness, from below the hemidiaphragms to above the apices of the lungs. Mediastinal and lung density settings have been obtained. 2-D sagittal and coronal reconstructions. 3-D angiographic renderings, 3-D volume renderings, 3D post processing, vascular maximum intensity projections obtained. Contrast administered is 100 cc Isovue-370. Low dose protocols were performed. One or more of the following dose reduction techniques were used; automated exposure control, adjustment of the mA and/or KV according to patient size, use of iterative reconstruction technique. Findings: Thyromegaly with bilateral thyroid nodules, the largest in the right lobe 12 mm Small high periaortic and preaortic lymph nodes No thoracic aortic aneurysmal dilatation or dissection Pulmonary artery segments are not enlarged, no pulmonary artery emboli Numerous bilateral pulmonary nodules, the largest 19 mm in the right upper lobe Soft opacities in both lungs consistent with pneumonia Liver is irregular in contour, no gallstones Partial visualization large left renal cyst, 7 cm, smaller right renal cyst No pancreatic mass IMPRESSION: Thyromegaly with thyroid nodules, consider dedicated thyroid sonography follow-up Negative for pulmonary artery emboli Nonspecific mediastinal lymphadenopathy Numerous bilateral pulmonary nodules, differential would include infectious and neoplastic nodules Soft opacities in both lungs consistent with pneumonia Dictated By: Luis Carlos Mendoza MD Signed By: <Electronically signed by Luis Carlos Mendoza MD in OV> 03/19/25 3311 Medications / Prescriptions Medications or Prescriptions considered but not ordered:: none Medication administrations:: Medication Administration History Acetaminophen (Acetaminophen 325 Mg Tablet) 650 mg PO Q6H PRN PRN Reason: Fever >100.4 or pain 1-3 Stop: 04/18/25 23:30 Enoxaparin Sodium (Enoxaparin Sod Inj 40 Mg/0.4 Ml Syringe) 40 mg SC QDAY NANNETTE Stop: 04/03/25 08:59 Furosemide (Furosemide Inj 10 Mg/Ml 4ml Vial) 40 mg IVP DAILY NANNETTE Stop: 04/19/25 08:59 Metoclopramide HCl (Metoclopramide Inj 5 Mg/Ml Vial 2 Ml) 10 mg IVP Q6H PRN; Protocol PRN Reason: NAUSEA OR VOMITING Stop: 04/18/25 23:35 Pantoprazole Sodium (Pantoprazole Inj 40 Mg Vial) 40 mg IVP QDAY NANNETTE Stop: 04/19/25 08:59 Pantoprazole Sodium (Pantoprazole 40 Mg Tablet) 40 mg PO QDAY NANNETTE Stop: 04/19/25 08:59 Sennosides (Senna Tablet) 1 tab PO QDAY NANNETTE; Protocol Stop: 04/19/25 08:59 Discontinued Medications Albuterol/Ipratropium (Albuterol/Ipratropium (Duoneb) Rt Tari 3 Ml Nebu) 3 ml INH X1 ONE Stop: 03/19/25 23:08 Last Admin: 03/19/25 23:22 Dose: 3 ml Documented By: GB see above, if any Consultations Consultation(s) initiated? (list below): Yes Consultation #1 (Physician, Specialty, Details): Discussed case with the resident physician, attending Dr. Love from Hospitalist service regarding admission. Discussed patients ED course, exam findings, labs, and radiology results. The Hospitalist will evaluate the patient for admission. Time: 22:50 Diagnosis Chest Pain Differential Diagnosis: other (PE, dehydration, influenza, electrolyte abnormality, failed outpatient pneumonia, failure to thrive) Most likely diagnosis given after review of the tests above:: acute CHF exacerbation, failed outpatient pneumonia, hypoxia, bilateral pneumonia, dyspnea Admission Indicated Admission indicated?: indicated Admission Request Was there a request for admission?: Yes Admission Attestation Admission request attestation: Discussed case with [] from Hospitalist service regarding admission. Discussed patients ED course, exam findings, labs, and radiology results. The Hospitalist [agrees,declines] to accept the patient for admission. Disposition Plan Disposition Plan: Admit Discharge Plan Plan Patient Disposition: Admit Acute Care w/in Hospital Problem List Clinical Impression: Acute exacerbation of CHF (congestive heart failure), Bilateral pneumonia, Hypoxia, Dyspnea
[2025-03-19 19:30] VITALS: BP 180/85; PULSE 93; RESP 18; TEMP 36.6; O2SAT 97
--- NOTE | 2025-03-19 20:49 | XR_ITS ---
Examination: CTA chest with intravenous contrast 2-D reconstructions 3-D reconstructions, vascular Date and time of exam: March 19, 2025, 2134 hours INDICATIONS: Chest pain beginning 2 days ago CTDI: vol (mGy) 8.42 DLP: (mGycm) 316 Technique: Multiple axial sections of the thorax have been obtained. 3 mm slice thickness, from below the hemidiaphragms to above the apices of the lungs. Mediastinal and lung density settings have been obtained. 2-D sagittal and coronal reconstructions. 3-D angiographic renderings, 3-D volume renderings, 3D post processing, vascular maximum intensity projections obtained. Contrast administered is 100 cc Isovue-370. Low dose protocols were performed. One or more of the following dose reduction techniques were used; automated exposure control, adjustment of the mA and/or KV according to patient size, use of iterative reconstruction technique. Findings: Thyromegaly with bilateral thyroid nodules, the largest in the right lobe 12 mm Small high periaortic and preaortic lymph nodes No thoracic aortic aneurysmal dilatation or dissection Pulmonary artery segments are not enlarged, no pulmonary artery emboli Numerous bilateral pulmonary nodules, the largest 19 mm in the right upper lobe Soft opacities in both lungs consistent with pneumonia Liver is irregular in contour, no gallstones Partial visualization large left renal cyst, 7 cm, smaller right renal cyst No pancreatic mass IMPRESSION: Thyromegaly with thyroid nodules, consider dedicated thyroid sonography follow-up Negative for pulmonary artery emboli Nonspecific mediastinal lymphadenopathy Numerous bilateral pulmonary nodules, differential would include infectious and neoplastic nodules Soft opacities in both lungs consistent with pneumonia
[2025-03-19 22:16] VITALS: BP 137/81; PULSE 80; RESP 18; O2SAT 95
[2025-03-19 23:04] VITALS: O2SAT 93
[2025-03-19] MEDS: ALBUTEROL/IPRATROPIUM (Duoneb) RT SOL 3 ML NEBU INH (23:22)
[2025-03-19 23:25] VITALS: PULSE 88; RESP 20; O2SAT 100
[2025-03-19 23:27] VITALS: PULSE 88; RESP 20; RESP 93
[2025-03-19 23:42] LABS: Procalcitonin 0.06 ng/ml (0.0-0.49)
[2025-03-20] VITALS (13 sets, daily range): BP systolic 100–142; BP diastolic 56–85; PULSE 65–88; RESP 16–92; TEMP 36.1–36.6; O2SAT 93–98; BMI 31.8
[2025-03-20 00:08] LABS: Base Excess 1 (-3-3); HCO3 25 mEq/L (20-26); Inspired Oxygen, FIO2 21 %; O2 Saturation 91 % (91-98); PCO2 38 mmHg (32.0-48.0); pH, Arterial 7.42 (7.35-7.45)
[2025-03-20 00:13] LABS: Allen Test Performed/OK; PO2 61 mmHg (83-108); Puncture Site Left Radial
--- NOTE | 2025-03-20 00:14 | ESHP_ITS ---
Documentation for date of: 03/20/25 HPI History of Present Illness Chief complaint: not feeling good History of present illness: Rajni Dunbar is 85 yr female with PMH of hypertension, hyperlipidemia, CHF HFpEF 50 to 55% (01/07/2023), on 2L o2, history of PE, GERD, and history of overactive bladder presenting to ED with daughter due to worsening weakness, SOB, and LE swelling since past 1 week. Patient was seen at [facility] 1 week ago due to similiar symptoms. Was discharged with Zpak course for treatment of pneumonia. Since then, daughter as noticed decreased appetite and lethargy. Stating that patient has required increase amount of oxygen from her baseline. Using it during the day as well. Endorses constipation of 1 week. Attempting to relieve constipation with PO stool softner. Also has decreased appetite, SOB when walking short distances. Denies any PND, chest pain, worsening cough, no sputum, no fever, no dysuria. Patient follows with quality control engineering technician in [place]. Last appt was about 1 month ago with next apt coming up on the . Daughter does not recall any changes made to medications and stated that an echo was completed at that time. But unware of results yet. In ED, BP 180/85, no tachycardia, no tachypnea, no fever. Saturating well on room air. CBC and CMP unremarkable. No leukocytosis or evevation in procal. CXR read as b/l pna, CTA chest Thyromegaly with thyroid nodules, negative for pulmonary artery emboli, mediastinal lymphadenopathy, numerous bilateral pulmonary nodules, opacities in both lungs. EKG showed LBBB, rate 94, qtc 512. Troponins negative, covid negative. Patient admitted for CHF exacerbation and constipation. PMH: as noted above PSH: hernia repair, hysterectomy Medications: Losartan 50 mg daily, pravastatin 20 mg, amlodipine 10 mg, furosemide 20 mg, omeprazole 20 mg, metoprolol tartrate 50 mg twice daily (med rec pending) Social: denies smoking, denies drinking, live with daughter Allergies: NKDA Review of Systems Review of Systems Systems Reviewed: All systems reviewed, normal except as documented Exam Vital Signs Temp Pulse Resp BP Pulse Ox O2 Del Method 97.9 F 88 20 137/81 H 100 Room Air 03/19/25 19:30 03/19/25 23:27 03/19/25 23:27 03/19/25 22:16 03/19/25 23:25 03/19/25 23:04 Narrative Exam General: Alert and oriented x3. No acute distress, cooperative HEENT: NCAT, No JVD noted. Mucosa moist. Pupils are equal and reactive to light bilaterally Cardiovascular: Normal S1 and S2. Regular rate and rhythm. Respiratory: Lungs are clear to auscultation bilaterally. No wheezing or crackles heard. Abdomen: Soft, nontender, not distended, normal bowel sounds. Skin: Warm to touch, dry, no rashes noted Musculoskeletal: No gross injuries. Able to move all 4 extremities. b/L +2 pitting edema Neuro: Alert and oriented x3. No focal neuro deficits. Psych: Normal affect and mood Results: Labs 03/20/25 04:43 03/19/25 18:12 Labs: Short CBC 03/19/25 Range/Units 18:12 WBC 8.4 (3.6-11.0) Thou/mm3 Hgb 12.2 (12.0-16.0) g/dL Hct 37.2 (36.0-46.0) % Plt Count 358 (140-440) Thou/mm3 BMP 03/19/25 18:12 Sodium 138 Potassium 3.8 Chloride 104 Carbon Dioxide 23.5 BUN 10 Creatinine 0.8 Glucose 103 Calcium 10.7 H Cardiac Enzymes 03/19/25 Range/Units 18:12 Troponin I < 0.020 (0.0-0.045) ng/mL Liver Function 03/19/25 Range/Units 18:12 Total Bilirubin 0.5 (0.3-1.2) mg/dL AST < 8 (0-34) U/L ALT 15 (10-49) U/L Alkaline Phosphatase 124 H (46-116) U/L Albumin 5.0 H (3.4-4.8) gm/dL ABG Interpretation ABG results: 03/19/25 00:00 ABG pH 7.42 ABG pCO2 38 ABG pO2 61 L ABG HCO3 25 ABG O2 Saturation 91 ABG Base Excess 1 Quality Measures Quality Measures VTE prophylaxis Advance care planning discussed with:: patient Medications Home Medications and Allergies Home Medications ?Medication ?Instructions ?Recorded ?Confirmed ?Type dorzolamide 22.3 mg-timolol 6.8 1 drp ophthalmic (eye) BID 04/13/24 03/20/25 History mg/mL eye drops pravastatin 20 mg tablet 20 mg PO HS 04/13/24 5 History amlodipine 10 mg tablet 10 mg PO QDAY 03/20/2503/20 History furosemide 20 mg tablet 20 mg PO QDAY 03/20/2503/20 History latanoprost 0.005 % eye drops 1 drp Left eye HS 03/20/25 History omeprazole 20 mg capsule,delayed 20 mg PO QDAY 5 03/20/25 History release Allergies Allergy/AdvReac Type Severity Reaction Status Date / Time No Known Allergies Allergy Verified 03/19/25 17:27 Visit Medications Acetaminophen (Acetaminophen 325 Mg Tablet) 650 mg PO Q6H PRN PRN Reason: Fever >100.4 or pain 1-3 Stop: 04/18/25 23:30 Enoxaparin Sodium (Enoxaparin Sod Inj 40 Mg/0.4 Ml Syringe) 40 mg SC QDAY NANNETTE Stop: 04/03/25 08:59 Furosemide (Furosemide Inj 10 Mg/Ml 4ml Vial) 40 mg IVP DAILY NANNETTE Stop: 04/19/25 08:59 Metoclopramide HCl (Metoclopramide Inj 5 Mg/Ml Vial 2 Ml) 10 mg IVP Q6H PRN; Protocol PRN Reason: NAUSEA OR VOMITING Stop: 04/18/25 23:35 Pantoprazole Sodium (Pantoprazole Inj 40 Mg Vial) 40 mg IVP QDAY NANNETTE Stop: 04/19/25 08:59 Pantoprazole Sodium (Pantoprazole 40 Mg Tablet) 40 mg PO QDAY NANNETTE Stop: 04/19/25 08:59 Sennosides (Senna Tablet) 1 tab PO QDAY NANNETTE; Protocol Stop: 04/19/25 08:59 Discontinued Medications Albuterol/Ipratropium (Albuterol/Ipratropium (Duoneb) Rt Tari 3 Ml Nebu) 3 ml INH X1 ONE Stop: 03/19/25 23:08 Last Admin: 03/19/25 23:22 Dose: 3 ml Assessment & Plan Plan Rajni Dunbar is 85 yr female with PMH of hypertension, hyperlipidemia, CHF HFpEF 50 to 55% (01/07/2023), on 2L o2, history of PE, GERD, and history of overactive bladder presenting to ED with daughter due to worsening weakness, SOB, and LE swelling since past 1 week. Discharged from [facility] one week ago with jose miguel Perea for PNA. Patient admitted for CHF exacerbation and constipation. #Acute CHF exacerbation Mild SOB walking short distances, using more of home O2, LE +2 pitting edema. CXR reading PNA but low concern due to absence of fever, no leukocytosis, no elevated procal. [facility] Patient follows with quality control engineering technician in [place]. Last appt was about 1 month ago with next apt coming up on the . Echo was completed outpatient. Home meds: Lasix 20 mg daily, metoprolol tartrate 50 BID (rec pending) -day team to consider repeat echo inpatient -IV lasix 40mg daily -daily weights -strict INOs -low sodium diet -restrict fluid to 1500mL -keep potassium >4, mag >2 -daily CBC, CMP -ABG pending #Hypertensive urgency-resolved #HTN BP 180/85, no end organ damage. home meds: Losartan 50 mg daily, amlodipine 10 mg, furosemide 20 mg, metoprolol tartrate 50 mg twice daily -resume pending med rec -BP controlled now #Constipation Since past 1 week, some abdominal pain to palpation. Daughter tried stool softener at home, pt denied suppository. -senna 1 tab daily -water enema -monitor movements #HLD -resume pravastatin 20 mg equivalent atorvastatin 10mg -lipid panel pending #LBBB Causes include htn, HF. She has no chest pain, troponins negative, EKG showed LBBB, rate 94, qtc 512. Noted to have LBBB in past EKG as well. -monitor Qtc before giving prolonging agents -monitor electrolytes #Thyroid nodules #Pulmonary nodules Noted on CTA chest to have thyromegaly with thyroid nodules largest in the right lobe 12 mm. Daughter denies thyroid diseae in pt. Largest pulmon nodule 19 mm in the right upper lobe with mediastinal LAD. TSH 0.31 on 03/2024. -repeat TSH -follow up outpatient for u/s thyroid -would need biopsy of lung nodule Health maintenance: Dispo: tele, CHF ex, constipation, PT eval pending FEN: cardiac, fluid restrict DVT prophylaxis: Lovenox 40 CODE STATUS: Full code The patient's management plan was discussed with my attending physician Dr. Love. Tory Hedrick, PGY-2 Attending Provider Attestation/Addendum After examination of the patient and review of the clinical data I feel that this patient needs admission to the hospital for further treatment/evaluation. Plan of care discussed with patient and is in agreement. I Helen Love MD, attest that I was physically present for jack portions of evaluation, and examined patient, labs and imagings and plan of care were discussed with IM residents team, and I agree with the findings and plans documented above.
[2025-03-20 00:15] LABS: COVID-19 Antigen (In-House) Negative (Negative)
[2025-03-20] MEDS: ACETAMINOPHEN 325 MG TABLET 650 MG PO ×3 (04:01→18:04)
--- NOTE | 2025-03-20 04:07 | PC.NURSE ---
REPORT GIVEN TO SUZIE TERESA AT TELE.
[2025-03-20 04:53] LABS: Basophils # (Auto) 0.0 Thou/mm3 (0.0-0.2); Basophils % (Auto) 0 % (0-2.5); Eosinophils # (Auto) 0.3 Thou/mm3 (0.0-0.5); Eosinophils % (Auto) 3 % (0-10); Hematocrit 34.1 % (36.0-46.0); Hemoglobin 11.2 g/dL (12.0-16.0); Immature Granulocytes Auto 0.04 Thou/mm3 (0.00-0.00); Lymphocytes # (Auto) 2.6 Thou/mm3 (1.0-4.8); Lymphocytes % (Auto) 29 % (10-50); Mean Corpuscular HGB Conc 32.8 g/dl (31.0-37.0); Mean Corpuscular Hemoglobin 30.1 pg (25.0-35.0); Mean Corpuscular Volume 92 fL (80-100); Monocytes # (Auto) 0.6 Thou/mm3 (0.0-0.8); Monocytes % (Auto) 7 % (0-12); Neutrophils # (Auto) 5.3 Thou/mm3 (1.8-7.7); Neutrophils % (Auto) 60 % (37-80); Nucleated Red Blood Cell # 0.00 Thou/mm3 (0.00-0.00); Nucleated Red Blood Cell % 0 /100 WBC (0); Platelet Count 318 Thou/mm3 (140-440); RDW Standard Deviation 45.0 fL (36.4-46.3); Red Blood Count 3.72 Miln/mm3 (4.00-5.20); White Blood Count 8.8 Thou/mm3 (3.6-11.0)
[2025-03-20 05:16] LABS: Magnesium 1.9 mg/dL (1.6-2.6); Phosphorous 2.8 mg/dL (2.4-5.1); Thyroid Stimulating Hormone 3.57 uIU/mL (0.55-4.78)
[2025-03-20] MEDS: ENOXAPARIN SOD INJ 40 MG/0.4 ML SYRINGE SC (09:21)
[2025-03-20] MEDS: FUROSEMIDE INJ 10 MG/ML 4ML VIAL 40 MG IVP ×2 (09:21→18:02)
[2025-03-20] MEDS: METOPROLOL TARTRATE 25 MG TABLET 50 MG PO ×2 (09:22→20:14)
[2025-03-20] MEDS: PANTOPRAZOLE 40 MG TABLET PO (09:22)
--- NOTE | 2025-03-20 11:16 | ESPR_ITS ---
<Statement entered by Kamlesh Padilla MD - 03/20/25 15:40> Patient was examined and case was reviewed with team including attending physician. Note reviewed, I agree with most of its contents and agree with the patient's care. Patient seen today at the bedside found awake, alert, orientedx3. No overnight events reported. Vital signs and labs reviewed. On lasix 40mg IV BID for CHF exacerbation, low suspicion of pneumonia at this time given no clinical symptoms or signs. If continued improvement clinically can be discharged in the next 24- 48 hours. Case discussed with my attending Dr. Janina Padilla MD PGY-2 Documentation for date of: 03/20/25 Subjective Subjective Interval history: Patient was seen at the bedside this morning and reported experiencing orthopnea. After repositioning with the head of the bed elevated, patient?s oxygen saturation improved to 97% on 2L of O2. Patient also complained of weakness and shortness of breath when standing. Patient denies any worsening of cough or sputum production. Lasix was increased from 40 mg daily to 40 mg twice daily. Resumed home metoprolol 50 mg twice daily. Exam Vital Signs Temp Pulse Resp BP Pulse Ox O2 Del Method O2 Flow Rate 97.2 F 76 26 H 114/65 98 Nasal Cannula 1 03/20/25 08:00 03/20/25 09:22 03/20/25 08:00 03/20/25 09:22 03/20/25 08:00 03/20/25 08:00 03/20/25 08:00 Narrative Exam Physical Exam General: Awake and in no acute distress. Conversational and non-toxic appearing. NC 2L O2. HEENT: Normocephalic, atraumatic, mucous membranes moist. Heart: Regular rate and rhythm, no murmurs. Non-labored respirations, symmetric chest rise, no use of accessory muscles. Lungs: Clear to auscultation with no wheezing or crackles. Abdomen: Soft, nondistended, nontender. No guarding or rebound tenderness. Neurologic: Alert and oriented x3, no gross neurological deficit, and patient able to move all 4 extremities. Extremities: Bilateral 2+ pitting edema. Skin: No rash or ecchymoses. Psychiatric: Cooperative, appropriate mood and affect Objective Labs 03/21/25 09:25 03/21/25 04:30 Labs: Laboratory Results - last 24 hr 03/19/25 03/19/25 03/19/25 00:00 18:12 23:40 WBC 8.4 RBC 4.12 Hgb 12.2 Hct 37.2 MCV 90 MCH 29.6 MCHC 32.8 RDW Std Deviation 43.5 Plt Count 358 Neut % (Auto) 63 Lymph % (Auto) 30 [place] % (Auto) 4 Eos % (Auto) 2 Baso % (Auto) 0 Neut # (Auto) 5.3 Lymph # (Auto) 2.5 [place] # (Auto) 0.4 Eos # (Auto) 0.2 Baso # (Auto) 0.0 Immature Gran # (Auto) 0.03 H Absolute Nucleated RBC 0.00 Immature Gran % 0 Nucleated RBC % 0 Puncture Site Left Radial ABG pH 7.42 ABG pCO2 38 ABG pO2 61 L ABG HCO3 25 ABG O2 Saturation 91 ABG Base Excess 1 FiO2 21 Sodium 138 Potassium 3.8 Chloride 104 Carbon Dioxide 23.5 Anion Gap 11 BUN 10 Creatinine 0.8 Estim Creat Clear Calc 50.8 L eGFR > 60 BUN/Creatinine Ratio 13 Glucose 103 Calculated Osmolality 274 L Calcium 10.7 H Corrected Calcium 10.7 H Phosphorus Magnesium Total Bilirubin 0.5 AST < 8 ALT 15 Alkaline Phosphatase 124 H Troponin I < 0.020 B-Natriuretic Peptide 87 Total Protein 8.3 H Albumin 5.0 H Globulin 3.3 Albumin/Globulin Ratio 1.5 Procalcitonin 0.06 TSH SARS-CoV-2 Ag (Rapid) Negative 03/20/25 04:43 WBC 8.8 RBC 3.72 L Hgb 11.2 L Hct 34.1 L MCV 92 MCH 30.1 MCHC 32.8 RDW Std Deviation 45.0 Plt Count 318 D Neut % (Auto) 60 Lymph % (Auto) 29 [place] % (Auto) 7 Eos % (Auto) 3 Baso % (Auto) 0 Neut # (Auto) 5.3 Lymph # (Auto) 2.6 [place] # (Auto) 0.6 Eos # (Auto) 0.3 Baso # (Auto) 0.0 Immature Gran # (Auto) 0.04 H Absolute Nucleated RBC 0.00 Immature Gran % 1 H Nucleated RBC % 0 Puncture Site ABG pH ABG pCO2 ABG pO2 ABG HCO3 ABG O2 Saturation ABG Base Excess FiO2 Sodium Potassium Chloride Carbon Dioxide Anion Gap BUN Creatinine Estim Creat Clear Calc eGFR BUN/Creatinine Ratio Glucose Calculated Osmolality Calcium Corrected Calcium Phosphorus 2.8 Magnesium 1.9 Total Bilirubin AST ALT Alkaline Phosphatase Troponin I B-Natriuretic Peptide Total Protein Albumin Globulin Albumin/Globulin Ratio Procalcitonin TSH 3.57 SARS-CoV-2 Ag (Rapid) ABG Interpretation ABG results: 03/19/25 00:00 ABG pH 7.42 ABG pCO2 38 ABG pO2 61 L ABG HCO3 25 ABG O2 Saturation 91 ABG Base Excess 1 Quality Measures Quality Measures VTE prophylaxis Advance care planning discussed with:: patient Assessment & Plan Assessment Current Active Medications: Generic Name Dose Route Start Last Admin Trade Name Freq PRN Reason Stop Dose Admin Acetaminophen 650 mg 03/19/25 23:31 03/20/25 04:01 Acetaminophen 325 Mg Tablet PO 04/18/25 23:30 650 mg Q6H PRN Administration Fever >100.4 or pain 1-3 Enoxaparin Sodium 40 mg 03/20/25 09:00 03/20/25 09:21 Enoxaparin Sod Inj 40 Mg/0.4 Ml Syringe SC 04/03/25 08:59 40 mg QDAY NANNETTE Administration Furosemide 40 mg 03/20/25 18:00 Furosemide Inj 10 Mg/Ml 4ml Vial IVP 04/19/25 17:59 BIDD NANNETTE Metoclopramide HCl 10 mg 03/19/25 23:36 Metoclopramide Inj 5 Mg/Ml Vial 2 Ml IVP 04/18/25 23:35 Q6H PRN NAUSEA OR VOMITING Protocol Metoprolol Tartrate 50 mg 03/20/25 09:00 03/20/25 09:22 Metoprolol Tartrate 25 Mg Tablet PO 04/19/25 08:59 50 mg BID NANNETTE Administration Pantoprazole Sodium 40 mg 03/20/25 09:00 03/20/25 09:22 Pantoprazole 40 Mg Tablet PO 04/19/25 08:59 40 mg QDAY NANNETTE Administration Sennosides 1 tab 03/20/25 09:00 03/20/25 09:22 Senna Tablet PO 04/19/25 08:59 1 tab QDAY NANNETTE Administration Protocol Plan 85 year-old female with PMH of hypertension, hyperlipidemia, CHF HFpEF 50 to 55% (01/07/2023), on 2L O2, history of PE, GERD, and history of overactive bladder presenting to ED for worsening weakness, SOB, and LE swelling since past 1 week. Discharged from [facility] one [facility] ago with jose miguel Perea for PNA. Patient admitted for CHF exacerbation and constipation. #Acute CHF exacerbation Patient endorsed shortness of breath, worse with laying flat and walking short distances. Patient uses 2L O2 at home. History of HFpEF 50 to 55% in 12/2022. Follows with hand striper in [place]. Last appt was about 1 month ago with next apt coming up on the . Echo was completed outpatient. CXR 03/19: Significant bilateral pneumonia. Afebrile, no leukocytosis, no elevated procal. BNP 87 wnl. Plan: - Increased IV Lasix 40mg daily to BID. - Resumed home metoprolol 50 mg BID. - Strict ins and outs. - Daily weights. - Fluid restriction 1500 ml. - Supplemental O2 as needed, wean as tolerated. - Cardiac diet. - PT eval. #Hypertensive urgency (resolved) #Hypertension BP 180/85 on admission. No end organ damage. Home medications: Losartan 50 mg daily, Amlodipine 10 mg, Furosemide 20 mg, Metoprolol tartrate 50 mg twice daily. Plan: - Resumed home metoprolol 50 mg BID. #Constipation Plan - Senna 1 tab daily. - Water enema. - Monitor bowel movements. #Hyperlipidemia Home medication: Pravastatin 20mg. Lipid panel: triglycerides 85, cholesterol 168, LDL 106, HDL 45. Plan: - Started Atorvastatin 10mg (equivalent to Pravastatin 20mg). #LBBB EKG showed LBBB, rate 94, Qtc 512. Noted to have LBBB in past EKG on 04/2024. Troponins negative. Plan: - Monitor Qtc before giving prolonging agents. - Monitor electrolytes. #Thyroid nodules No history of thyroid disease. Chest CTA 03/19/25: thyromegaly with thyroid nodules. Chest/Abd/Pelvis CTA 04/12/24: right thyromegaly with 13 mm right thyroid nodule. Chest CT 03/02/24: bilateral thyromegaly, 16mm right thyroid nodule. TSH 3.57 wnl. Plan: - Follow up outpatient for thyroid ultrasound. #Pulmonary nodules Chest CTA 03/19/25: numerous bilateral pulmonary nodules. Chest CT 08/08/23: 9 mm pulmonary nodule left lower lobe. Chest CTA 01/11/23: 9 mm pulmonary nodule spiculated margins left lower lobe. Plan: - Follow up outpatient for lung nodule biopsy. Health Maintenance Disposition: Tele DVT prophylaxis: Lovenox 40 mg SC GI prophylaxis: Pantoprazole 40 mg IV daily Diet: Cardiac with fluid restriction CODE STATUS: FULL Patient plan of care was discussed with the senior resident, Dr. Cali Padilla, and attending physician, Dr. Roa. Antony Guzman, PGY-1 Attending Provider Attestation/Addendum I have examined the patient, reviewed labs and imaging findings, discussed the case with the resident(s), and reviewed entered orders. I agree with the plan of care as outlined in this note. Dr. Janina MD
[2025-03-20] MEDS: METOCLOPRAMIDE INJ 5 MG/ML VIAL 2 ML 10 MG IVP (12:03)
--- NOTE | 2025-03-20 14:32 | PC.SS ---
Rajni Dunbar is a 85-year-old female admitted to [facility] for CHF exacerbation. SS conducted over the phone contact with pt dtr Jyothi Dunbar [phone] to complete initial assessment and to discuss discharge planning. Role and reason explained. Jyothi confirmed demographic information. Jyothi identifies herself as the pts surrogate decision maker. Pt lives with her son Lenin and is able to complete all ADL?s independently. Pt has a rollator and FWW at home. Pts PCP is Dr. Padilla. Pharmacy of choice is [facility]. Discharge options discussed and the pt wishes to return home.? Family will provide transportation upon DC. No further intervention required at this time, social scientist would be available to address any further concerns. DC Plan: Home Contact: Jyothi Willis Address: Confirmed on face sheet PCP: Randy
[2025-03-20] MEDS: ATORVASTATIN CALCIUM 10 MG TABLET PO (20:14)
[2025-03-21] VITALS (8 sets, daily range): BP systolic 102–156; BP diastolic 54–79; PULSE 64–82; RESP 12–27; TEMP 36.1–36.8; O2SAT 97–100
[2025-03-21 06:02] LABS: Basophils # (Auto) 0.0 Thou/mm3 (0.0-0.2); Basophils % (Auto) 0 % (0-2.5); Eosinophils # (Auto) 0.3 Thou/mm3 (0.0-0.5); Eosinophils % (Auto) 4 % (0-10); Hematocrit 29.6 % (36.0-46.0); Hemoglobin 9.5 g/dL (12.0-16.0); Immature Granulocytes Auto 0.02 Thou/mm3 (0.00-0.00); Lymphocytes # (Auto) 3.0 Thou/mm3 (1.0-4.8); Lymphocytes % (Auto) 44 % (10-50); Mean Corpuscular HGB Conc 32.1 g/dl (31.0-37.0); Mean Corpuscular Hemoglobin 29.7 pg (25.0-35.0); Mean Corpuscular Volume 93 fL (80-100); Monocytes # (Auto) 0.5 Thou/mm3 (0.0-0.8); Monocytes % (Auto) 7 % (0-12); Neutrophils # (Auto) 3.0 Thou/mm3 (1.8-7.7); Neutrophils % (Auto) 45 % (37-80); Nucleated Red Blood Cell # 0.00 Thou/mm3 (0.00-0.00); Nucleated Red Blood Cell % 0 /100 WBC (0); Platelet Count 262 Thou/mm3 (140-440); RDW Standard Deviation 46.1 fL (36.4-46.3); Red Blood Count 3.20 Miln/mm3 (4.00-5.20); White Blood Count 6.8 Thou/mm3 (3.6-11.0)
[2025-03-21 06:08] LABS: Magnesium 1.4 mg/dL (1.6-2.6); Phosphorous 3.3 mg/dL (2.4-5.1)
[2025-03-21] MEDS: FUROSEMIDE INJ 10 MG/ML 4ML VIAL 40 MG IVP (06:17)
[2025-03-21 09:08] LABS: Alanine Aminotransferase 19 U/L (10-49); Albumin, Serum 3.6 gm/dL (3.4-4.8); Alkaline Phosphatase 88 U/L (46-116); Anion Gap 9 (7-16); Aspartate Amino Transferase 28 U/L (0-34); BUN/Creatinine Ratio 13 Ratio (12-20); Bilirubin,Total 0.3 mg/dL (0.3-1.2); Blood Urea Nitrogen 12 mg/dL (9-23); Calcium 9.1 mg/dL (8.3-10.6); Calcium (Corrected) 9.4 mg/dL (8.5-10.1); Carbon Dioxide 27.2 mMol/L (20.0-31.0); Chloride 105 mMol/L (98-107); Creatinine (Component) 0.9 mg/dL (0.6-1.3); Estimated Creatinine Clearance 44.9 mL/min (>60); Glucose 86 mg/dL (74-106); Osmolality,Calculated 279 (275-295); Potassium 4.0 mMol/L (3.4-5.1); Sodium 141 mMol/L (136-145); eGFR > 60 See Note
[2025-03-21 09:42] LABS: Hematocrit 31.0 % (36.0-46.0); Hemoglobin 10.1 g/dL (12.0-16.0)
[2025-03-21] MEDS: PANTOPRAZOLE 40 MG TABLET PO (09:54)
[2025-03-21] MEDS: ENOXAPARIN SOD INJ 40 MG/0.4 ML SYRINGE SC (09:54)
[2025-03-21] MEDS: Magnesium Sulfate 4 GM Ivpb 4 GM/50 ML BAG IV (09:54)
[2025-03-21] MEDS: METOPROLOL TARTRATE 25 MG TABLET 50 MG PO (09:55)
--- NOTE | 2025-03-21 11:51 | ESDS_ITS ---
<Statement entered by Ag Fermin MD - 04/03/25 09:16> I reviewed above note and agree with findings and plans. I have also personally examined the patient with medicine team and went over assessment and plan with medical team including internet cafe manager and resident physician. <Statement entered by Kamlesh Padilla MD - 03/21/25 16:46> Patient was examined and case was reviewed with team including attending physician. Note reviewed, I agree with most of its contents and agree with the patient's care as documented by Dr. Thomas Padilla MD PGY-2 Planned Discharge Date 03/21/25 DS: Providers Provider Date of admission: 03/19/25 23:31 Primary care physician: Jose Padilla MD Admitting Provider: Marnie Rm MD Attending Provider on Admission: Ag Fermin MD Consults: 03/20/25 00:42 Referral Physical Therapy Routine Comment: worsening weakness per daughter Physician Instructions: Attending Provider on DC: Ag Fermin MD Discharging Provider: Antony Guzman DO Anticipated date of discharge: 03/21/25 DS: Diagnosis Problem List Completed Was Problem List Reviewed/Reconciled?: Yes Hospital Course Hospital Course Hospital course: 85-year-old female with a history of hypertension, hyperlipidemia, HFpEF 50-55%, and recent pneumonia presented with worsening weakness, shortness of breath, and lower extremity swelling for 1 week. She was previously treated for pneumonia at [facility] but continued to experience symptoms, including increased oxygen needs and constipation. Patient admitted for acute CHF exacerbation and constipation. IV furosemide 40 mg BID was started, and her oxygen requirements were managed with supplemental O2. Strict fluid restrictions, daily weights, and monitoring of intake/output were implemented. The patient responded well to the treatment, and her oxygen saturation improved. Blood pressure control was achieved with resumption of home metoprolol 50mg BID. Constipation was managed with oral Senna and a water enema. Imaging showed bilateral pulmonary nodules and thyroid enlargement with right thyroid nodule. Outpatient follow-up for thyroid ultrasound and lung nodule biopsy was recommended. Her left bundle branch block was stable and seen on previous EKGs. Patient is medically and physically stable for discharge. Diagnosis: #Acute Congestive Heart Failure Exacerbation #Hypertensive Urgency (resolved) #Constipation #Hyperlipidemia #Left Bundle Branch Block, seen on previous EKGs #Thyroid Nodules #Pulmonary Nodules Discharge Plan: Follow up with primary care physician within 1 week of discharge. Follow up with your Operational Assistant to get results of your echocardiogram. Please take your medications as prescribed. Stop taking your home medication Lasix 20 mg per day. Start your new medication of Lasix 40 mg per day. Follow up with your primary doctor in regards to your pulmonary and thyroid nodules. Should any symptoms recur or worsen patient is instructed to return to the ED. Case discussed with my senior resident Dr. Cali Padilla Case discussed with my attending Dr. Fermin. Antony Guzman DO PGY 1 Time Spent with Patient Time attestation: Total time spent providing and/or coordinating discharge services: Time spent: Greater than 30 minutes Exam Vital Signs Temp Pulse Resp BP Pulse Ox O2 Del Method O2 Flow Rate 96.9 F 65 18 115/62 100 Nasal Cannula 2 03/21/25 08:00 03/21/25 09:55 03/21/25 08:00 03/21/25 09:55 03/21/25 08:00 03/21/25 08:00 03/21/25 08:00 Narrative Exam Physical Exam General: Awake and in no acute distress. Conversational and non-toxic appearing. NC 2L O2. HEENT: Normocephalic, atraumatic, mucous membranes moist. Heart: Regular rate and rhythm, no murmurs. Non-labored respirations, symmetric chest rise, no use of accessory muscles. Lungs: Mild crackles of Right lower lobe on auscultation. Clear to auscultation in remaining lung daily. Abdomen: Soft, nondistended, nontender. No guarding or rebound tenderness. Neurologic: Alert and oriented x3, no gross neurological deficit, and patient able to move all 4 extremities. Extremities: Bilateral 2+ pitting edema. Skin: No rash or ecchymoses. Psychiatric: Cooperative, appropriate mood and affect Discharge Plan Plan Patient Disposition: HOME (Self Care) Care Plan Goals: Realice un seguimiento con buckley m?dico de cabecera dentro de la semana posterior al bob. Consulte con buckley cardi?logo para obtener los resultados de buckley ecocardiograma. [place] reyes medicamentos seg?n lo prescrito. Deje de caleb buckley medicamento casero Lasix de 20 mg al d?a. Inicie buckley nuevo medicamento Lasix de 40 mg al d?a. Consulte con buckley m?dico de cabecera para consultar sobre reyes n?dulos pulmonares y tiroideos. Si alg?n s?ntoma reaparece o empeora, se le indica al paciente que regrese a urgencias. Follow up with primary care physician within 1 week of discharge Follow up with your Operational Assistant to get results of your echocardiogram Please take your medications as prescribed Stop taking your home medication Lasix 20 mg per day Start your new medication of Lasix 40 mg per day Follow up with your primary doctor in regards to your pulmonary and thyroid nodules. Should any symptoms recur or worsen patient is instructed to return to the ED. Prescriptions/Referrals Prescriptions/Med Rec: New furosemide [Lasix] 40 mg tablet 40 mg PO QDAY Qty: 30 0RF Continued latanoprost 0.005 % drops 1 drp Left eye HS Patient Comments: INSTILL ONE DROP INTO LEFT EYE AT BEDTIME omeprazole 20 mg capsule,delayed release(DR/EC) 20 mg PO QDAY amlodipine 10 mg tablet 10 mg PO QDAY Patient Comments: TAKE 1 TABLET BY MOUTH EVERY DAY pravastatin 20 mg Tablet 20 mg PO HS dorzolamide-timolol 22.3-6.8 mg/mL Drops 1 drp OPHTHALMIC (EYE) BID losartan 50 mg tablet 50 mg PO QDAY Qty: 30 0RF Rx Instructions: Hold if SBP drops below 100 and 60 mmHg Discontinued furosemide 20 mg tablet 20 mg PO QDAY Referrals: Jose Padilla MD [Primary Care Provider, Family Practice] Patient/Caregiver Discharge Instructions Education Materials: Heart Failure Dc Print Language: Yakut Stand Alone Forms: Remicalm Info., Patient Portal Info Letter Discharge Order Discharge Orders: Discharge (Routine); Ordered 03/21/25 Ordered By: Kamlesh Padilla Quality Discharge Quality Measures VTE prophylaxis
[2025-03-21 12:58] LABS: Albumin/Globulin Ratio 1.6 (1.2-2.2); Globulin 2.3 gm/dL (2.3-3.5); Total Protein 5.9 gm/dL (5.7-8.2)
== END 2025-03-21 18:09 | disposition home or self-care (01) ==
LOC: SERX 22:55 → SERHOLD 03-20 00:41 → S2NX 03-20 06:20 → SERHOLD 03-21 14:56 → S2NX 03-21 14:56
PROVIDERS: Nurse Practitioner Family; Student in an Organized Health Care Education/Training Program; Admitting Provider Emergency Medicine; Emergency Provider Emergency Medicine; PCP Family Medicine; Visit Provider Internal Medicine
DX: I11.0 Hypertensive heart disease with heart failure (principal); I50.32 Chronic diastolic (congestive) heart failure; K59.00 Constipation, unspecified; E78.5 Hyperlipidemia, unspecified; I44.7 Left bundle-branch block, unspecified; E04.2 Nontoxic multinodular goiter; Z86.711 Personal history of pulmonary embolism
CPT/HCPCS: 36415; 36600; 71045; 71275; 74018; 80053; 81001; 82803; 83735; 83880; 84100; 84145; 84443; 84484; 85014; 85018; 85025; 87811; 93005; 94640; 96365; 96366; 96372; 96375; 96376; 97162; 99284; A4649; A9270; G0378; J1650; J1938; J2765; J3475; Q9967